=== PATIENT | female | born 1950 | race Two or more races ===

== ENCOUNTER 2024-11-03 17:48 | Inpatient (IN) | payer MEDICARE, MEDICAID ==
[~2024-11-03] VITALS: Ht 165.1 cm; Wt 73.8 kg
[~2024-11-03 17:48] MED LIST: CEFU250T68 PO; INSU1INJ19 SC; LEVO500T91 PO; LOSA-534 PO; METF-372 PO; OMEP1CAP70 PO; PIOG1TAB36 PO; PRAV20TA3 PO; SITA50TA PO
[2024-11-03 18:15] VITALS: PULSE 114; RESP 30; O2SAT 96
[2024-11-03 18:47] LABS: Basophils # (auto) 0 10 ^3/uL (0-0.2); Basophils % (auto) 0.3 % (0.0-2.0); Eosinophils # (auto) 0 10 ^3/uL (0-0.8); Eosinophils % (auto) 0.6 % (0.0-7.0); Lymphocytes # (auto) 1.5 10 ^3/uL (0.4-5.4); Lymphocytes % (auto) 23.6 % (10.0-50.0); Mean Corpuscular Hemoglobin 27.5 pg (28.0-32.0); Mean Corpuscular Hgb Conc. 34.2 g/dL (32.0-36.0); Mean Corpuscular Volume 80.3 fL (80.0-100.0); Monocytes # (auto) 0.4 10 ^3/uL (0-1.3); Neutrophils # (auto) 4.4 10 ^3/uL (1.6-8.6); Neutrophils % (auto) 68.5 % (37.0-80.0); Platelet Count (auto) 331 10^3/uL (140-450); Red Blood Cells 4.36 10^6/uL (4.0-5.20); White Blood Cell 6.4 10^3/uL (4.4-10.8)
--- NOTE | 2024-11-03 18:54 | DVH ---
CHEST RADIOGRAPH Indication: cp Technique: Single frontal view of the chest was obtained COMPARISON: None FINDINGS: Lines and Tubes: None Lungs: Probable mild interstitial pulmonary edema. Pleura: No effusion. No pneumothorax. Cardiomediastinal contours: Unremarkable Bones: Unremarkable IMPRESSION: 1. Probable mild interstitial pulmonary edema.
--- NOTE | 2024-11-03 19:03 | ECG ---
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
[2024-11-03 19:07] LABS: Alanine Aminotransferase 15 U/L (7-40); Albumin 3.9 g/dL (3.2-4.8); Alkaline Phosphatase 58 U/L (46-116); Anion Gap 10 (5-15); BUN/Creatinine Ratio 25.3 (10.0-20.0); Bilirubin, Total 0.4 mg/dL (0.2-1.0); Carbon Dioxide 25 mmol/L (20-31); Chloride 104 mmol/L (98-107); Sodium 139 mmol/L (136-145); Total Protein 7.2 g/dL (5.7-8.2)
[2024-11-03 19:14] LABS: Aspartate Aminotransferase 12 U/L (13-40); Blood Urea Nitrogen 23 mg/dL (9-23); Glucose 162 mg/dL (74-106)
[2024-11-03 19:45] VITALS: PULSE 101; RESP 26; O2SAT 96
[2024-11-03 20:01] LABS: Urine Bacteria FEW /hpf (None Seen); Urine Blood 1+ /uL (Negative); Urine Clarity Clear (Clear); Urine Color Light-Yellow (Yellow); Urine Hyaline Cast FEW /lpf (0 - 2); Urine Mucus FEW (None Seen); Urine Protein, UAD 2+ (Negative); Urine Specific Gravity 1.015 (1.001-1.035); Urine Squamous Epithelial Cell MOD /hpf (<5); Urine Urobilinogen Normal (Negative); Urine WBC 4 /HPF (0-5); Urine pH 7.5 (5.0-9.0)
[2024-11-03] MEDS: IOHEXOL 350 MG/ML 100ML IJ ONE (20:46)
--- NOTE | 2024-11-03 21:23 | DVH ---
EXAM: CT CT ANGIO CHEST CONTRAST History: sob Comparison Study: None TECHNIQUE: A digital vp of digital marketing image was obtained. During the uneventful, intravenous administration of c ontrast material, multislice data acquisition was obtained through the chest. 3-D postprocessing is performed by technologist including MIP imaging Radiation Dose : CTDI vol 27.19 mGy, DLP 1096.48 mGy*cm. Findings: Lungs: Multifocal ground-glass opacities in both lungs. Pleura: Unremarkable Heart/Great vessels: No cardiomegaly or pericardial effusion. No pulmonary embolism, aneurysm, or dis section. Moderate coronary atherosclerosis. Mediastinum: Prominent mediastinal and hilar nodes. Soft tissues/Bones: Mild multilevel degenerative changes of the thoracic spine. Cholelithiasis. The partially visualized upper abdomen is within normal limits. Impression: 1. No evidence of a pulmonary embolism, aneurysm, or dissection. 2. Multifocal ground-glass opacities in both lungs favored an infectious/inflammatory etiology. 3. Prominent mediastinal hilar nodes favored reactive.
--- NOTE | 2024-11-03 22:25 | ED.PDOC ---
HPI Comments 74-year-old female complaining of chest pain no shortness a breath which he was sudden onset approximate 1 hour prior to arrival. Brought in by EMS. Reports it as sharp and dull in nature on the left side. EMS states that upon arrival her heart rate is in the 170s, showing AFib RVR upon arrival to the ER he had heart rate down to 130s showing sinus tach when EKG. Patient reports improvement in the chest pain. Still feeling short of breath. Patient denies any prior cough fever congestion. No prior cardiac history. Chief Complaint: Shortness of Breath Time Seen by MD: 18:00 Reviewed Notes: Nurses Notes Allergies: Coded Allergies: NO KNOWN ALLERGIES (Unverified , 11/03/24) Information Source: Patient Mode of Arrival: EMS Past Medical History PAST MEDICAL HISTORY: Denies Surgical History: AKA, Denies all surgeries CLIPMAN History: No Pertinent CLIPMAN History Constitutional: reports: fatigue, malaise; denies: chills, diaphoresis, fever, sweats, weakness, others EENTM: denies: blurred vision, double vision, ear bleeding, ear discharge, ear drainage, ear pain, ear ringing, eye pain, eye redness, hearing loss, mouth pain, mouth swelling, nasal discharge, nose bleeding, nose congestion, nose pain, photophobia, tearing, throat pain, throat swelling, voice changes, others Respiratory: reports: SOB at rest; denies: cough, hemoptysis, orthopnea, shortness of breath, SOB with excertion, stridor, wheezing, others Cardiovascular: reports: chest pain; denies: dizzy spells, diaphoresis, Dyspnea on exertion, edema, irregular heart beat, left arm pain, lightheadedness, palpitations, PND, syncope, others Gastrointestinal: denies: abdomen distended, abdominal pain, blood streaked bowels, constipated, diarrhea, dysphagia, difficulty swallowing, hematemesis, melena, nausea, poor appetite, poor fluid intake, rectal bleeding, rectal pain, vomiting, others Genitourinary: denies: abnormal vagina bleeding, burning, dyspareunia, dysuria, flank pain, frequency, hematuria, incontinence, pain, , vagina discharge, urgency, others Neurological: denies: dizziness, fainting, headache, left sided numbness, left sided weakness, numbness, paresthesia, pre-existing deficit, right sided numbnes s, right sided weakness, seizure, speech problems, tingling, tremors, weakness, others Musculoskeletal: denies: back pain, gout, joint pain, joint swelling, muscle pain, muscle stiffness, neck pain, others Integumetry: denies: bruises, change in color, change in hair/nails, dryness, laceration, lesions, lumps, rash, wounds, others Physical Exam General Appearance: Moderate Distress HEENT: Normal ENT Inspection, Pharynx Normal, TMs Normal Neck: Full Range of Motion, Non-Tender, Normal, Normal Inspection Respiratory: Chest Non-Tender, Lungs Clear, No Accessory Muscle Use, No Respiratory Distress, Normal Breath Sounds Cardiovascular: No Edema, No JVD, No Murmur, No Gallop, Normal Peripheral Pulses, Regular Rate/Rhythm Breast Exam: Deferred Gastrointestinal: No Organomegaly, Non Tender Genitalia: Deferred Pelvic: Deferred Rectal: Deferred Extremities: No calf tenderness, Normal capillary refill, No pedal edema Musculoskeletal : Apperance: Normal Neurologic: Alert, river guide II-XII nml as Tested, No Motor Deficits, Normal Affect, Normal Mood, No Sensory Deficits Cerebellar Function: Normal Reflexes: Normal Skin: Dry, Normal Color, Warm Lymphatic: No Adenopathy Was a procedure done? Was a procedure done?: No CP Differential Dx Differential Diagnosis: A-fib, Angina, Anxiety / Panic Attack, Heart Failure, NH, V-Fib, V-Tach X-Ray, Labs, Meds, VS Vital Signs Date Time Temp Pulse Resp B/P (MAP) Pulse Ox O2 Delivery O2 Flow Rate FiO2 11/03/24 20:00 101 11/03/24 19:46 98.7 101 26 163/78 (106) 99 98.7 11/03/24 19:45 101 26 96 Nasal Cannula* 4 36 11/03/24 18:15 114 30 96 Nasal Cannula* 4 36 11/03/24 18:15 98.9 114 30 168/78 (108) 96 98.9 11/03/24 18:05 115 11/03/24 17:57 98.6 130 28 142/97 (112) 88 98.6 Lab Test 11/03/24 21:30 11/03/24 20:00 11/03/24 19:00 11/03/24 18:26 Range/Units Troponin I High Sensitivity 93 *H 83 *H 60 *H </=34 ng/L Urine Color Light-yellow Yellow Urine Clarity Clear Clear Urine pH 7.5 5.0-9.0 Urine Specific [place] 1.015 1.001-1.035 Urine Protein 2+ H Negative Urine Ketones Negative Negative Urine Blood 1+ H Negative /uL Urine Nitrite Negative Negative Urine Bilirubin Negative Negative Urine Urobilinogen Normal Negative mg/dL Urine Leukocyte Esterase Negative Negative /uL Urine RBC 14 0 - 4 /hpf Urine Microscopic WBC 4 0-5 /HPF Urine Squamous Epithelial Cells Mod <5 /hpf Urine Bacteria Few H None Seen /hpf Urine Hyaline Casts Few 0 - 2 /lpf Urine Mucus Few None Seen Urine Glucose Trace Normal mg/dL White Blood Count 6.4 4.4-10.8 10^3/uL Red Blood Count 4.36 4.0-5.20 10^6/uL Hemoglobin 12.0 L 12.2-16.2 g/dL Hematocrit 35.0 L 36.0-46.0 % Mean Corpuscular Volume 80.3 80.0-100.0 fL Mean Corpuscular Hemoglobin 27.5 L 28.0-32.0 pg Mean Corpuscular Hemoglobin Concent 34.2 32.0-36.0 g/dL Red Cell Distribution Width 15.0 H 11.8-14.3 % Platelet Count 331 140-450 10^3/uL Mean Platelet Volume 7.8 6.9-10.8 fL Neutrophils (%) (Auto) 68.5 37.0-80.0 % Lymphocytes (%) (Auto) 23.6 10.0-50.0 % Monocytes (%) (Auto) 7.0 0.0-12.0 % Eosinophils (%) (Auto) 0.6 0.0-7.0 % Basophils (%) (Auto) 0.3 0.0-2.0 % Neutrophils # (Auto) 4.4 1.6-8.6 10 ^3/uL Lymphocytes # (Auto) 1.5 0.4-5.4 10 ^3/uL Monocytes # (Auto) 0.4 0-1.3 10 ^3/uL Eosinophils # (Auto) 0 0-0.8 10 ^3/uL Basophils # (Auto) 0 0-0.2 10 ^3/uL Nucleated Red Blood Cells 0.0 % D-Dimer, Quantitative 1.33 H 0.0-0.49 mg/L FEU Sodium Level 139 136-145 mmol/L Potassium Level 5.0 3.5-5.1 mmol/L Chloride Level 104 98-107 mmol/L Carbon Dioxide Level 25 20-31 mmol/L Anion Gap 10 5-15 Blood Urea Nitrogen 23 9-23 mg/dL Creatinine 0.91 0.550-1.02 mg/dL Glomerular Filtration Rate Calc 66 >90 mL/min BUN/Creatinine Ratio 25.3 H 10.0-20.0 Serum Glucose 162 H 74-106 mg/dL Calcium Level 9.0 8.7-10.4 mg/dL Total Bilirubin 0.4 0.2-1.0 mg/dL Aspartate Amino Transferase (AST) 12 L 13-40 U/L Alanine Aminotransferase (ALT) 15 7-40 U/L Alkaline Phosphatase 58 46-116 U/L B-Type Natriuretic Peptide 77.88 0-100 pg/mL Total Protein 7.2 5.7-8.2 g/dL Albumin 3.9 3.2-4.8 g/dL Test 11/03/24 18:06 Range/Units POC Glucose 151 H 70-106 mg/dl X-Ray, Labs, Meds, VS Comment Imaging: X-rays and CT scans were reviewed and interpreted by this provider, im aging shows no fractures and no pathological disease. Pending radiology review. Laboratory: Labs reviewed and interpreted by this provider. Patient was elevated dimer Elevated troponin Patient will be admitted for elevated troponins, ACS, infectious pneumonia Recommend cardiology consult in the morning The patient will be treated with Rocephin and azithromycin, breathing treatment initiated Patient given aspirin 325 Patient has prior medical visits reviewed. Med reconciliation performed Vital signs reviewed Time of 1ST Reevaluation: 22:25 Reevaluation 1ST: Unchanged Patient Education/Counseling: Diagnosis, Treatment Family Education/Counseling: Diagnosis Departure 1 Departure Time of Disposition: 22:23 Impression: Primary Impression: ACS (acute coronary syndrome) Additional Impressions: Pneumonia Qualified Codes: J18.9 - Pneumonia, unspecified organism New onset a-fib Disposition: ADMITTED INPATIENT Condition: Stable Discharged With: Self Critical Care Note Critical Care Time?: No Stability Stability form required: No Heart Score Heart Score: Heart Score Response (Comments) Value History Highly Suspicious 2 EKG Normal 0 Age >65 2 Risk Factors 1 or 2 risk factors 1 Troponin 1-2 x's Normal limit 1 Total 6 AIDEN HOODP November 03, 2024 22:25
--- NOTE | 2024-11-03 22:47 | DVH ---
Left lower extremity venous duplex Clinical History: dvt Comparison: None Technique: Duplex Doppler evaluation of the deep venous system of the left lower extremity from the common femor al vein to the popliteal vein including color Doppler and spectral/pulsed waveform analysis was perfo rmed. Findings: The common femoral vein demonstrates appropriate compressibility and waveform variability. There is compressibility/patency of the great saphenous vein at the proximal thigh. The femoral vein demonstrates appropriate compressibility and waveform variability. The deep femoral vein demonstrates appropriate compressibility and waveform variability. The popliteal vein demonstrates appropriate compressibility and waveform variability. There is normal compressibility at the tibioperoneal trunk. Impression: No evidence of left femoropopliteal venous thrombosis.
[2024-11-03] MEDS: cefTRIAXone SOD 1,000 MG VL IM ONE (22:50)
[2024-11-03] MEDS: ASPirin 325 MG TAB PO ONE (22:51)
[2024-11-03] MEDS: AZITHROMYCIN 500MG/ 250ML 250 ML IV ONE (22:51)
[2024-11-03] MEDS: ALBUTEROL SULF 2.5 MG/0.5ML(0.5%) NEB SOLN NEB ONE (22:52)
[2024-11-03] MEDS: IPRATROPIUM BROM 0.5 MG/2.5ML INH SOL NEB ONE (22:52)
[2024-11-03] MEDS ORDERED: DOCUSATE SOD 100 MG CAP PO PRN (23:00)
[2024-11-03] MEDS ORDERED: ACETAMINOPHEN 325 MG TAB PO PRN (23:00)
[2024-11-03] MEDS ORDERED: MORPHINE SULFATE INJ 2 MG/ml SYRG IV PRN ×2 (23:00)
[2024-11-03] MEDS ORDERED: ONDANSETRON HCL 4 MG/2 ML VIAL IV PRN (23:00)
[2024-11-03] MEDS ORDERED: NITROGLYCERIN 0.4 MG SL TAB SL PRN (23:00)
[2024-11-03] MEDS ORDERED: DEXTROSE (50%) 50ML SYRG IV PRN (23:45)
--- NOTE | 2024-11-03 23:54 | DVHHP2 ---
History of Present Illness History of Present Illness Patient is 78 years old female past medical history of hypertension, diabetes mellitus type 2, hyperlipidemia was brought in by EMS due to acute chest pain and shortness of breaths. As per patient and her daughter patient was sitting in room and suddenly developed shortness of breaths no aggravating or relieving factor patient also endorsed chest pain pressure-like, central 10/10 no aggravating or relieving factor no radiation. On further discussion patient reported having palpitation. Patient and daughter also reported that her left leg has been swollen for more than 1 week also left 5th toe ulceration with some bloody discharge for last 2 weeks. For which she saw her doctor also [place] infectious disease doctor who recommended for MRI of the left foot and put her on levofloxacin. denied any fever or cough or sweating any acute rash or sick contact dysarthria or change in vision. As per EMS record patient had sinus tachycardia rate up to 170, EKG revealed sinus rhythm with sinus tachycardia. Significant lab workup revealed troponin I 60> 83> 93, BNP 77, D-dimer 1.33, CXR Probable mild interstitial pulmonary edema. CT angio chest- No evidence of a pulmonary embolism, aneurysm, or dissection. Multifocal ground-glass opacities in both lungs favored an infectious/inflammatory etiology. Prominent m ediastinal hilar nodes favored reactive. Doppler study of the left lower extremity-No evidence of left femoropopliteal venous thrombosis. Past Medical History Hypertension, diabetes mellitus with complication, diabetic food, suspected peripheral neuropathy, hyperlipidemia Family History Could not provide detailed information Past Social History Lives with daughter, denies smoking/alcoholism/drug abuse Review of Systems Review of Systems Patient was seen today at the bedside. Cardiovascular- deny acute chest pain or shortness of breath or cough or palpitation Respiratory denies cough Gastrointestinal- denies any rectal bleeding, nausea or vomiting Musculoskeletal-left 5th toe ulcer Neurological- denies acute dysarthria, dysphagia, change in vision Psychiatry- denies depression or SI or HI Skin- denies acute rash or purpura Allergies: Coded Allergies: NO KNOWN ALLERGIES (Unverified , 11/03/24) Medications Current Medications Medications Dose Ordered Sig/Sherice Route Start Time Stop Time Status Last Admin Dose Admin Sodium Chloride 10 ml Q8HR IV 11/04/24 06:00 Acetaminophen 325 mg Q4HP PRN PO 11/03/24 23:00 Ondansetron HCl 4 mg Q4HP PRN IV 11/03/24 23:00 Docusate Sodium 100 mg BIDPRN PRN PO 11/03/24 23:00 Morphine Sulfate 2 mg Q4HPRN PRN IV 11/03/24 23:00 Nitroglycerin 0.4 mg Q5MINP PRN SL 11/03/24 23:00 Morphine Sulfate 2 mg Q30M PRN IV 11/03/24 23:00 Enoxaparin Sodium 40 mg DAILY SC 11/05/24 10:00 Aspirin 81 mg DAILY PO 11/04/24 10:00 Atorvastatin Calcium 40 mg HS PO 11/04/24 22:00 Pantoprazole Sodium 40 mg DAILY@0600 PO 11/05/24 06:00 Losartan Potassium 50 mg DAILY PO 11/04/24 10:00 Exam Vital Signs Vital Signs Date Time Temp Pulse Resp B/P (MAP) Pulse Ox O2 Delivery O2 Flow Rate FiO2 11/03/24 23:23 15 140/60 (86) 96 11/03/24 23:00 104 11/03/24 22:52 Simple Mask* 6 50 11/03/24 19:46 98.7 98.7 Exam General examination- awake, alert, oriented HEENT- PEERLA, no acute nasal discharge Cardiovascular- S1-S2 audible, rate and rhythm regular, no murmur Respiratory- CTAB, no wheeze or rhonchi Gastrointestinal-nontender, bowel sound+. Nondistended Musculoskeletal-no acute joint swelling or tenderness or redness Lower extremity- right below-knee amputation, left 5th toe ulceration, left radial pulse positive Neurological- cranial nerves intact, no acute dysarthria or dysphagia Psychiatry- denies depression or SI or HI Skin- no acute rash or purpura Labs/Xrays Labs Test 11/03/24 21:30 11/03/24 19:00 11/03/24 18:26 11/03/24 18:06 Range/Units Magnesium Level 1.4 L 1.6-2.6 mg/dL Troponin I High Sensitivity 93 *H </=34 ng/L Urine Color Light-yellow Yellow Urine Clarity Clear Clear Urine pH 7.5 5.0-9.0 Urine Specific [place] 1.015 1.001-1.035 Urine Protein 2+ H Negative Urine Ketones Negative Negative Urine Blood 1+ H Negative /uL Urine Nitrite Negative Negative Urine Bilirubin Negative Negative Urine Urobilinogen Normal Negative mg/dL Urine Leukocyte Esterase Negative Negative /uL Urine RBC 14 0 - 4 /hpf Urine Microscopic WBC 4 0-5 /HPF Urine Squamous Epithelial Cells Mod <5 /hpf Urine Bacteria Few H None Seen /hpf Urine Hyaline Casts Few 0 - 2 /lpf Urine Mucus Few None Seen Urine Glucose Trace Normal mg/dL White Blood Count 6.4 4.4-10.8 10^3/uL Red Blood Count 4.36 4.0-5.20 10^6/uL Hemoglobin 12.0 L 12.2-16.2 g/dL Hematocrit 35.0 L 36.0-46.0 % Mean Corpuscular Volume 80.3 80.0-100.0 fL Mean Corpuscular Hemoglobin 27.5 L 28.0-32.0 pg Mean Corpuscular Hemoglobin Concent 34.2 32.0-36.0 g/dL Red Cell Distribution Width 15.0 H 11.8-14.3 % Platelet Count 331 140-450 10^3/uL Mean Platelet Volume 7.8 6.9-10.8 fL Neutrophils (%) (Auto) 68.5 37.0-80.0 % Lymphocytes (%) (Auto) 23.6 10.0-50.0 % Monocytes (%) (Auto) 7.0 0.0-12.0 % Eosinophils (%) (Auto) 0.6 0.0-7.0 % Basophils (%) (Auto) 0.3 0.0-2.0 % Neutrophils # (Auto) 4.4 1.6-8.6 10 ^3/uL Lymphocytes # (Auto) 1.5 0.4-5.4 10 ^3/uL Monocytes # (Auto) 0.4 0-1.3 10 ^3/uL Eosinophils # (Auto) 0 0-0.8 10 ^3/uL Basophils # (Auto) 0 0-0.2 10 ^3/uL Nucleated Red Blood Cells 0.0 % D-Dimer, Quantitative 1.33 H 0.0-0.49 mg/L FEU Sodium Level 139 136-145 mmol/L Potassium Level 5.0 3.5-5.1 mmol/L Chloride Level 104 98-107 mmol/L Carbon Dioxide Level 25 20-31 mmol/L Anion Gap 10 5-15 Blood Urea Nitrogen 23 9-23 mg/dL Creatinine 0.91 0.550-1.02 mg/dL Glomerular Filtration Rate Calc 66 >90 mL/min BUN/Creatinine Ratio 25.3 H 10.0-20.0 Serum Glucose 162 H 74-106 mg/dL Calcium Level 9.0 8.7-10.4 mg/dL Total Bilirubin 0.4 0.2-1.0 mg/dL Aspartate Amino Transferase (AST) 12 L 13-40 U/L Alanine Aminotransferase (ALT) 15 7-40 U/L Alkaline Phosphatase 58 46-116 U/L B-Type Natriuretic Peptide 77.88 0-100 pg/mL Total Protein 7.2 5.7-8.2 g/dL Albumin 3.9 3.2-4.8 g/dL POC Glucose 151 H 70-106 mg/dl Assessment/Plan Assessment/Plan Assessment and plan Acute chest pain and shortness of breaths rule out acute coronary syndrome/pulmonary embolism acute hypoxic respiratory failure likely due to acute pulmonary edema/ HF systolic versus diastolic Tachyarrhythmia Hypertension Diabetes mellitus type 2 Diabetic foot Left 5th great toe ulceration and cellulitis, rule out osteomyelitis-patient already had antibiotic levofloxacin Hyperlipidemia Plan Aspirin 81 mg p.o. daily Atorvastatin 40 mg p.o. q.h.s. Losartan 50 mg p.o. daily Lasix 20 mg IV b.i.d. Pantoprazole as prescribed Lovenox as prescribed Ordered podiatry consult for further evaluation and care of left 5th toe ulcer Ordered cardiology consult for further evaluation and care of chest pain and shortness of breaths Ordered echo 2D Ordered wound culture and blood culture Ordered CT scan of the left foot to rule out osteomyelitis- Goals of care, Code status ; discussed with >15 minutes PUD prophylaxis: Pantoprazole DVT prophylaxis: Lovenox Plan discussed with Dr. Fernandez , nursing staff, Total time spent on patient evaluation, chart review, assessment and plan, discussion discussion >35 minutes Plan discussed with: Patient, Daughter, Other (RN) My Orders Orders - TABITHA DANIELS RESIDENT Procedure Category Date Status Time Code Status CODE 11/03/24 Transmitted 22:58 Sodium Chloride Lock PHA 11/04/24 In Process (Saline Lock Ns) 06:00 Acetaminophen Tablet PHA 11/03/24 In Process (Tylenol Tablet) 23:00 Ondansetron Hcl PHA 11/03/24 In Process (Zofran) 23:00 Docusate Sodium PHA 11/03/24 In Process Capsule (Colace 23:00 Complete Blood Count LAB 11/04/24 Verified 04:00 Comprehensive LAB 11/04/24 Verified Metabolic Panel 04:00 Echo 2d Mode Cardiac US 11/03/24 Logged DOP 22:58 Morphine Sulfate PHA 11/03/24 In Process Injection 23:00 Nitroglycerin PHA 11/03/24 In Process Sublingual (Ntrostat 23:00 Morphine Sulfate PHA 11/03/24 In Process Injection 23:00 Oxygen By Nasal RT 11/03/24 Transmitted Cannula 22:58 Stat Ekg For Chest LORAINE 11/03/24 In Process Pain 22:58 Notify Md Of Changes LORAINE 11/03/24 In Process From Base 22:58 Music Box Mechanic For LORAINE 11/03/24 In Process 24 Hours 22:58 Emergency Dysrhythmia LORAINE 11/03/24 In Process Protocol 22:58 Rhythm Strips Once LORAINE 11/03/24 In Process Every Shift 22:58 Thyroid Stimulating LAB 11/03/24 In Process Hormone 23:09 Magnesium LAB 11/04/24 Verified 04:00 Hemoglobin A1c LAB 11/04/24 Verified 04:00 Aspirin Tablet PHA 11/04/24 In Process 10:00 Atorvastatin (Lipitor) PHA 11/04/24 In Process 22:00 Admit ADMIT 11/03/24 Transmitted 23:35 Glucose Blood PHA 11/03/24 Pending (Accu-Chek Comfort 23:45 Insulin R (Human) PHA 11/03/24 Pending (Insulin R) 23:45 Dextrose 50% Syringe PHA 11/03/24 Pending 23:45 * Wound Consult CONS 11/03/24 Transmitted Wound Culture W/ Gs LEONCIO 11/03/24 Logged 23:39 Ct L Foot Wo Contrast CT 11/03/24 Logged 23:39 Blood Culture LEONCIO 11/03/24 Logged 23:43 Enoxaparin Sodium PHA 11/05/24 In Process (Lovenox) 10:00 Pantoprazole Tablet PHA 11/05/24 In Process (Protonix Tablet) 06:00 Losartan Tablet PHA 11/04/24 Logged (Cozaar Tablet) 10:00 * Cardiology Consult CONS 11/03/24 Transmitted 23:51 Date of Service: November 03, 2024 Billing Provider: BRITT FERNANDEZ MD Common Visit Codes: [id number] INP/OBS CARE (HIGH) Secondary Visit Codes: [id number] CARE PLAN 30 MINUTES TABITHA DANIELS RESIDENT November 03, 2024 23:54
[2024-11-04] VITALS (9 sets, daily range): BP systolic 135–147; BP diastolic 59–70; PULSE 80–91; RESP 16–19; TEMP 98.1–98.7; O2SAT 91–97
[2024-11-04] MEDS: ASPirin 81 mg TAB PO ONE (00:01)
[2024-11-04] MEDS: ENOXAPARIN SOD 40 MG/0.4 ML SYRINGE SC ONE (00:10)
[2024-11-04] MEDS: PANTOPRAZOLE 40 MG TAB PO ONE (00:11)
[2024-11-04] MEDS: ATORVASTATIN 20 MG TAB PO ONE (00:11)
[2024-11-04] MEDS: MAGNESIUM SULFATE 1GM/100ML 100 ML IV SCH (01:22)
[2024-11-04] MEDS ORDERED: DEXTROSE (50%) 50ML SYRG IV PRN (01:30)
[2024-11-04 02:05] LABS: Opiate Scree,Urine Neg (NEGATIVE); Phencyclidine Screen, Urine Neg (NEGATIVE)
[2024-11-04 02:09] LABS: COVID19 ANTIGEN SOFIA FIA NEGATIVE (NEGATIVE)
[2024-11-04 02:10] LABS: Rapid Influenza A Negative (Negative); Rapid Influenza B Negative (Negative)
[2024-11-04 02:55] LABS: Amphetamine Screen, Urine Neg (NEGATIVE); Barbiturate Scree,Urine Neg (NEGATIVE); Benzodiazephine Screen, Urine Neg (NEGATIVE); Cannabinoid Screen, Urine Neg (NEGATIVE); Cocaine Screen, Urine Neg (NEGATIVE)
[2024-11-04] MEDS: SODIUM CHLOR 0.9% PF (SALINE LOCK) 10ML VIAL/SYR IV SCH (06:24)
[2024-11-04] MEDS: ACCU-CHEK COMFORT CURVE STRIP VI SCH (06:25)
[2024-11-04] MEDS: InsuLIN REG 1unit/0.01ml Soln (100units/ml) SC SCH (06:29)
[2024-11-04] MEDS: ASPirin 81 mg TAB PO SCH (09:59)
[2024-11-04] MEDS: LOSARTAN POTASSIUM 50 MG TAB PO SCH (10:00)
[2024-11-04] MEDS: FUROSEMIDE 20 MG/2 ML VIAL IV ONE (10:00)
[2024-11-04 11:27] LABS: Basophils # (auto) 0 10 ^3/uL (0-0.2); Basophils % (auto) 0.5 % (0.0-2.0); Eosinophils # (auto) 0 10 ^3/uL (0-0.8); Eosinophils % (auto) 0.3 % (0.0-7.0); Hematocrit 34.9 % (36.0-46.0); Hemoglobin 11.7 g/dL (12.2-16.2); Lymphocytes # (auto) 1.4 10 ^3/uL (0.4-5.4); Lymphocytes % (auto) 25.2 % (10.0-50.0); Mean Corpuscular Hgb Conc. 33.4 g/dL (32.0-36.0); Mean Corpuscular Volume 80.7 fL (80.0-100.0); Monocytes # (auto) 0.4 10 ^3/uL (0-1.3); Monocytes % (auto) 7.2 % (0.0-12.0); Neutrophils # (auto) 3.8 10 ^3/uL (1.6-8.6); Neutrophils % (auto) 66.8 % (37.0-80.0); Platelet Count (auto) 370 10^3/uL (140-450); Red Blood Cells 4.32 10^6/uL (4.0-5.20); Red Cell Distribution Width 14.8 % (11.8-14.3); White Blood Cell 5.7 10^3/uL (4.4-10.8)
--- NOTE | 2024-11-04 11:30 | DVH ---
EXAMINATION: CT CT L FOOT WO CONTRAST INDICATION: OM left foot COMPARISON: None TECHNIQUE: CT of the left foot was performed without contrast. Volume transverse images were obtained reconstructed in multiple planes using bone and soft tissue algorithms. Radiation Dose Information: CT Dose: CTDI volume is 7.75 mGy. Dose-length product is 227.4 mGy*cm FINDINGS: The alignment is normal. Advanced degenerative changes in the midfoot. No acute fracture. Suggestion of bony erosive changes at the distal phalanx of the 5th digit. There are no joint effusions. Diffuse subcutaneous soft-tissue edema and swelling suspicious for cellulitis. IMPRESSION: Cellulitis. Bony erosive changes of the distal phalanx of the 5th digit suspicious for osteomyelitis. Clinical c orrelation advised.
--- NOTE | 2024-11-04 11:32 | DVHINCON2 ---
Date Seen: November 04, 2024 Referring Physician MD Geovanna Reason for Consultation Chest pain/SOB History of Present Illness This is a 74 y.o. female who presented to the Emergency Room via EMS with a chief complain of sudden SOB yesterday. The patient is from [place] with limited [place]. Family at bedside assisting with translation and reporting events prior to admission. They stated the patient sat down to eat when she complain of a sudden onset of SOB and clenching over her chest area which prompted them to call 911. Per records, upon EMS arrival she was found with a heart rate in the 170s bpm showing an atrial fibrillation rhythm with rapid ventricular rate. She was medicated with ASA 324 mg and NTG SL 0.4 mg EN route to the hospital. Upon arrival to the emergency room she was found in a sinus tachycardia rhythm with no evidence of tachyarrhythmias. She underwent multiple 12 lead electrocardiogram x2 revealing a sinus tachycardia rhythm without evidence of acute ischemia. At time of assessment, the patient denies any further cardiac symptoms stating she feels back to normal. Troponin levels have been trending up with latest at 93 ng/L. She also presents with a wound/ulcer to the left 5th toe which she developed two weeks ago and is currently on levaquin therapy as Rx by her PCP on 10/28/2024. Significant medical history includes hypertension, dyslipidemia, insulin-dependent diabetes mellitus, peripheral neuropathy, and history of right BKA. Past Medical History Past medical history reviewed. No other significant than mentioned above. Past Surgical History Right BKA, 2010 Family History Family history reviewed. Social History Denies the use of illicit drugs, alcohol, or tobacco use. Allergies: Coded Allergies: NO KNOWN ALLERGIES (Unverified , 11/03/24) Home Meds Home medications reviewed. Current Medications Current Medications Medications (Trade) Dose Ordered Sig/Sherice Route PRN Reason Start Time Stop Time Status Last Admin Sodium Chloride (Saline Lock Ns) 10 ml Q8HR IV 11/04/24 06:00 11/04/24 06:24 Acetaminophen (Tylenol Tablet) 325 mg Q4HP PRN PO MILD PAIN (1-3 PAIN SCALE) 11/03/24 23:00 Ondansetron HCl (Zofran) 4 mg Q4HP PRN IV NAUSEA / VOMITING 11/03/24 23:00 Docusate Sodium (Colace Capsule) 100 mg BIDPRN PRN PO FOR CONSTIPATION 11/03/24 23:00 Morphine Sulfate 2 mg Q4HPRN PRN IV SEVERE PAIN (7-10 PAIN SCALE) 11/03/24 23:00 Nitroglycerin (Ntrostat Sublingual) 0.4 mg Q5MINP PRN SL FOR CHEST PAIN 11/03/24 23:00 Morphine Sulfate 2 mg Q30M PRN IV FOR CHEST PAIN 11/03/24 23:00 Enoxaparin Sodium (Lovenox) 40 mg DAILY SC 11/05/24 10:00 Aspirin 81 mg DAILY PO 11/04/24 10:00 11/04/24 09:59 Atorvastatin Calcium (Lipitor) 40 mg HS PO 11/04/24 22:00 Pantoprazole Sodium (Protonix Tablet) 40 mg DAILY@0600 PO 11/05/24 06:00 Diagnostic Test (Pha) (Accu-Chek Comfort Curve T) 1 strip ACHS 11/04/24 07:00 11/04/24 10:51 Insulin Human Regular (InsuLIN R) ACHS SC 11/04/24 07:00 11/04/24 06:29 Dextrose 50 ml ACHS PRN IV Blood Sugar LESS THAN 60 11/03/24 23:45 11/04/24 01:28 DC Losartan Potassium (Cozaar Tablet) 50 mg DAILY PO 11/04/24 10:00 11/04/24 10:00 Magnesium Sulfate/ Dextrose 100 ml @ 100 mls/hr Q1HR IV 11/04/24 01:00 11/04/24 02:59 DC 11/04/24 03:45 Dextrose 50 ml UD PRN IV Blood Sugar LESS THAN 60 11/04/24 01:30 Furosemide (Lasix Injection) 20 mg BIDD IV 11/04/24 18:00 Review of Systems Constitutional: No symptom reported Ears, Nose, & Throat: No symptom reported Eyes: No symptom reported Neurological: No symptoms reported Pulmonary/Respiratory: SOB Cardiovascular: Chest pain Gastrointestinal: No symptom reported Genitourinary: No symptom reported Musculoskeletal: No symptom reported Skin: No symptom reported Psychiatric: No symptom reported Endocrine: No symptom reported Hemotologic/Lymphatic: No symptom reported Vital Signs Vital Signs Date Time Temp Pulse Resp B/P (MAP) Pulse Ox O2 Delivery O2 Flow Rate FiO2 11/04/24 10:00 147/65 11/04/24 09:00 98.7 86 17 97 98.7 11/04/24 08:00 Simple Mask* 6 50 Physical Exam General Appearance: Cooperative. Well developed. Obese. In no acute distress Head Exam: Normal inspection Neck Exam: Normal inspection. Non-tender. Normal alignment Pulmonary/Respiratory: Chest non-tender. Clear bilateral breath sounds Cardiovascular/Chest: Regular rate and rhythm. S1, S2. NSR. No murmurs. No JVD. Peripheral Pulses: 2+ Radial (R). 2+ Radial (L). 2+ Pedal (L) Abdominal Exam: Normal bowel sounds. Soft. Nontender. No hepatospenomegaly. No masses Ankle Exam: Negative ankle edema Lower extremities: Negative lower extremity edema Neuro/Mental Status: A&O x4. Coherent Thoughts/Psych: Normal thought pattern. Appropriate mood and affect. Pleasant Appearance: In no acute distress Skin Exam: Ulcer to left 5th toe Labs/Diagnostic Data Labs Test 11/04/24 00:55 11/03/24 21:30 11/03/24 19:00 11/03/24 18:26 Range/Units Influenza Type A Antigen Negative Negative Influenza Type B Antigen Negative Negative SARS-CoV-2 Antigen (Rapid) Negative NEGATIVE Magnesium Level 1.4 L 1.6-2.6 mg/dL Troponin I High Sensitivity 93 *H </=34 ng/L Thyroid Stimulating Hormone (TSH) 1.04 0.55-4.78 uIU/mL Urine Color Light-yellow Yellow Urine Clarity Clear Clear Urine pH 7.5 5.0-9.0 Urine Specific [place] 1.015 1.001-1.035 Urine Protein 2+ H Negative Urine Ketones Negative Negative Urine Blood 1+ H Negative /uL Urine Nitrite Negative Negative Urine Bilirubin Negative Negative Urine Urobilinogen Normal Negative mg/dL Urine Leukocyte Esterase Negative Negative /uL Urine RBC 14 0 - 4 /hpf Urine Microscopic WBC 4 0-5 /HPF Urine Squamous Epithelial Cells Mod <5 /hpf Urine Bacteria Few H None Seen /hpf Urine Hyaline Casts Few 0 - 2 /lpf Urine Mucus Few None Seen Urine Glucose Trace Normal mg/dL Urine Opiates Screen Neg NEGATIVE Urine Fentanyl Screen Pos NEGATIVE Urine Barbiturates Screen Neg NEGATIVE Urine Phencyclidine Screen Neg NEGATIVE Urine Amphetamines Screen Neg NEGATIVE Urine Benzodiazepines Screen Neg NEGATIVE Urine Cocaine Screen Neg NEGATIVE Urine Cannabinoids Screen Neg NEGATIVE White Blood Count 6.4 4.4-10.8 10^3/uL Red Blood Count 4.36 4.0-5.20 10^6/uL Hemoglobin 12.0 L 12.2-16.2 g/dL Hematocrit 35.0 L 36.0-46.0 % Mean Corpuscular Volume 80.3 80.0-100.0 fL Mean Corpuscular Hemoglobin 27.5 L 28.0-32.0 pg Mean Corpuscular Hemoglobin Concent 34.2 32.0-36.0 g/dL Red Cell Distribution Width 15.0 H 11.8-14.3 % Platelet Count 331 140-450 10^3/uL Mean Platelet Volume 7.8 6.9-10.8 fL Neutrophils (%) (Auto) 68.5 37.0-80.0 % Lymphocytes (%) (Auto) 23.6 10.0-50.0 % Monocytes (%) (Auto) 7.0 0.0-12.0 % Eosinophils (%) (Auto) 0.6 0.0-7.0 % Basophils (%) (Auto) 0.3 0.0-2.0 % Neutrophils # (Auto) 4.4 1.6-8.6 10 ^3/uL Lymphocytes # (Auto) 1.5 0.4-5.4 10 ^3/uL Monocytes # (Auto) 0.4 0-1.3 10 ^3/uL Eosinophils # (Auto) 0 0-0.8 10 ^3/uL Basophils # (Auto) 0 0-0.2 10 ^3/uL Nucleated Red Blood Cells 0.0 % D-Dimer, Quantitative 1.33 H 0.0-0.49 mg/L FEU Sodium Level 139 136-145 mmol/L Potassium Level 5.0 3.5-5.1 mmol/L Chloride Level 104 98-107 mmol/L Carbon Dioxide Level 25 20-31 mmol/L Anion Gap 10 5-15 Blood Urea Nitrogen 23 9-23 mg/dL Creatinine 0.91 0.550-1.02 mg/dL Glomerular Filtration Rate Calc 66 >90 mL/min BUN/Creatinine Ratio 25.3 H 10.0-20.0 Serum Glucose 162 H 74-106 mg/dL Calcium Level 9.0 8.7-10.4 mg/dL Total Bilirubin 0.4 0.2-1.0 mg/dL Aspartate Amino Transferase (AST) 12 L 13-40 U/L Alanine Aminotransferase (ALT) 15 7-40 U/L Alkaline Phosphatase 58 46-116 U/L B-Type Natriuretic Peptide 77.88 0-100 pg/mL Total Protein 7.2 5.7-8.2 g/dL Albumin 3.9 3.2-4.8 g/dL Test 11/03/24 18:06 Range/Units POC Glucose 151 H 70-106 mg/dl Assessment Chest pain rule out coronary artery disease Diabetic ulcer to left 5th toe rule out peripheral arterial disease Rule out structural heart disease Rule out tachyarrhythmias PE/DVT ruled out Hypomagnesemia Insulin-dependent diabetes mellitus Hypertension Dyslipidemia Right BKA Plan/Recommendation We will continue the following plan/recommendations (Dr. Mackay): * Echocardiogram to evaluate cardiac function * Cardiolite stress test rule out coronary artery disease * Bilateral peripheral arterial duplex rule out PAD * Outpatient event monitor rule out tachyarrhythmias * Reported A-fib with RVR prior to arrival. No evidence as in-patient * Monitor ECG changes closely and notify * Replete electrolytes as necessary, K>4 and Mg>2 * DVT/VTE prophylaxis * Repeat blood work Thank you for allowing us to participate in this patient's care. Please call if you have any questions or concerns. This medical document was created using an electronic medical record system with voice recognition software and computerized dictation system. Although this document has been carefully reviewed, there might still be some phonetic and typographical errors. Occasional wrong-word or ``sound-alike substitutions may have occurred due to the inherent limitations of voice recognition software. These areas are purely typographical due to imperfections of the software programs and do not reflect any compromise in the patient's medical care. Please read the chart carefully and recognize, using context, where these substitutions have occurred. Plan discussed with: Patient, Daughter, Son, Other NYHA Physical activity limitations: NA Date of Service: November 04, 2024 Billing Provider: RICKEY SALCEDO Cardiology Common Codes: [id number] INP/OBS CARE (High) RICKEY SALCEDO November 04, 2024 11:32
[2024-11-04 11:40] LABS: Anion Gap 8 (5-15); Calcium 9.6 mg/dL (8.7-10.4); Carbon Dioxide 27 mmol/L (20-31); Chloride 106 mmol/L (98-107); Potassium 4.6 mmol/L (3.5-5.1); Sodium 141 mmol/L (136-145)
[2024-11-04 11:45] LABS: Alanine Aminotransferase 11 U/L (7-40); Albumin 4.1 g/dL (3.2-4.8); Alkaline Phosphatase 55 U/L (46-116); Anion Gap 7 (5-15); BUN/Creatinine Ratio 20.9 (10.0-20.0); Blood Urea Nitrogen 19 mg/dL (9-23); Calcium 9.5 mg/dL (8.7-10.4); Carbon Dioxide 27 mmol/L (20-31); Magnesium 1.9 mg/dL (1.6-2.6); Potassium 4.6 mmol/L (3.5-5.1); Sodium 141 mmol/L (136-145); Total Protein 7.7 g/dL (5.7-8.2)
[2024-11-04 11:46] LABS: BUN/Creatinine Ratio 20.4 (10.0-20.0); Bilirubin, Total 0.6 mg/dL (0.2-1.0); Blood Urea Nitrogen 19 mg/dL (9-23); LDL Cholesterol 56 mg/dL (< 100); Triglycerides 91 mg/dL (< 150)
[2024-11-04 11:48] LABS: Aspartate Aminotransferase 12 U/L (13-40); Chloride 107 mmol/L (98-107); Cholesterol 108 mg/dL (< 200); Glucose 143 mg/dL (74-106)
[2024-11-04 11:50] LABS: Glucose 144 mg/dL (74-106); HDL Cholesterol 34 mg/dL (40-59)
[2024-11-04] MEDS: MAGNESIUM SULFATE 1GM/100ML 100 ML IV ONE (11:59)
--- NOTE | 2024-11-04 12:09 | DVHPN2 ---
Subjective 74-year-old female diabetic with a history of hypertension, diabetes, mixed hyperlipidemia, history of [id number] amputation of the right leg previously, came with the chest pain for 1 day. The pain is a pressure sensation in the chest associated with shortness of breaths Chest x-ray showed some pulmonary edema She has no symptoms suggestive of pneumonia Troponin was elevated at 60 and 83 and 93 She has no history of heart disease in the past She had an infection in her left foot 5th toe for about 2 weeks that has not been healing well She has a history of amputation of her right leg few years back Changes from previous H/P or p: Changes Objective Vitals Vital Signs Date Time Temp Pulse Resp B/P (MAP) Pulse Ox O2 Delivery O2 Flow Rate FiO2 11/04/24 10:00 147/65 11/04/24 09:00 98.7 86 17 97 98.7 11/04/24 08:00 Simple Mask* 6 50 Intake/Output Intake and Output 11/04/24 07:00 Intake Total 350 ml Balance 350 ml Intake Oral 0 ml IV Total 350 ml General Appearance: Alert, Oriented X3, Cooperative, No acute distress Lungs: Clear to auscultation, Normal air movement Cardiovascular: Regular rate, Normal S1, Normal S2 Abdomen: Normal bowel sounds, Soft, No tenderness Extremities: No edema Medications Current Medications Medications Dose Ordered Sig/Sherice Route Start Time Stop Time Status Last Admin Dose Admin Sodium Chloride 10 ml Q8HR IV 11/04/24 06:00 11/04/24 06:24 10 ML Acetaminophen 325 mg Q4HP PRN PO 11/03/24 23:00 Ondansetron HCl 4 mg Q4HP PRN IV 11/03/24 23:00 Docusate Sodium 100 mg BIDPRN PRN PO 11/03/24 23:00 Morphine Sulfate 2 mg Q4HPRN PRN IV 11/03/24 23:00 Nitroglycerin 0.4 mg Q5MINP PRN SL 11/03/24 23:00 Morphine Sulfate 2 mg Q30M PRN IV 11/03/24 23:00 Enoxaparin Sodium 40 mg DAILY SC 11/05/24 10:00 Aspirin 81 mg DAILY PO 11/04/24 10:00 11/04/24 09:59 81 MG Atorvastatin Calcium 40 mg HS PO 11/04/24 22:00 Pantoprazole Sodium 40 mg DAILY@0600 PO 11/05/24 06:00 Diagnostic Test (Pha) 1 strip ACHS 11/04/24 07:00 11/04/24 10:51 1 STRIP Insulin Human Regular ACHS SC 11/04/24 07:00 11/04/24 06:29 2 UNITS Losartan Potassium 50 mg DAILY PO 11/04/24 10:00 11/04/24 10:00 50 MG Dextrose 50 ml UD PRN IV 11/04/24 01:30 Furosemide 20 mg BIDD IV 11/04/24 18:00 Laboratory Results Laboratory Tests 11/04/24 10:49 Chemistry Test 11/03/24 18:26 11/03/24 21:30 11/04/24 10:49 Albumin 3.9 g/dL (3.2-4.8) 4.1 g/dL (3.2-4.8) Calcium Level 9.0 mg/dL (8.7-10.4) 9.6 mg/dL (8.7-10.4) Total Protein 7.2 g/dL (5.7-8.2) 7.7 g/dL (5.7-8.2) Magnesium Level 1.4 mg/dL (1.6-2.6) L 1.9 mg/dL (1.6-2.6) Coagulation Test 11/03/24 18:26 D-Dimer, Quantitative 1.33 mg/L FEU (0.0-0.49) H Lipid panel Test 11/04/24 10:49 Cholesterol Level 108 mg/dL (< 200) HDL Cholesterol 34 mg/dL (40-59) L Triglycerides Level 91 mg/dL (< 150) Cardiac Markers Test 11/03/24 18:26 B-Type Natriuretic Peptide 77.88 pg/mL (0-100) LFT Test 11/03/24 18:26 11/04/24 10:49 Alanine Aminotransferase (ALT) 15 U/L (7-40) 11 U/L (7-40) Alkaline Phosphatase 58 U/L (46-116) 55 U/L (46-116) Aspartate Amino Transferase (AST) 12 U/L (13-40) L 12 U/L (13-40) L Total Bilirubin 0.4 mg/dL (0.2-1.0) 0.6 mg/dL (0.2-1.0) HgA1c, TSH Test 11/03/24 21:30 11/04/24 10:49 Thyroid Stimulating Hormone (TSH) 1.04 uIU/mL (0.55-4.78) Hemoglobin A1c 7.1 % A1C (<5.7) H Urinalysis Test 11/03/24 19:00 Urine Color Light-yellow (Yellow) Urine Clarity Clear (Clear) Urine pH 7.5 (5.0-9.0) Urine Specific [place] 1.015 (1.001-1.035) Urine Protein 2+ (Negative) H Urine Ketones Negative (Negative) Urine Blood 1+ /uL (Negative) H Urine Nitrite Negative (Negative) Urine Bilirubin Negative (Negative) Urine Urobilinogen Normal mg/dL (Negative) Urine Leukocyte Esterase Negative /uL (Negative) Urine RBC 14 /hpf (0 - 4) Urine Microscopic WBC 4 /HPF (0-5) Urine Squamous Epithelial Cells Mod /hpf (<5) Urine Bacteria Few /hpf (None Seen) H Urine Hyaline Casts Few /lpf (0 - 2) Urine Mucus Few (None Seen) Urine Glucose Trace mg/dL (Normal) Assessment/Plan Assessment/Plan Acute coronary syndrome NSTEMI Rule out coronary artery disease Left foot 5th digit osteomyelitis Type 2 diabetes Hypertension Mixed hyperlipidemia Pulmonary edema rule out heart failure History of [id number] amputation of the right lower extremity Plan Aspirin Lipitor Nitroglycerin as needed IV Lasix Echocardiogram Cardiology consult Stress test in progress today Start IV antibiotics empirically for the left 5th digit of the left foot for possible osteomyelitis, Rocephin and vancomycin Podiatry consult Full code Advance directives discussed for 20 minutes Discussed with the daughter at the bedside Plan discussed with: Patient, Daughter My Orders Orders - KRIS GONZALEZ MD Procedure Category Date Status Time Consistent DIET 11/04/24 Transmitted [facility]Diabetes Lunch Date of Service: November 04, 2024 Billing Provider: KRIS GONZALEZ MD Common Visit Codes: [id number] INP/OBS CARE(HIGH) Secondary Visit Codes: [id number] CARE PLAN 30 MINUTES KRIS GONZALEZ MD November 04, 2024 12:09
--- NOTE | 2024-11-04 12:44 | ECG ---
[facility] Test Date: 2024-11-03 Test Time: 22:45:55 Pat Name: GREGORIO DEWEY Department: ED Room: [facility]6T A Gender: F Bale Stacker: babatunde : 1950 Requested By: AIDEN HOOD Order Number: [id number] Reading MD: Ney Mackay Measurements Intervals [place] Rate: 99 P: 23 [place]: 194 QRS: -7 QRSD: 76 T: 68 QT: 360 QTc: 462 Interpretive Statements Sinus rhythm Probable left atrial enlargement Baseline wander in lead(s) V2 Electronically Signed On 11-04-2024 21:09:35 PDT by Ney Mackay Please click the below link to view image of tracing.
[2024-11-04] MEDS: REGADENOSON 0.4 MG/5 ML SYRG IV ONE ×2 (13:48)
[2024-11-04] MEDS: VANCOMYCIN 1GM/200ML PM 200 ML IV ONE (14:25)
[2024-11-04] MEDS: cefTRIAXone 1GM/50ML D5W 50 ML IV ONE (14:30)
--- NOTE | 2024-11-04 15:25 | DVH ---
Left Lower Extremity Arterial Duplex Date: 11/04/2024 02:05 PM Clinical History: Wound rule out PAD Comparison: None Technique: Duplex Doppler evaluation including color Doppler and spectral/pulsed waveform analysis of the left l ower extremity arteries was performed. Finding: LEFT: Peak systolic velocities are as follows: [employer] 173 cm/s Deep femoral 183 cm/s SFA proximal 104 cm/s SFA mid-portion 113 cm/s SFA distal 74 cm/s Popliteal 72 cm/s Posterior tibial 157 cm/s Dorsalis pedis 26 cm/s The waveforms are monophasic in the left posterior tibial artery.. REFERENCE VALUES, [facility]) vascular Imaging Lab Criteria: Peak systolic velocity ranges (in cm/sec) are as follows: <150 cm/s - <20 % stenosis 150-200 cm/s - 20-49% stenosis 200-300 cm/s - 50-75% stenosis >300 cm/s -> 75% stenosis IMPRESSION: Approximately 30-49% stenosis of the leftt common femoral artery. Approximately 30-49% stenosis of th e left deep femoral artery. Approximately 30-49% stenosis of the posterior tibial artery with monopha sic waveforms.
--- NOTE | 2024-11-04 16:44 | DVHINCON2 ---
Date Seen: November 04, 2024 Reason for Consultation Left toe wound History of Present Illness Patient is 78 years old female past medical history of hypertension, diabetes mellitus type 2, hyperlipidemia was brought in by EMS due to acute chest pain and shortness of breaths. As per patient and her daughter patient was sitting in room and suddenly developed shortness of breaths no aggravating or relieving factor patient also endorsed chest pain pressure-like, central 10/10 no aggravating or relieving factor no radiation. On further discussion patient reported having palpitation. Patient and daughter also reported that her left leg has been swollen for more than 1 week also left 5th toe ulceration with some bloody discharge for last 2 weeks. For which she saw her doctor also [place] infectious disease doctor who recommended for MRI of the left foot and put her on levofloxacin. denied any fever or cough or sweating any acute rash or sick contact dysarthria or change in vision. As per EMS record patient had sinus tachycardia rate up to 170, EKG revealed sinus rhythm with sinus tachycardia. Significant lab workup revealed troponin I 60> 83> 93, BNP 77, D-dimer 1.33, CXR Probable mild interstitial pulmonary edema. CT angio chest- No evidence of a pulmonary embolism, aneurysm, or dissection. Multifocal ground-glass opacities in both lungs favored an infectious/inflammatory etiology. Prominent mediastinal hilar nodes favored reactive. Doppler study of the left lower extremity-No evidence of left femoropopliteal venous thrombosis. Past Medical History See H&P Past Surgical History See H&P Allergies: Coded Allergies: NO KNOWN ALLERGIES (Unverified , 11/03/24) Current Medications Current Medications Medications (Trade) Dose Ordered Sig/Sherice Route PRN Reason Start Time Stop Time Status Last Admin Sodium Chloride (Saline Lock Ns) 10 ml Q8HR IV 11/04/24 06:00 11/04/24 06:24 Acetaminophen (Tylenol Tablet) 325 mg Q4HP PRN PO MILD PAIN (1-3 PAIN SCALE) 11/03/24 23:00 Ondansetron HCl (Zofran) 4 mg Q4HP PRN IV NAUSEA / VOMITING 11/03/24 23:00 Docusate Sodium (Colace Capsule) 100 mg BIDPRN PRN PO FOR CONSTIPATION 11/03/24 23:00 Morphine Sulfate 2 mg Q4HPRN PRN IV SEVERE PAIN (7-10 PAIN SCALE) 11/03/24 23:00 Nitroglycerin (Ntrostat Sublingual) 0.4 mg Q5MINP PRN SL FOR CHEST PAIN 11/03/24 23:00 Morphine Sulfate 2 mg Q30M PRN IV FOR CHEST PAIN 11/03/24 23:00 Enoxaparin Sodium (Lovenox) 40 mg DAILY SC 11/05/24 10:00 Aspirin 81 mg DAILY PO 11/04/24 10:00 11/04/24 09:59 Atorvastatin Calcium (Lipitor) 40 mg HS PO 11/04/24 22:00 Pantoprazole Sodium (Protonix Tablet) 40 mg DAILY@0600 PO 11/05/24 06:00 Diagnostic Test (Pha) (Accu-Chek Comfort Curve T) 1 strip ACHS 11/04/24 07:00 11/04/24 16:08 Insulin Human Regular (InsuLIN R) ACHS SC 11/04/24 07:00 11/04/24 06:29 Dextrose 50 ml ACHS PRN IV Blood Sugar LESS THAN 60 11/03/24 23:45 11/04/24 01:28 DC Losartan Potassium (Cozaar Tablet) 50 mg DAILY PO 11/04/24 10:00 11/04/24 10:00 Magnesium Sulfate/ Dextrose 100 ml @ 100 mls/hr Q1HR IV 11/04/24 01:00 11/04/24 02:59 DC 11/04/24 03:45 Dextrose 50 ml UD PRN IV Blood Sugar LESS THAN 60 11/04/24 01:30 Furosemide (Lasix Injection) 20 mg BIDD IV 11/04/24 18:00 Ceftriaxone Sodium 50 ml @ 100 mls/hr DAILY@09 IV 11/05/24 09:00 Vital Signs Vital Signs Date Time Temp Pulse Resp B/P (MAP) Pulse Ox O2 Delivery O2 Flow Rate FiO2 11/04/24 12:44 98.7 83 17 135/59 (84) 91 98.7 11/04/24 08:00 Simple Mask* 6 50 Physical Exam Dermatological: Skin is dry with mild erythema and some maceration around the wound site No gross deformities noted Mild non-pitting edema present bilaterally left foot eschar on the 5th toe Vascular: Dorsalis pedis and posterior tibial pulses are 1+ bilaterally Capillary refill is under 2 seconds Skin temperature is warm bilaterally Neurologic: Protective sensation is absent on the plantar forefoot bilaterally Monofilament testing reveals decreased sensation in multiple plantar sites Musculoskeletal: Range of motion at the ankle and MTP joints is within normal limits. Strength is 5/5 in all tested muscle groups. Gait is antalgic due to offloading of the affected limb. Labs/Diagnostic Data Labs Test 11/04/24 16:07 11/04/24 10:49 11/04/24 00:55 11/03/24 21:30 Range/Units POC Glucose 173 H 70-106 mg/dl White Blood Count 5.7 4.4-10.8 10^3/uL Red Blood Count 4.32 4.0-5.20 10^6/uL Hemoglobin 11.7 L 12.2-16.2 g/dL Hematocrit 34.9 L 36.0-46.0 % Mean Corpuscular Volume 80.7 80.0-100.0 fL Mean Corpuscular Hemoglobin 27.0 L 28.0-32.0 pg Mean Corpuscular Hemoglobin Concent 33.4 32.0-36.0 g/dL Red Cell Distribution Width 14.8 H 11.8-14.3 % Platelet Count 370 140-450 10^3/uL Mean Platelet Volume 8.0 6.9-10.8 fL Neutrophils (%) (Auto) 66.8 37.0-80.0 % Lymphocytes (%) (Auto) 25.2 10.0-50.0 % Monocytes (%) (Auto) 7.2 0.0-12.0 % Eosinophils (%) (Auto) 0.3 0.0-7.0 % Basophils (%) (Auto) 0.5 0.0-2.0 % Neutrophils # (Auto) 3.8 1.6-8.6 10 ^3/uL Lymphocytes # (Auto) 1.4 0.4-5.4 10 ^3/uL Monocytes # (Auto) 0.4 0-1.3 10 ^3/uL Eosinophils # (Auto) 0 0-0.8 10 ^3/uL Basophils # (Auto) 0 0-0.2 10 ^3/uL Nucleated Red Blood Cells 0.0 % Sodium Level 141 136-145 mmol/L Potassium Level 4.6 3.5-5.1 mmol/L Chloride Level 106 98-107 mmol/L Carbon Dioxide Level 27 20-31 mmol/L Anion Gap 8 5-15 Blood Urea Nitrogen 19 9-23 mg/dL Creatinine 0.93 0.550-1.02 mg/dL Glomerular Filtration Rate Calc 65 >90 mL/min BUN/Creatinine Ratio 20.4 H 10.0-20.0 Serum Glucose 144 H 74-106 mg/dL Hemoglobin A1c 7.1 H <5.7 % A1C Calcium Level 9.6 8.7-10.4 mg/dL Magnesium Level 1.9 1.6-2.6 mg/dL Total Bilirubin 0.6 0.2-1.0 mg/dL Aspartate Amino Transferase (AST) 12 L 13-40 U/L Alanine Aminotransferase (ALT) 11 7-40 U/L Alkaline Phosphatase 55 46-116 U/L Troponin I High Sensitivity 140 *H </=34 ng/L Total Protein 7.7 5.7-8.2 g/dL Albumin 4.1 3.2-4.8 g/dL Triglycerides Level 91 < 150 mg/dL Cholesterol Level 108 < 200 mg/dL LDL Cholesterol 56 < 100 mg/dL HDL Cholesterol 34 L 40-59 mg/dL Influenza Type A Antigen Negative Negative Influenza Type B Antigen Negative Negative SARS-CoV-2 Antigen (Rapid) Negative NEGATIVE Thyroid Stimulating Hormone (TSH) 1.04 0.55-4.78 uIU/mL Test 11/03/24 19:00 11/03/24 18:26 Range/Units Urine Color Light-yellow Yellow Urine Clarity Clear Clear Urine pH 7.5 5.0-9.0 Urine Specific [place] 1.015 1.001-1.035 Urine Protein 2+ H Negative Urine Ketones Negative Negative Urine Blood 1+ H Negative /uL Urine Nitrite Negative Negative Urine Bilirubin Negative Negative Urine Urobilinogen Normal Negative mg/dL Urine Leukocyte Esterase Negative Negative /uL Urine RBC 14 0 - 4 /hpf Urine Microscopic WBC 4 0-5 /HPF Urine Squamous Epithelial Cells Mod <5 /hpf Urine Bacteria Few H None Seen /hpf Urine Hyaline Casts Few 0 - 2 /lpf Urine Mucus Few None Seen Urine Glucose Trace Normal mg/dL Urine Opiates Screen Neg NEGATIVE Urine Fentanyl Screen Pos NEGATIVE Urine Barbiturates Screen Neg NEGATIVE Urine Phencyclidine Screen Neg NEGATIVE Urine Amphetamines Screen Neg NEGATIVE Urine Benzodiazepines Screen Neg NEGATIVE Urine Cocaine Screen Neg NEGATIVE Urine Cannabinoids Screen Neg NEGATIVE D-Dimer, Quantitative 1.33 H 0.0-0.49 mg/L FEU B-Type Natriuretic Peptide 77.88 0-100 pg/mL Problems(with codes): (1) ACS (acute coronary syndrome) (2) New onset a-fib (3) Pneumonia (4) Eschar of toe (5) Cellulitis of toe of left foot Plan/Recommendation ASSESSMENT: Patient is a A 74 year old seen on the floor for a worsening ulcer PLAN: - The patients chart was reviewed, clinical findings were discussed with the patient, the etiologies of the conditions were discussed in detail, and a treatment plan was agreed to at this time, with both oral and written instructions provided. - reviewed advanced imaging - discussed that the wound appears to be stable at this point - recommend going home on p.o. antibiotics - no dressings needed at this point - should follow up with the be 1 week after discharge - no surgical intervention at this point All questions were answered and concerns addressed to the patient's satisfaction. The patient was given the phone number to the clinic and was told how to make contact with the clinic should any concerns or questions arise. Patient understands that if any questions or concerns arise prior to the next appointment, we should be contacted immediately. FOLLOW-UP: Continue to follow while inpatient Plan discussed with: Patient Date of Service: November 04, 2024 Billing Provider: TAMMIE MATA DPM Common Visit Codes: CONSULT ONLY Consultation Codes: [id number] CONSULT <80MIN TAMMIE MATA DPM November 04, 2024 16:44
[2024-11-04] MEDS: FUROSEMIDE 20 MG/2 ML VIAL IV SCH (17:30)
[2024-11-04] MEDS: ATORVASTATIN 20 MG TAB PO SCH (21:44)
[2024-11-05] VITALS (8 sets, daily range): BP systolic 99–156; BP diastolic 50–79; PULSE 84–113; RESP 16–20; TEMP 97.6–98.7; O2SAT 91–97
[2024-11-05] MEDS: PANTOPRAZOLE 40 MG TAB PO SCH (05:09)
[2024-11-05] MEDS: cefTRIAXone 1GM/50ML D5W 50 ML IV SCH (09:30)
[2024-11-05] MEDS: ENOXAPARIN SOD 40 MG/0.4 ML SYRINGE SC SCH (09:31)
[2024-11-05 09:58] LABS: Hepatitis B Surface Antibody Negative (Negative)
[2024-11-05 10:40] LABS: Hepatitis C Antibody Negative (Negative)
[2024-11-05] MEDS ORDERED: ENOXAPARIN SOD 80 MG/0.8ML SYRINGE SC ONE (11:15)
--- NOTE | 2024-11-05 11:51 | DVHSR ---
APPROVED REPORT EXAM: Two-dimensional and M-mode echocardiogram with Doppler and color Doppler. Blood Pressure: 144/63 mmHg INDICATION SOB RISK FACTORS Height: 144, Weight: 175 DIMENSIONS LVDd3.9 (3.8-5.7cm)LA (2D)4.5 (1.9-4.0cm)Aortic Root3.6 (2.0-3.7cm) LVDs2.3 (2.5-4.0cm)LA (MM) (1.9-4.0cm)Aortic Cusp Exc1.6 (1.5-2.0cm) EF (%) 60.0 (55-70%)Rt. Atrium3.3 (1.9-4.0cm)Asc. Aorta3.4 cm IVSd1.2 (0.7-1.1cm)RV (D) (1.8-2.4cm) PWd1.2 (0.7-1.1cm) Mitral Valve MitralMitral Stenosis E wave1.29m/sMV Mean GR.5mmHg A wave1.57m/sMV Peak GR.111mmHg E/A ratio0.82D MVAcm2 DECEL [id number] 1/2 Xouo87mh IVRTmsDop MVA4.38cm2 Aortic Valve Aortic ValveAortic Stenosis V11.04m/Harini Mean GR.5mmHg V21.43m/Harini Peak GR.8mmHg LVOT Diameter2.5 (1.8-2.4cm)Doppler AVA3.57cm2 Pulmonic Valve V21.09m/s Other Information Quality : Technically LimitedRhythm : Technically limited study due to body habitus.patient position. Conclusion Technically good study. Sinus rhythm. Concentric LVH with left atrial enlargement. Valves are normal. EF of 60% with normal RV function. Doppler reveals [id number] mitral insufficiency. No pericardial effusion masses or vegetations.
--- NOTE | 2024-11-05 11:58 | DVHPN2 ---
Consult Progress Note Date Seen: November 05, 2024 Subjective Review of Systems: CVS:Normal, RESPIRATORY:Normal, NEURO:Normal Other Systems: Notified of atrial fibrillation events, now NSR Objective vital signs Vital Sign Date Time Temp Pulse Resp B/P (MAP) Pulse Ox O2 Delivery O2 Flow Rate FiO2 11/05/24 09:31 144/59 11/05/24 08:41 97.9 89 20 93 97.9 11/05/24 08:00 Room Air* 0 21 Total Intake and Output 11/04/24 11/04/24 11/05/24 15:00 23:00 07:00 Intake Total 100 ml 650 ml 0 ml Balance 100 ml 650 ml 0 ml medications Current Medications Medications Dose Ordered Sig/Sherice Route Start Time Stop Time Status Last Admin Dose Admin Sodium Chloride 10 ml Q8HR IV 11/04/24 06:00 11/05/24 05:09 10 ML Acetaminophen 325 mg Q4HP PRN PO 11/03/24 23:00 Ondansetron HCl 4 mg Q4HP PRN IV 11/03/24 23:00 Docusate Sodium 100 mg BIDPRN PRN PO 11/03/24 23:00 Morphine Sulfate 2 mg Q4HPRN PRN IV 11/03/24 23:00 Nitroglycerin 0.4 mg Q5MINP PRN SL 11/03/24 23:00 Morphine Sulfate 2 mg Q30M PRN IV 11/03/24 23:00 Aspirin 81 mg DAILY PO 11/04/24 10:00 11/05/24 09:30 81 MG Atorvastatin Calcium 40 mg HS PO 11/04/24 22:00 11/04/24 21:44 40 MG Pantoprazole Sodium 40 mg DAILY@0600 PO 11/05/24 06:00 11/05/24 05:09 40 MG Diagnostic Test (Pha) 1 strip ACHS 11/04/24 07:00 11/05/24 06:14 1 STRIP Insulin Human Regular ACHS SC 11/04/24 07:00 11/04/24 21:54 8 UNITS Losartan Potassium 50 mg DAILY PO 11/04/24 10:00 11/05/24 09:31 50 MG Dextrose 50 ml UD PRN IV 11/04/24 01:30 Furosemide 20 mg BIDD IV 11/04/24 18:00 11/05/24 05:09 20 MG Ceftriaxone Sodium 50 ml @ 100 mls/hr DAILY@09 IV 11/05/24 09:00 11/05/24 09:30 100 MLS/HR Enoxaparin Sodium 80 mg Q12HR SC 11/05/24 22:00 Examination: LUNGS:Normal, CVS:Normal (NSR. 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 Mackay) * Echocardiogram revealed LVEF 60% with normal RV function * Cardiolite stress test rule out coronary ischemic * Preliminary, non-ischemic as reviewed by Dr. Mackay * Left lower extremity peripheral arterial duplex * Mild PAD at 30-49% * Rate control, initiate metoprolol XL. Uptitrate as tolerated * Antiarrhythmic therapy, initiate low-dose Flecainide * DOAC therapy, initiate Eliquis * [id number] Score 4 points. HAS-BLED Score 1 point * Replete electrolytes as necessary, K>4 and Mg>2 * Follow-up with Dr. Mackay on 11/19/2024 at 0900 * Information provided to grand-daughter at bedside There is no further cardiac work-up indicated at this time. Kindly call if in need to re-consult. Thank you for allowing us to participate in this patient's care. This medical document was created using an electronic medical record system with voice recognition software and computerized dictation system. Although this document has been carefully reviewed, there might still be some phonetic and typographical errors. Occasional wrong-word or ``sound-alike substitutions may have occurred due to the inherent limitations of voice recognition software. These areas are purely typographical due to imperfections of the software programs and do not reflect any compromise in the patient's medical care. Please read the chart carefully and recognize, using context, where these substitutions have occurred. Plan discussed with: Patient, Other (Grand-daughter) Dietary Evaluation Review Comments: 1) Levi 1 pk BID (ordered per protocol) 2) Refer to Corporate Traffic Manager on DC 3) Continue current plan of care Expected Outcomes/Goals: Pt will meet 75% estimated needs wound to improve Fu 3-5 days Date of Service: November 05, 2024 Billing Provider: RICKEY SALCEDO Cardiology Common Codes: [id number] HOSP CARE(High RICKEY SALCEDO November 05, 2024 11:58
[2024-11-05] MEDS: ENOXAPARIN SOD 40 MG/0.4 ML SYRINGE SC ONE (12:01)
[2024-11-05] MEDS: METOPROLOL SUCCINATE XL 50 MG TAB PO ONE (12:12)
[2024-11-05] MEDS: FLECAINIDE ACETATE 50 MG TAB PO ONE (13:02)
--- NOTE | 2024-11-05 15:18 | DVHPN2 ---
Subjective Denies any complaints She's having episodes of afib on and off No chest pain Changes from previous H/P or p: Changes Objective Vitals Vital Signs Date Time Temp Pulse Resp B/P (MAP) Pulse Ox O2 Delivery O2 Flow Rate FiO2 11/05/24 12:12 88 144/59 11/05/24 08:41 97.9 20 93 97.9 11/05/24 08:00 Room Air* 0 21 Intake/Output Intake and Output 11/05/24 07:00 Intake Total 750 ml Balance 750 ml Intake Oral 400 ml IV Total 350 ml # Voids 2 General Appearance: Alert, Oriented X3, Cooperative, No acute distress Lungs: Clear to auscultation, Normal air movement Cardiovascular: Regular rate, Normal S1, Normal S2 Abdomen: Normal bowel sounds, Soft, No tenderness Extremities: No edema Medications Current Medications Medications Dose Ordered Sig/Sherice Route Start Time Stop Time Status Last Admin Dose Admin Sodium Chloride 10 ml Q8HR IV 11/04/24 06:00 11/05/24 13:03 10 ML Acetaminophen 325 mg Q4HP PRN PO 11/03/24 23:00 Ondansetron HCl 4 mg Q4HP PRN IV 11/03/24 23:00 Docusate Sodium 100 mg BIDPRN PRN PO 11/03/24 23:00 Morphine Sulfate 2 mg Q4HPRN PRN IV 11/03/24 23:00 Nitroglycerin 0.4 mg Q5MINP PRN SL 11/03/24 23:00 Morphine Sulfate 2 mg Q30M PRN IV 11/03/24 23:00 Atorvastatin Calcium 40 mg HS PO 11/04/24 22:00 11/04/24 21:44 40 MG Pantoprazole Sodium 40 mg DAILY@0600 PO 11/05/24 06:00 11/05/24 05:09 40 MG Diagnostic Test (Pha) 1 strip ACHS 11/04/24 07:00 11/05/24 12:02 1 STRIP Insulin Human Regular ACHS SC 11/04/24 07:00 11/05/24 12:15 6 UNITS Dextrose 50 ml UD PRN IV 11/04/24 01:30 Furosemide 20 mg BIDD IV 11/04/24 18:00 11/05/24 05:09 20 MG Ceftriaxone Sodium 50 ml @ 100 mls/hr DAILY@09 IV 11/05/24 09:00 11/05/24 09:30 100 MLS/HR Flecainide Acetate 50 mg Q12HR PO 11/05/24 22:00 Metoprolol Succinate 25 mg DAILY PO 11/06/24 10:00 Apixaban 5 mg BID PO 11/05/24 22:00 Laboratory Results Laboratory Tests 11/04/24 10:49 Urinalysis Test 11/03/24 19:00 Urine Color Light-yellow (Yellow) Urine Clarity Clear (Clear) Urine pH 7.5 (5.0-9.0) Urine Specific [place] 1.015 (1.001-1.035) Urine Protein 2+ (Negative) H Urine Ketones Negative (Negative) Urine Blood 1+ /uL (Negative) H Urine Nitrite Negative (Negative) Urine Bilirubin Negative (Negative) Urine Urobilinogen Normal mg/dL (Negative) Urine Leukocyte Esterase Negative /uL (Negative) Urine RBC 14 /hpf (0 - 4) Urine Microscopic WBC 4 /HPF (0-5) Urine Squamous Epithelial Cells Mod /hpf (<5) Urine Bacteria Few /hpf (None Seen) H Urine Hyaline Casts Few /lpf (0 - 2) Urine Mucus Few (None Seen) Urine Glucose Trace mg/dL (Normal) Microbiology Microbiology Date/Time Source Procedure Growth Status 11/04/24 00:55 Toe Gram Stain - Final Resulted 11/04/24 00:55 Toe Wound Culture - Preliminary Resulted 11/03/24 23:55 Blood Blood Culture - Preliminary NO GROWTH AFTER 24 HOURS OF INCUBATION. Resulted Assessment/Plan Assessment/Plan Acute coronary syndrome NSTEMI Rule out coronary artery disease Left foot 5th digit osteomyelitis Type 2 diabetes Hypertension Mixed hyperlipidemia Pulmonary edema rule out heart failure History of nawsr-[id number]-zhgu amputation of the right lower extremity PAD Plan Aspirin Lipitor Nitroglycerin as needed IV Lasix Echocardiogram Cardiology consult Stress test in progress today Start IV antibiotics empirically for the left 5th digit of the left foot for possible osteomyelitis, Rocephin and vancomycin Podiatry consult Full code Advance directives discussed for 20 minutes Discussed with the daughter at the bedside 11/05/24: Afib: Start Eliquis Chest pain: Negative workup Normal EF Antibiotics for toe infection Plan discussed with: Patient, Daughter My Orders Orders - KRIS GONZALEZ MD Procedure Category Date Status Time Cleanse Wound With LORAINE 11/04/24 In Process Wound Clean 14:07 Podiatry Consult CONS 11/04/24 Transmitted 14:07 * Dietary Consult CONS 11/04/24 Transmitted 14:07 Date of Service: November 05, 2024 Billing Provider: KRIS GONZALEZ MD Common Visit Codes: [id number] INP/OBS CARE(HIGH) KRIS GONZALEZ MD November 05, 2024 15:18
[2024-11-05] MEDS: APIXABAN 5 MG TAB PO SCH (21:50)
[2024-11-05] MEDS: FLECAINIDE ACETATE 50 MG TAB PO SCH (21:51)
[2024-11-05] MEDS ORDERED: ENOXAPARIN SOD 80 MG/0.8ML SYRINGE SC SCH (22:00)
[2024-11-06 01:00] VITALS: BP 144/64; PULSE 83; RESP 17; TEMP 97.8; O2SAT 95
[2024-11-06 05:00] VITALS: BP 132/54; PULSE 78; RESP 17; TEMP 98; O2SAT 96
[2024-11-06 08:00] VITALS: PULSE 80
[2024-11-06] MEDS: METOPROLOL SUCCINATE XL 50 MG TAB PO SCH (08:58)
[2024-11-06 09:00] VITALS: BP 134/63; PULSE 84; RESP 18; TEMP 97.8; O2SAT 95
[2024-11-06] MEDS ORDERED: ATOR-507 PO (10:05)
[2024-11-06] MEDS ORDERED: FLE50T PO (10:05)
[2024-11-06] MEDS ORDERED: APIX5TAB PO (10:05)
[2024-11-06] MEDS ORDERED: DOXY1CAP57 PO (10:05)
--- NOTE | 2024-11-06 10:08 | DVHDS2 ---
Discharge Summary Date of Admission November 03, 2024 at 22:58 Date of Discharge: November 06, 2024 Labs/Diagnostic Data: Laboratory Results Test 11/06/24 05:50 11/04/24 10:49 11/04/24 00:55 11/03/24 21:30 POC Glucose 135 mg/dl (70-106) White Blood Count 5.7 10^3/uL (4.4-10.8) Red Blood Count 4.32 10^6/uL (4.0-5.20) Hemoglobin 11.7 g/dL (12.2-16.2) Hematocrit 34.9 % (36.0-46.0) Mean Corpuscular Volume 80.7 fL (80.0-100.0) Mean Corpuscular Hemoglobin 27.0 pg (28.0-32.0) Mean Corpuscular Hemoglobin Concent 33.4 g/dL (32.0-36.0) Red Cell Distribution Width 14.8 % (11.8-14.3) Platelet Count 370 10^3/uL (140-450) Mean Platelet Volume 8.0 fL (6.9-10.8) Neutrophils (%) (Auto) 66.8 % (37.0-80.0) Lymphocytes (%) (Auto) 25.2 % (10.0-50.0) Monocytes (%) (Auto) 7.2 % (0.0-12.0) Eosinophils (%) (Auto) 0.3 % (0.0-7.0) Basophils (%) (Auto) 0.5 % (0.0-2.0) Neutrophils # (Auto) 3.8 10 ^3/uL (1.6-8.6) Lymphocytes # (Auto) 1.4 10 ^3/uL (0.4-5.4) Monocytes # (Auto) 0.4 10 ^3/uL (0-1.3) Eosinophils # (Auto) 0 10 ^3/uL (0-0.8) Basophils # (Auto) 0 10 ^3/uL (0-0.2) Nucleated Red Blood Cells 0.0 % Sodium Level 141 mmol/L (136-145) Potassium Level 4.6 mmol/L (3.5-5.1) Chloride Level 106 mmol/L (98-107) Carbon Dioxide Level 27 mmol/L (20-31) Anion Gap 8 (5-15) Blood Urea Nitrogen 19 mg/dL (9-23) Creatinine 0.93 mg/dL (0.550-1.02) Glomerular Filtration Rate Calc 65 mL/min (>90) BUN/Creatinine Ratio 20.4 (10.0-20.0) Serum Glucose 144 mg/dL (74-106) Hemoglobin A1c 7.1 % A1C (<5.7) Calcium Level 9.6 mg/dL (8.7-10.4) Magnesium Level 1.9 mg/dL (1.6-2.6) Total Bilirubin 0.6 mg/dL (0.2-1.0) Aspartate Amino Transferase (AST) 12 U/L (13-40) Alanine Aminotransferase (ALT) 11 U/L (7-40) Alkaline Phosphatase 55 U/L (46-116) Troponin I High Sensitivity 140 ng/L (</=34) Total Protein 7.7 g/dL (5.7-8.2) Albumin 4.1 g/dL (3.2-4.8) Triglycerides Level 91 mg/dL (< 150) Cholesterol Level 108 mg/dL (< 200) LDL Cholesterol 56 mg/dL (< 100) HDL Cholesterol 34 mg/dL (40-59) Hepatitis B Surface Antibody Negative (Negative) Hepatitis C Antibody Negative (Negative) Influenza Type A Antigen Negative (Negative) Influenza Type B Antigen Negative (Negative) SARS-CoV-2 Antigen (Rapid) Negative (NEGATIVE) Thyroid Stimulating Hormone (TSH) 1.04 uIU/mL (0.55-4.78) Test 11/03/24 19:00 11/03/24 18:26 Urine Color Light-yellow (Yellow) Urine Clarity Clear (Clear) Urine pH 7.5 (5.0-9.0) Urine Specific [place] 1.015 (1.001-1.035) Urine Protein 2+ (Negative) Urine Ketones Negative (Negative) Urine Blood 1+ /uL (Negative) Urine Nitrite Negative (Negative) Urine Bilirubin Negative (Negative) Urine Urobilinogen Normal mg/dL (Negative) Urine Leukocyte Esterase Negative /uL (Negative) Urine RBC 14 /hpf (0 - 4) Urine Microscopic WBC 4 /HPF (0-5) Urine Squamous Epithelial Cells Mod /hpf (<5) Urine Bacteria Few /hpf (None Seen) Urine Hyaline Casts Few /lpf (0 - 2) Urine Mucus Few (None Seen) Urine Glucose Trace mg/dL (Normal) Urine Opiates Screen Neg (NEGATIVE) Urine Fentanyl Screen Pos (NEGATIVE) Urine Barbiturates Screen Neg (NEGATIVE) Urine Phencyclidine Screen Neg (NEGATIVE) Urine Amphetamines Screen Neg (NEGATIVE) Urine Benzodiazepines Screen Neg (NEGATIVE) Urine Cocaine Screen Neg (NEGATIVE) Urine Cannabinoids Screen Neg (NEGATIVE) D-Dimer, Quantitative 1.33 mg/L FEU (0.0-0.49) B-Type Natriuretic Peptide 77.88 pg/mL (0-100) Other Laboratory Tests 11/04/24 10:49 Brief Hx & Hospital Course: Final diagnoses: NSTEMI Disease ruled out with a normal stress test Paroxysmal atrial fibrillation Left foot 5th digit osteomyelitis Type 2 diabetes Hypertension Mixed hyperlipidemia Pulmonary edema rule out heart failure History of [id number]-seb-[id number] amputation of the right lower extremity PAD 74-year-old female who was admitted for chest pain and shortness of breaths Troponins were slightly elevated and therefore cardiology recommended a stress test which was no ischemia She was going in and out of atrial fibrillation and therefore she was started on metoprolol initially but then she was switched to flecainide She was also given anticoagulation She had infection in her left foot 5th digit which showed osteomyelitis, podiatry recommended oral antibiotics and no surgery at this time Arterial Doppler showed mild peripheral vascular disease Overall now she is doing better, she is asymptomatic, cardiology recommended outpatient follow up She will be discharged home on Eliquis and flecainide for the atrial fibrillation Doxycycline for 14 days for the osteomyelitis of the left foot 5th digit Follow up with the primary care physician as soon as possible Lipitor 40 mg daily Condition at Discharge: Stable Final Diagnosis/Problems List NSTEMI Disease ruled out with a normal stress test Paroxysmal atrial fibrillation Left foot 5th digit osteomyelitis Type 2 diabetes Hypertension Mixed hyperlipidemia Pulmonary edema rule out heart failure History of [id number]-[id number]-bddy amputation of the right lower extremity PAD Discharge Disposition: Home SNF Discharge Will this Physician continue t: No Discharge Statement: "Patient was advised to return to the ER or call 911 if any headaches, dizziness, shortness of breath, chest pain, abdominal pain, bleeding, fevers, or worsening of medical condition. Patient was counseled about treatment plan, medications, possible side effects, patientverbalized understanding. All questions were answered to the best of my ability. This discharge took greater then 30 minutes in planning, reviewing documentation, counseling the patient, and discussing with other team members." ASSESSMENT ASSESSMENT Assessment Date of Service: November 06, 2024 Billing Provider: KRIS GONZALEZ MD Common Visit Codes: [id number] DISCH DAY >30min KRIS GONZALEZ MD November 06, 2024 10:08
[2024-11-06 11:12] VITALS: BP 134/63; PULSE 84; RESP 18; TEMP 97.8; O2SAT 95
--- NOTE | 2024-11-07 11:20 | ECG ---
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
--- NOTE | 2024-11-08 10:14 | DVHSR ---
APPROVED REPORT Exam: Nuclear Stress Test Indication: Chest pain BMI: 0 Medical History Medical History: HTN, Diabetes Allergies: No known drug allergies Stress Test Details Stress Test: Pharmacologic stress testing performed using 0.4 mg of regadenoson per 5 mL given IV ov er 10 seconds. HR Resting HR: 86 bpmMax Heart Rate (APMHR): 146.502665 bpm Max HR Achieved: 110 bpmTarget HR (85% APMHR): 124.901830 bpm % of APMHR: 75.34 Recovery HR: 90 bpm BP Resting BP: 144/66 mmHg Recovery BP: 111/45 mmHg ECG Resting ECG: Sinus Rhythm Clinical Reason for Termination: Completed protocol Nurse Comments Recieved pt. from [facility]. A/Ox4 on RA. Connected to senior engineering team leader, VS stable. PIV flushes well. Reviewed POC. Pt. verbalized understanding of procedure including risks and side ef fects, agrees for stress testing. Lexiscan stress test performed per protocol. Caarbon administered Cardiolite. Pt. tolerated well . Pt. stable, no change on exam. VS returned to baseline. Transferred to [facility] via wheelchair w/ te ch. Stress ECG Conclusion lvef 70% no severe stress induced ischemia noted NM EXAM: Myocardial Perfusion REST/STRESS Imaging Protocol: Rest Tc-99m/Stress Tc-99m 1 day Resting Data Rest SPECT myocardial perfusion imaging was performed in supine position 40 minutes following the int ravenous injection of 11.5 mCi of Tc-99m Sestamibi. Time of rest injection: 11:10 Time of rest imagin:50 Administration Route: IV Administration Site: Left AC Pharmacologic Stress Pharmacologic stress test was performed by injecting Regadenoson 0.4 mg IV push followed by the intra venous injection of 31.2 mCi of Tc-99m Sestamibi. Time of stress injection: 12:30 Time of stress imagin Administration Route: IV Administration Site: Left AC Gated Stress SPECT was performed 150 minutes after stress injection. The images were gated to evaluate regional wall motion and calculate left ventricular ejection fracti on. Nuclear Conclusion Nuclear Findings: negative for ischemia lvef 70% no severe stress induced ischemia noted
== END 2024-11-06 11:50 | disposition home or self-care (01) | DRG 281 ==
LOC: ER 17:48 → EDBD 17:48 → OVERFLOW 22:58 → TELE-WESTW 11-04 03:07 → TELE-CENTR 11-04 22:05
PROVIDERS: ADMIT Internal Medicine Geriatric Medicine; ATTEND Internal Medicine Geriatric Medicine
DX: I21.4 Non-ST elevation (NSTEMI) myocardial infarction (principal); J81.1 Chronic pulmonary edema; M86.8X7 Other osteomyelitis, ankle and foot; E78.2 Mixed hyperlipidemia; E11.69 Type 2 diabetes mellitus with other specified complication; E11.621 Type 2 diabetes mellitus with foot ulcer; E83.42 Hypomagnesemia; L97.529 Non-pressure chronic ulcer of other part of left foot with unspecified severity; I48.0 Paroxysmal atrial fibrillation; I10 Essential (primary) hypertension; L03.032 Cellulitis of left toe; Z79.4 Long term (current) use of insulin; Z79.899 Other long term (current) drug therapy; Z89.511 Acquired absence of right leg below knee
CPT/HCPCS: 36415; 71045; 71275; 73700; 78452; 80048; 80053; 80061; 80307; 81001; 82962; 83036; 83735; 83880; 84443; 84484; 85025; 85379; 86706; 86803; 87040; 87077; 87186; 87205; 87426; 87804; 93005; 93017; 93306; 93926; 93971; 94640; 96365; 96372; G0378; J0696; J1815

== ENCOUNTER 2024-11-09 18:50 | Inpatient (IN) | payer MEDICARE, MEDICAID ==
[~2024-11-09] VITALS: Ht 165.1 cm; Wt 77.2 kg
[~2024-11-09 18:50] MED LIST changes: +APIX5TAB PO; +ATOR-507 PO; -CEFU250T68 PO; +DOXY1CAP57 PO; +FLE50T PO; -LEVO500T91 PO; -PRAV20TA3 PO
--- NOTE | 2024-11-09 19:11 | ED.PDOC ---
HPI Comments 74-year-old female with a history of recently diagnosed atrial fibrillation paroxysmal diagnosed about a week ago and she was admitted to the hospital last week now complains of dull substernal chest pain for the last 4 hours. Unprovoked. Moderate in severity and associated with some dyspnea on exertion and palpitations and sensation of rapid heart rate. EMS noted some paroxysmal atrial fibrillation on the way to the hospital Time Seen by MD: 18:51 Allergies: Coded Allergies: NO KNOWN ALLERGIES (Unverified , 11/03/24) Home Meds Active Scripts Doxycycline Monohydrate (Doxycycline Monohydrate) 100 Mg Cap, 1 CAP PO BID, #28 CAP Prov:KRIS GONZALEZ MD 11/06/24 Flecainide Acetate (TAMBOCOR TABLET) 50 Mg Tb, 50 MG PO Q12HR for 30 Days, #60 TAB 3 Refills Prov:KRIS GONZALEZ MD 11/06/24 Atorvastatin Calcium (Lipitor) 40 Mg Tab, 1 TAB PO QPM, #90 TAB 3 Refills Prov:KRIS GONZALEZ MD 11/06/24 Apixaban Base (ELIQUIS) 5 Mg Tab, 5 MG PO BID for 30 Days, #60 TAB 3 Refills Prov:KRIS GONZALEZ MD 11/06/24 Reported Medications Losartan Potassium (Losartan Potassium) 50 Mg Tab, 1 TAB PO DAILY for 90 Days, #90 11/04/24 Metformin Hydrochloride (Metformin Hcl) 1,000 Mg Tab, 1 TAB PO BIDWM for 90 Days, #180 11/04/24 Insulin Glargine (Basaglar Kwikpen) 100 Unit/Ml Inj, 32 UNIT SC QAM for 28 Days, #9 11/04/24 Pioglitazone Hydrochloride (PIOGLITAZONE HCL) 15 Mg Tab, 1 TAB PO DAILY for 30 Days, #30 11/04/24 Omeprazole (Omeprazole Dr) 20 Mg Cap, 1 CAP PO QAM for 90 Days, #90 11/04/24 Sitagliptin Phosphate (Januvia) 50 Mg Tab, 1 TAB PO DAILY for 30 Days, #30 11/04/24 Discontinued Reported Medications Levofloxacin Hemihydrate (LEVAQUIN 500 MG) 500 Mg Tab, 1 TAB PO DAILY for 10 Days, #10 11/04/24 Cefuroxime Axetil (Cefuroxime Axetil) 250 Mg Tab, 2 TAB PO BID for 2 Days, #10 5/8/25 Pravastatin Sodium (PRAVACHOL TABLET) 20 Mg Tb, 40 MG PO DAILY for 90 Days, #90 11/04/24 Information Source: Patient, Relative, Emergency Med Personnel Mode of Arrival: EMS Severity: Moderate Timing: Hours Duration: Since onset Prehospital treatment: 12 Lead EKG Quality: Other Onset: At Rest Past Medical History PAST MEDICAL HISTORY: DM, HTN Surgical History: AKA, Denies all surgeries GEAR FINISHER History: No Pertinent GEAR FINISHER History Constitutional: reports: fatigue, malaise Cardiovascular: reports: chest pain, Dyspnea on exertion, palpitations All Other Systems: Reviewed and Negative Physical Exam General Appearance: Moderate Distress, Obese HEENT: Normal ENT Inspection, Pharynx Normal, TMs Normal Neck: Full Range of Motion, Non-Tender, Normal, Normal Inspection Respiratory: Respiratory Distress Cardiovascular: No Edema, No JVD, No Murmur, No Gallop, Normal Peripheral Pulses, Regular Rate/Rhythm Breast Exam: Deferred Gastrointestinal: No Organomegaly, Non Tender, No Pulsatile Mass, Normal Bowel Sounds, Soft Genitalia: Deferred Pelvic: Deferred Rectal: Deferred Extremities: Other (Right [id number] amputation with a prosthesis) Musculoskeletal : Apperance: Normal Neurologic: Alert, resource development manager II-XII nml as Tested, No Motor Deficits, Normal Affect, Normal Mood, No Sensory Deficits Cerebellar Function: Normal Reflexes: Normal Skin: Dry, Normal Color, Warm Lymphatic: No Adenopathy Was a procedure done? Was a procedure done?: No CP Differential Dx Differential Diagnosis: A-fib, A-Flutter, Angina, Heart Failure, OK, PAC's, Pulmonary Embolus, PVC's, V-Fib, V-Tach, Other X-Ray, Labs, Meds, VS Vital Signs Date Time Temp Pulse Resp B/P (MAP) Pulse Ox O2 Delivery O2 Flow Rate FiO2 11/09/24 19:35 99.0 109 24 130/79 (96) 97 99.0 11/09/24 18:58 93 Lab Test 11/09/24 18:55 Range/Units White Blood Count 6.3 4.4-10.8 10^3/uL Red Blood Count 4.63 4.0-5.20 10^6/uL Hemoglobin 12.8 12.2-16.2 g/dL Hematocrit 36.9 36.0-46.0 % Mean Corpuscular Volume 79.8 L 80.0-100.0 fL Mean Corpuscular Hemoglobin 27.8 L 28.0-32.0 pg Mean Corpuscular Hemoglobin Concent 34.8 32.0-36.0 g/dL Red Cell Distribution Width 14.6 H 11.8-14.3 % Platelet Count 365 140-450 10^3/uL Mean Platelet Volume 8.2 6.9-10.8 fL Neutrophils (%) (Auto) 62.3 37.0-80.0 % Lymphocytes (%) (Auto) 30.2 10.0-50.0 % Monocytes (%) (Auto) 6.2 0.0-12.0 % Eosinophils (%) (Auto) 0.7 0.0-7.0 % Basophils (%) (Auto) 0.6 0.0-2.0 % Neutrophils # (Auto) 3.9 1.6-8.6 10 ^3/uL Lymphocytes # (Auto) 1.9 0.4-5.4 10 ^3/uL Monocytes # (Auto) 0.4 0-1.3 10 ^3/uL Eosinophils # (Auto) 0 0-0.8 10 ^3/uL Basophils # (Auto) 0 0-0.2 10 ^3/uL Nucleated Red Blood Cells 0.1 % Prothrombin Time 11.2 9.3-11.8 sec Prothrombin Time INR 1.06 0.9-1.15 Activated Partial Thromboplast Time 26.8 24.5-34.5 SEC Sodium Level 137 136-145 mmol/L Potassium Level 5.1 3.5-5.1 mmol/L Chloride Level 106 98-107 mmol/L Carbon Dioxide Level 23 20-31 mmol/L Anion Gap 8 5-15 Blood Urea Nitrogen 20 9-23 mg/dL Creatinine 0.93 0.550-1.02 mg/dL Glomerular Filtration Rate Calc 65 >90 mL/min BUN/Creatinine Ratio 21.5 H 10.0-20.0 Serum Glucose 277 H 74-106 mg/dL Calcium Level 9.8 8.7-10.4 mg/dL Total Bilirubin 0.5 0.2-1.0 mg/dL Aspartate Amino Transferase (AST) 11 L 13-40 U/L Alanine Aminotransferase (ALT) 19 7-40 U/L Alkaline Phosphatase 67 46-116 U/L Troponin I High Sensitivity 60 *H </=34 ng/L Total Protein 7.6 5.7-8.2 g/dL Albumin 4.1 3.2-4.8 g/dL Time of 1ST Reevaluation: 19:10 Reevaluation 1ST: Unchanged Patient Education/Counseling: Diagnosis, Treatment Family Education/Counseling: Diagnosis, Treatment Departure 1 Departure Time of Disposition: 20:53 Impression: Primary Impression: ACS (acute coronary syndrome) Additional Impressions: Paroxysmal atrial fibrillation Hyperglycemia due to type 2 diabetes mellitus Disposition: 09 ADMITTED INPATIENT Admit to: Tele Condition: Guarded Discharged With: Self, Relative Comments Chest Pain with Elevated Troponin Chief Complaint: Substernal chest pain History of Present Illness: 74-year-old female with history of poorly controlled type 2 diabetes and paroxysmal atrial fibrillation presents via EMS with four hours of unprovoked substernal chest pain. The pain is described as dull and moderate in severity. Patient was given aspirin prior to arrival. 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 Review of Systems: Limited by acute presentation Cardiovascular: Positive for chest pain Respiratory: No acute complaints Constitutional: No fever or chills reported Medications: Unable to obtain complete medication list at time of evaluation Allergies: No known allergies documented Past Medical History: 1. Type 2 Diabetes Mellitus, poorly controlled 2. Paroxysmal Atrial Fibrillation 3. Congestive Heart Failure Vital Signs: Sinus tachycardia noted on EKG, other vital signs not documented Physical Exam: Limited physical exam documentation available Lab Results: Troponin: 60 (Elevated) Blood Glucose: 277 mg/dL Potassium: 5.1 mEq/L Anion Gap: 8 (Normal) Imaging and Other Relevant Results: Chest X-ray: Pulmonary vascular congestion consistent with mild CHF EKG: Sinus tachycardia, no evidence of atrial fibrillation or ST elevation Medical Decision Making: Summary Statement: 74-year-old female with multiple cardiac risk factors presenting with chest pain, elevated troponin, and hyperglycemia Problem List: 1. Acute Coronary Syndrome 2. Hyperglycemia 3. Chronic CHF with mild exacerbation Differential Diagnosis: Acute coronary syndrome, unstable angina, NSTEMI, CHF exacerbation, diabetic cardiomyopathy ED Course: Patient received aspirin prior to arrival. Insulin was administered for hyperglycemia. Cardiac workup revealed elevated troponin and CXR showing mild pulmonary vascular congestion. Assessment and Plan: 1. Acute Coronary Syndrome: - Admit to cardiology service - Continue cardiac monitoring - Serial troponins and EKGs 2. Hyperglycemia: - Initiated insulin therapy - Blood glucose monitoring 3. CHF: - Monitor fluid status - Continue current management Billing Information: ICD-10: R07.2 - Precordial chest pain ICD-10: I21.9 - Acute myocardial infarction, unspecified ICD-10: E11.65 - Type 2 diabetes mellitus with hyperglycemia ICD-10: I50.9 - Heart failure, unspecified Critical Care Note Critical Care Time?: Yes (35 min-critical care time only) Critical care comment: Total critical care time: Approximately 36 minutes Due to a high probability of clinically significant, life threatening deteri oration, the patient required my highest level of preparedness to intervene emergently and I personally spent this critical care time directly and personally managing the patient. This critical care time included obtaining a history; examining the patient; pulse oximetry; ordering and review of studies; arranging urgent treatment with development of a management plan; evaluation of patient's response to treatment; frequent reassessment; and, discussions with other providers. This critical care time was performed to assess and manage the high probability of imminent, life-threatening deterioration that could result in multi-organ adnny lure. It was exclusive of separately billable procedures and treating other patients. Stability Stability form required: No Heart Score Heart Score: Heart Score Response (Comments) Value History Moderate Suspicious 1 EKG Repolarization Disturb 1 Age >65 2 Risk Factors >3 or Hx ASHD 2 Troponin 1-2 x's Normal limit 1 Total 7 NEGRA HASTINGS MD November 09, 2024 19:11
[2024-11-09] MEDS: ASPirin-EC 81 mg tab PO ONE (19:15)
[2024-11-09] MEDS: MORPHINE SULFATE 4 MG/ML SYR/VIAL IV ONE (19:15)
[2024-11-09] MEDS: ONDANSETRON HCL 4 MG/2 ML VIAL IV ONE (19:15)
[2024-11-09 19:20] LABS: Basophils # (auto) 0 10 ^3/uL (0-0.2); Basophils % (auto) 0.6 % (0.0-2.0); Eosinophils # (auto) 0 10 ^3/uL (0-0.8); Eosinophils % (auto) 0.7 % (0.0-7.0); Hematocrit 36.9 % (36.0-46.0); Hemoglobin 12.8 g/dL (12.2-16.2); Lymphocytes # (auto) 1.9 10 ^3/uL (0.4-5.4); Lymphocytes % (auto) 30.2 % (10.0-50.0); Mean Corpuscular Hemoglobin 27.8 pg (28.0-32.0); Mean Corpuscular Hgb Conc. 34.8 g/dL (32.0-36.0); Mean Corpuscular Volume 79.8 fL (80.0-100.0); Monocytes # (auto) 0.4 10 ^3/uL (0-1.3); Monocytes % (auto) 6.2 % (0.0-12.0); Neutrophils # (auto) 3.9 10 ^3/uL (1.6-8.6); Neutrophils % (auto) 62.3 % (37.0-80.0); Nucleated Red Blood Cells % 0.1 %; Platelet Count (auto) 365 10^3/uL (140-450); Red Blood Cells 4.63 10^6/uL (4.0-5.20); Red Cell Distribution Width 14.6 % (11.8-14.3); White Blood Cell 6.3 10^3/uL (4.4-10.8)
[2024-11-09 19:31] LABS: INR 1.06 (0.9-1.15); Partial Thromboplastin Time 26.8 SEC (24.5-34.5); Prothrombin Time 11.2 sec (9.3-11.8)
--- NOTE | 2024-11-09 19:33 | DVH ---
CHEST RADIOGRAPH Indication: chest pain Technique: Single frontal view of the chest was obtained Comparison: XY CHEST PORTABLE on DOS: 11/03/24 FINDINGS: Lines and Tubes: None Lungs: Bilateral perihilar infiltrates with pulmonary vascular congestion. Pleura: No effusion. No pneumothorax. Cardiomediastinal contours: Unremarkable Bones: No acute osseous abnormality. IMPRESSION: 1. Bilateral perihilar infiltrates with mild pulmonary vascular congestion. Findings may represent pn eumonia or congestive failure. Ladder is less likely since the cardiac size is not appear unusually e nlarged.
[2024-11-09 19:55] LABS: Alanine Aminotransferase 19 U/L (7-40); Albumin 4.1 g/dL (3.2-4.8); Alkaline Phosphatase 67 U/L (46-116); Anion Gap 8 (5-15); BUN/Creatinine Ratio 21.5 (10.0-20.0); Bilirubin, Total 0.5 mg/dL (0.2-1.0); Blood Urea Nitrogen 20 mg/dL (9-23); Calcium 9.8 mg/dL (8.7-10.4); Carbon Dioxide 23 mmol/L (20-31); Chloride 106 mmol/L (98-107); Sodium 137 mmol/L (136-145); Total Protein 7.6 g/dL (5.7-8.2)
[2024-11-09 20:02] LABS: Aspartate Aminotransferase 11 U/L (13-40); Glucose 277 mg/dL (74-106); Potassium 5.1 mmol/L (3.5-5.1)
[2024-11-09] MEDS ORDERED: NITROGLYCERIN 0.4 MG SL TAB SL PRN (21:45)
[2024-11-09] MEDS ORDERED: MORPHINE SULFATE INJ 2 MG/ml SYRG IV PRN (21:45)
[2024-11-09] MEDS ORDERED: ONDANSETRON HCL 4 MG/2 ML VIAL IV PRN (21:45)
[2024-11-09] MEDS ORDERED: ACETAMINOPHEN 325 MG TAB PO PRN (21:45)
[2024-11-09] MEDS ORDERED: DEXTROSE (50%) 50ML SYRG IV PRN (21:45)
[2024-11-09] MEDS: InsuLIN REG 1unit/0.01ml Soln (100units/ml) IV ONE (22:29)
[2024-11-09 22:30] VITALS: PULSE 102; O2SAT 96
[2024-11-09] MEDS: APIXABAN 5 MG TAB PO SCH (22:30)
[2024-11-09] MEDS: ATORVASTATIN 20 MG TAB PO SCH (22:30)
[2024-11-10] VITALS (8 sets, daily range): BP systolic 93–154; BP diastolic 30–67; PULSE 73–113; RESP 18–20; TEMP 97.5–98.6; O2SAT 94–100
[2024-11-10] MEDS: ACCU-CHEK COMFORT CURVE STRIP VI SCH (02:28)
[2024-11-10] MEDS: InsuLIN REG 1unit/0.01ml Soln (100units/ml) SC SCH (02:28)
--- NOTE | 2024-11-10 05:19 | DVHHP2 ---
History of Present Illness Reason for Visit: Palpitations History of Present Illness 74-year-old female presents for evaluation of palpitations. Patient was recently admitted diagnosed with AFib last week. Today while at home patient developed palpitations was again with associated substernal chest pain in mild shortness for breath. Currently she denies any symptoms. Past Medical History AFib, hypertension, diabetes mellitus Past Surgical History BKA Family History Noncontributory Smoke: No ALCOHOL: none Drugs: None Lives: with Family Review of Systems Review of Systems Review of systems are currently negative otherwise addressed in HPI. Allergies: Coded Allergies: NO KNOWN ALLERGIES (Unverified , 11/03/24) Medications Current Medications Medications Dose Ordered Sig/Sherice Route Start Time Stop Time Status Last Admin Dose Admin Aspirin 162 mg DAILY PO 11/10/24 10:00 Atorvastatin Calcium 40 mg HS PO 11/09/24 22:00 11/09/24 22:30 40 MG Apixaban 5 mg BID PO 11/09/24 22:00 11/09/24 22:30 5 MG Losartan Potassium 50 mg DAILY PO 11/10/24 10:00 Diagnostic Test (Pha) 1 strip Q6HR 11/10/24 00:00 11/10/24 02:28 1 STRIP Insulin Human Regular Q6HR SC 11/10/24 00:00 11/10/24 02:28 3 UNITS Dextrose 50 ml UD PRN IV 11/09/24 21:45 Ondansetron HCl 4 mg Q4HP PRN IV 11/09/24 21:45 Acetaminophen 650 mg Q6HP PRN PO 11/09/24 21:45 Nitroglycerin 0.4 mg Q5MINP PRN SL 11/09/24 21:45 Morphine Sulfate 2 mg Q30M PRN IV 11/09/24 21:45 Exam Vital Signs Vital Signs Date Time Temp Pulse Resp B/P (MAP) Pulse Ox O2 Delivery O2 Flow Rate FiO2 11/10/24 00:46 97.9 77 20 154/63 (93) 94 97.9 11/10/24 00:46 Room Air* 5 N/A Nasal Cannula* Exam Gen: 74-year-old female in no apparent distress Skin: Warm, dry, normal color and texture, no rash. HEENT: Normocephalic atraumatic, mucous membranes moist and pink. Neck: Cervical and supraclavicular nodes normal without enlargement, trachea is midline, thyroid gland is normal without masses. Pulmonary: Clear to auscultation and percussion bilaterally. Cardiac: Regular rate and rhythm. No murmur Abdomen: Soft, nontender, nondistended, bowel sounds present all 4 quadrants, no guarding, no rigidity, no organomegaly. Extremities: No cyanosis, clubbing, no edema Neuro: Cranial nerves II through XII grossly intact, normal affect and speech, no focal motor deficits. Labs/Xrays ORDERING PHYSICIAN: TABITHA DANIELS RESIDENT PROCEDURE(s): ECIDC - ECHO 2D MODE CARDIAC DOP REASON: SOB ORDER NUMBER(s): [id number], ACCESSION NUMBER(s): [id number] APPROVED REPORT EXAM: Two-dimensional and M-mode echocardiogram with Doppler and color Doppler. Blood Pressure: 144/63 mmHg INDICATION SOB RISK FACTORS Height: 144, Weight: 175 DIMENSIONS LVDd 3.9 (3.8-5.7cm) LA (2D) 4.5 (1.9-4.0cm) Aortic Root 3.6 (2.0- 3.7cm) LVDs 2.3 (2.5-4.0cm) LA (MM) (1.9-4.0cm) Aortic Cusp Exc 1.6 (1.5- 2.0cm) EF (%) 60.0 (55-70%) Rt. Atrium 3.3 (1.9-4.0cm) Asc. Aorta 3.4 cm IVSd 1.2 (0.7-1.1cm) RV (D) (1.8-2.4cm) PWd 1.2 (0.7-1.1cm) Mitral Valve Mitral Mitral Stenosis E wave 1.29m/s MV Mean GR. 5mmHg A wave 1.57m/s MV Peak GR. 111mmHg E/A ratio 0.8 2D MVA cm2 DECEL Time 191ms PRESS 1/2 Time 50ms IVRT ms Dop MVA 4.38cm2 Aortic Valve Aortic Valve Aortic Stenosis V1 1.04m/s AO Mean GR. 5mmHg V2 1.43m/s AO Peak GR. 8mmHg LVOT Diameter 2.5 (1.8-2.4cm) Doppler EDER 3.57cm2 Pulmonic Valve V2 1.09m/s Other Information Quality : Technically Limited Rhythm : Technically limited study due to body habitus.patient position. Conclusion Technically good study. Sinus rhythm. Concentric LVH with left atrial enlargement. Valves are normal. EF of 60% with normal RV function. Doppler reveals opzs-ir-pajrhlsh mitral insufficiency. No pericardial effusion masses or vegetations. SIGNED BY: JOHN LANDA Sr., MD SIGNED DATE/TIME: 11/05/24 1158 CC: ORDERING PHYSICIAN: NEGRA HASTINGS MD PROCEDURE(s): CXRP - CHEST PORTABLE REASON: chest pain ORDER NUMBER(s): [id number], ACCESSION NUMBER(s): [id number] CHEST RADIOGRAPH Indication: chest pain Technique: Single frontal view of the chest was obtained Comparison: XY CHEST PORTABLE on DOS: 11/03/24 FINDINGS: Lines and Tubes: None Lungs: Bilateral perihilar infiltrates with pulmonary vascular congestion. Pleura: No effusion. No pneumothorax. Cardiomediastinal contours: Unremarkable Bones: No acute osseous abnormality. IMPRESSION: 1. Bilateral perihilar infiltrates with mild pulmonary vascular congestion. Findings may represent pneumonia or congestive failure. Ladder is less likely since the cardiac size is not appear unusually enlarged. Labs Test 11/10/24 02:17 11/10/24 00:23 11/09/24 18:55 Range/Units POC Glucose 179 H 70-106 mg/dl Troponin I High Sensitivity 71 *H </=34 ng/L White Blood Count 6.3 4.4-10.8 10^3/uL Red Blood Count 4.63 4.0-5.20 10^6/uL Hemoglobin 12.8 12.2-16.2 g/dL Hematocrit 36.9 36.0-46.0 % Mean Corpuscular Volume 79.8 L 80.0-100.0 fL Mean Corpuscular Hemoglobin 27.8 L 28.0-32.0 pg Mean Corpuscular Hemoglobin Concent 34.8 32.0-36.0 g/dL Red Cell Distribution Width 14.6 H 11.8-14.3 % Platelet Count 365 140-450 10^3/uL Mean Platelet Volume 8.2 6.9-10.8 fL Neutrophils (%) (Auto) 62.3 37.0-80.0 % Lymphocytes (%) (Auto) 30.2 10.0-50.0 % Monocytes (%) (Auto) 6.2 0.0-12.0 % Eosinophils (%) (Auto) 0.7 0.0-7.0 % Basophils (%) (Auto) 0.6 0.0-2.0 % Neutrophils # (Auto) 3.9 1.6-8.6 10 ^3/uL Lymphocytes # (Auto) 1.9 0.4-5.4 10 ^3/uL Monocytes # (Auto) 0.4 0-1.3 10 ^3/uL Eosinophils # (Auto) 0 0-0.8 10 ^3/uL Basophils # (Auto) 0 0-0.2 10 ^3/uL Nucleated Red Blood Cells 0.1 % Prothrombin Time 11.2 9.3-11.8 sec Prothrombin Time INR 1.06 0.9-1.15 Activated Partial Thromboplast Time 26.8 24.5-34.5 SEC Sodium Level 137 136-145 mmol/L Potassium Level 5.1 3.5-5.1 mmol/L Chloride Level 106 98-107 mmol/L Carbon Dioxide Level 23 20-31 mmol/L Anion Gap 8 5-15 Blood Urea Nitrogen 20 9-23 mg/dL Creatinine 0.93 0.550-1.02 mg/dL Glomerular Filtration Rate Calc 65 >90 mL/min BUN/Creatinine Ratio 21.5 H 10.0-20.0 Serum Glucose 277 H 74-106 mg/dL Calcium Level 9.8 8.7-10.4 mg/dL Total Bilirubin 0.5 0.2-1.0 mg/dL Aspartate Amino Transferase (AST) 11 L 13-40 U/L Alanine Aminotransferase (ALT) 19 7-40 U/L Alkaline Phosphatase 67 46-116 U/L B-Type Natriuretic Peptide 103.50 0-100 pg/mL Total Protein 7.6 5.7-8.2 g/dL Albumin 4.1 3.2-4.8 g/dL Assessment/Plan Assessment/Plan Assessment Chest pain rule out ACS Hypertension Diabetes mellitus Plan Admit the patient to telemetry to the hospitalist Resume home medications Med nebs Continue treatment per orders. Plan discussed with: Patient My Orders Orders - MARITZA FRANCOIS Procedure Category Date Status Time Aspirin Tablet PHA 11/10/24 In Process 10:00 Atorvastatin (Lipitor) PHA 11/09/24 In Process 22:00 Apixaban (Eliquis) PHA 11/09/24 In Process 22:00 Losartan Tablet PHA 11/10/24 In Process (Cozaar Tablet) 10:00 Basic Metabolic Panel LAB 11/10/24 Logged 04:00 Glucose Blood PHA 11/10/24 In Process (Accu-Chek Comfort 00:00 Insulin R (Human) PHA 11/10/24 In Process (Insulin R) 00:00 Dextrose 50% Syringe PHA 11/09/24 In Process 21:45 Admit ADMIT 11/09/24 Transmitted 21:37 Ondansetron Hcl PHA 11/09/24 In Process (Zofran) 21:45 Cardiac DIET 11/10/24 Transmitted Diet-2gna,Lofat,Lochol Breakfast Condition: Fair LORAINE 11/09/24 In Process 21:37 Acetaminophen Tablet PHA 11/09/24 In Process (Tylenol Tablet) 21:45 Bedrest With Bathroom LORAINE 11/09/24 In Process Privileg 21:37 Nitroglycerin PHA 11/09/24 In Process Sublingual (Ntrostat 21:45 Morphine Sulfate PHA 11/09/24 In Process Injection 21:45 Stat Ekg For Chest LORAINE 11/09/24 In Process Pain 21:37 Notify Md Of Changes LORAINE 11/09/24 In Process From Base 21:37 Flight Manager For LORAINE 11/09/24 In Process 24 Hours 21:37 Emergency Dysrhythmia LORAINE 11/09/24 In Process Protocol 21:37 Rhythm Strips Once LORAINE 11/09/24 In Process Every Shift 21:37 Oxygen By Nasal RT 11/09/24 Transmitted Cannula 21:37 Date of Service: November 09, 2024 Billing Provider: MARITZA FRANCOIS Common Visit Codes: [id number] INP/OBS CARE (HIGH) MARITZA FRANCOIS November 10, 2024 05:19
[2024-11-10] MEDS ORDERED: ALBUTEROL SULF 2.5 MG/0.5ML(0.5%) NEB SOLN NEB PRN (05:30)
[2024-11-10] MEDS ORDERED: GABA-1308 PO (05:58)
[2024-11-10] MEDS ORDERED: CHOLTAB14 PO (05:58)
[2024-11-10] MEDS: AZITHROMYCIN 500MG/ 250ML 250 ML IV ONE (06:44)
[2024-11-10 07:41] LABS: Potassium 4.5 mmol/L (3.5-5.1); Sodium 141 mmol/L (136-145)
[2024-11-10 07:42] LABS: Anion Gap 6 (5-15); Calcium 9.7 mg/dL (8.7-10.4); Carbon Dioxide 27 mmol/L (20-31)
[2024-11-10 07:47] LABS: Blood Urea Nitrogen 17 mg/dL (9-23); Glucose 93 mg/dL (74-106)
[2024-11-10 07:50] LABS: Chloride 108 mmol/L (98-107)
[2024-11-10] MEDS: ASPirin 81 mg TAB PO SCH (09:25)
[2024-11-10] MEDS: LOSARTAN POTASSIUM 50 MG TAB PO SCH (09:26)
[2024-11-10 12:40] LABS: Rapid Influenza A Negative (Negative); Rapid Influenza B Negative (Negative)
[2024-11-10 12:42] LABS: COVID19 ANTIGEN SOFIA FIA NEGATIVE (NEGATIVE)
--- NOTE | 2024-11-10 13:05 | DVHCONRES ---
Date Seen: November 10, 2024 Resident Creating Document: SARAH TSANG RESIDENT Referring Physician Dr Munguia Reason for Consultation Elevated troponin History of Present Illness 74-year-old female with past medical history of paroxysmal AFib, osteomyelitis, type 2 diabetes mellitus, hypertension, peripheral artery disease and past surgical history of below-knee amputation presented with complaints of shortness of breath and palpitations. She was admitted for similar symptoms last week where she was diagnosed with new onset atrial fibrillation and was discharged with flecainide and Eliquis. Patient has a nuclear stress test done last time patient did not reveal any evidence of ischemia. Patient mentioned that after returning to home she started having these symptoms again. She was seen and examined at bedside. She is mentioning improvement in her symptoms of palpitations but had shortness of breath that started today morning again and is currently on 2 L of oxygen through nasal cannula. She is denying any complaints of chest pain, cough, nausea and vomitting. Cardiology was consulted for elevated tropes. Past medical history paroxysmal AFib, osteomyelitis, type 2 diabetes mellitus, hypertension, peripheral artery disease past surgical history below-knee amputation Family history Not significant for any cardiac co-morbidities Social history Denied smoking, alcohol, marijuana or any other drug intake Family History: Patient reports no known family medical history. Allergies: Coded Allergies: NO KNOWN ALLERGIES (Unverified , 11/03/24) Home Meds Active Scripts Doxycycline Monohydrate (Doxycycline Monohydrate) 100 Mg Cap, 1 CAP PO BID, #28 CAP Prov:KRIS MUNGUIA MD 11/06/24 Flecainide Acetate (TAMBOCOR TABLET) 50 Mg Tb, 50 MG PO Q12HR for 30 Days, #60 TAB 3 Refills Prov:KRIS MUNGUIA MD 11/06/24 Atorvastatin Calcium (Lipitor) 40 Mg Tab, 1 TAB PO QPM, #90 TAB 3 Refills Prov:KRIS MUNGUIA MD 11/06/24 Apixaban Base (ELIQUIS) 5 Mg Tab, 5 MG PO BID for 30 Days, #60 TAB 3 Refills Prov:KRIS MUNGUIA MD 11/06/24 Reported Medications Gabapentin (Gabapentin) 100 Mg Cap, 1 CAP PO TID, #90 CAP 1 Refill 11/10/24 Cholecalciferol (D-1000 EXTRA STRENGTH) 1,000 Unit Tab, 1000 UNIT PO, TAB 11/10/24 Losartan Potassium (Losartan Potassium) 50 Mg Tab, 1 TAB PO DAILY for 90 Days, #90 11/04/24 Metformin Hydrochloride (Metformin Hcl) 1,000 Mg Tab, 1 TAB PO BIDWM for 90 Days, #180 11/04/24 Insulin Glargine (Basaglar Kwikpen) 100 Unit/Ml Inj, 32 UNIT SC QAM for 28 Days, #9 11/04/24 Pioglitazone Hydrochloride (PIOGLITAZONE HCL) 15 Mg Tab, 1 TAB PO DAILY for 30 Days, #30 11/04/24 Omeprazole (Omeprazole Dr) 20 Mg Cap, 1 CAP PO QAM for 90 Days, #90 11/04/24 Sitagliptin Phosphate (Januvia) 50 Mg Tab, 1 TAB PO DAILY for 30 Days, #30 11/04/24 Discontinued Reported Medications Levofloxacin Hemihydrate (LEVAQUIN 500 MG) 500 Mg Tab, 1 TAB PO DAILY for 10 Days, #10 11/04/24 Cefuroxime Axetil (Cefuroxime Axetil) 250 Mg Tab, 2 TAB PO BID for 2 Days, #10 11/04/24 Pravastatin Sodium (PRAVACHOL TABLET) 20 Mg Tb, 40 MG PO DAILY for 90 Days, #90 11/04/24 Current Medications Current Medications Medications (Trade) Dose Ordered Sig/Sherice Route PRN Reason Start Time Stop Time Status Last Admin Aspirin 162 mg DAILY PO 11/10/24 10:00 11/10/24 09:25 Atorvastatin Calcium (Lipitor) 40 mg HS PO 11/09/24 22:00 11/09/24 22:30 Apixaban (Eliquis) 5 mg BID PO 11/09/24 22:00 11/10/24 09:25 Losartan Potassium (Cozaar Tablet) 50 mg DAILY PO 11/10/24 10:00 11/10/24 09:26 Diagnostic Test (Pha) (Accu-Chek Comfort Curve T) 1 strip Q6HR 11/10/24 00:00 11/10/24 12:10 Insulin Human Regular (InsuLIN R) Q6HR SC 11/10/24 00:00 11/10/24 12:37 Dextrose 50 ml UD PRN IV Blood Sugar LESS THAN 60 11/09/24 21:45 Ondansetron HCl (Zofran) 4 mg Q4HP PRN IV NAUSEA / VOMITING 11/09/24 21:45 Acetaminophen (Tylenol Tablet) 650 mg Q6HP PRN PO PAIN SCALE 1-3 OR TEMP>100.4 11/09/24 21:45 Nitroglycerin (Ntrostat Sublingual) 0.4 mg Q5MINP PRN SL FOR CHEST PAIN 11/09/24 21:45 Morphine Sulfate 2 mg Q30M PRN IV FOR CHEST PAIN 11/09/24 21:45 Albuterol (Ventolin Medneb) 2.5 mg Q6HPRN PRN NEB SHORTNESS OF BREATH 11/10/24 05:30 Azithromycin 250 ml @ 125 mls/hr DAILY IV 11/11/24 10:00 Review of Systems as described in the HPI Vital Signs Vital Signs Date Time Temp Pulse Resp B/P (MAP) Pulse Ox O2 Delivery O2 Flow Rate FiO2 11/10/24 12:36 97.5 73 18 149/67 (94) 98 97.5 11/10/24 00:46 Room Air* 5 N/A Nasal Cannula* Physical Exam Examination General Appearance: Alert, Oriented X3, Cooperative, No acute distress HEENT: EOMI Respiratory: Clear to auscultation, Normal air movement Cardiovascular: Regular rate, Normal S1, Normal S2 Abdominal: Normal bowel sounds Extremities: Right BKA, no edema No cyanosis, No edema, Normal pulses, No tenderness/swelling Skin: No rashes, No breakdown Labs/Diagnostic Data Labs Test 11/10/24 12:04 11/10/24 11:50 11/10/24 08:38 11/10/24 06:36 Range/Units Influenza Type A Antigen Negative Negative Influenza Type B Antigen Negative Negative SARS-CoV-2 Antigen (Rapid) Negative NEGATIVE POC Glucose 174 H 70-106 mg/dl Troponin I High Sensitivity 65 *H </=34 ng/L Sodium Level 141 136-145 mmol/L Potassium Level 4.5 3.5-5.1 mmol/L Chloride Level 108 H 98-107 mmol/L Carbon Dioxide Level 27 20-31 mmol/L Anion Gap 6 5-15 Blood Urea Nitrogen 17 9-23 mg/dL Creatinine 0.85 0.550-1.02 mg/dL Glomerular Filtration Rate Calc 72 >90 mL/min BUN/Creatinine Ratio 20.0 10.0-20.0 Serum Glucose 93 74-106 mg/dL Calcium Level 9.7 8.7-10.4 mg/dL Test 11/09/24 18:55 Range/Units White Blood Count 6.3 4.4-10.8 10^3/uL Red Blood Count 4.63 4.0-5.20 10^6/uL Hemoglobin 12.8 12.2-16.2 g/dL Hematocrit 36.9 36.0-46.0 % Mean Corpuscular Volume 79.8 L 80.0-100.0 fL Mean Corpuscular Hemoglobin 27.8 L 28.0-32.0 pg Mean Corpuscular Hemoglobin Concent 34.8 32.0-36.0 g/dL Red Cell Distribution Width 14.6 H 11.8-14.3 % Platelet Count 365 140-450 10^3/uL Mean Platelet Volume 8.2 6.9-10.8 fL Neutrophils (%) (Auto) 62.3 37.0-80.0 % Lymphocytes (%) (Auto) 30.2 10.0-50.0 % Monocytes (%) (Auto) 6.2 0.0-12.0 % Eosinophils (%) (Auto) 0.7 0.0-7.0 % Basophils (%) (Auto) 0.6 0.0-2.0 % Neutrophils # (Auto) 3.9 1.6-8.6 10 ^3/uL Lymphocytes # (Auto) 1.9 0.4-5.4 10 ^3/uL Monocytes # (Auto) 0.4 0-1.3 10 ^3/uL Eosinophils # (Auto) 0 0-0.8 10 ^3/uL Basophils # (Auto) 0 0-0.2 10 ^3/uL Nucleated Red Blood Cells 0.1 % Prothrombin Time 11.2 9.3-11.8 sec Prothrombin Time INR 1.06 0.9-1.15 Activated Partial Thromboplast Time 26.8 24.5-34.5 SEC Total Bilirubin 0.5 0.2-1.0 mg/dL Aspartate Amino Transferase (AST) 11 L 13-40 U/L Alanine Aminotransferase (ALT) 19 7-40 U/L Alkaline Phosphatase 67 46-116 U/L B-Type Natriuretic Peptide 103.50 0-100 pg/mL Total Protein 7.6 5.7-8.2 g/dL Albumin 4.1 3.2-4.8 g/dL Assessment Assessment/plan # Elevated trops, likely due to NSTEMI type 2 due to atrial fibrillation EKG not showing any ST changes, shows sinus rhythm Troponins, 60, 56, 71, 66, 65 -nuclear stress test 11/08/24 Nuclear Conclusion Nuclear Findings: negative for ischemia lvef 70% no severe stress induced ischemia noted last echo 11/04/24 Conclusion Technically good study. Sinus rhythm. Concentric LVH with left atrial enlargement. Valves are normal. EF of 60% with normal RV function. Doppler reveals [id number]-[id number] mitral insufficiency. No pericardial effusion masses or vegetations. #Mild to mod MR # paroxysmal AFib, now normal sinus rhythm -SADIE?DS?-VA Score for Atrial Fibrillation Stroke Risk 4 points -HASBLED 3 points -keep k>4, mag>2 #DM2 #HTN #PAD PLAN -elevated trops are likely due to NSTEMI 2 due to demand ischaemia due to Afib -continue with flecainide and eliquis -continue management per primary team Thank you for consulting We will sign off from this case as of now, kindly reconsult if needed Case discussion with Dr Trivedi Plan/Recommendation Patient was discussed with Resident Physician Dr. Sarah Tsang. I agree with his Assessment and Plan, which was formulated with me. Plan discussed with: Patient, Daughter SARAH TSANG RESIDENT November 10, 2024 13:05 JENNIFER CRAIG DO November 10, 2024 21:41
--- NOTE | 2024-11-10 17:14 | DVHPN2 ---
Subjective 74-year-old female came due to chest pain and shortness of breaths She has mildly elevated troponin She was just here last week and was discharged after she was diagnosed with new onset atrial fibrillation paroxysmal, she was discharged on Eliquis and flecainide Changes from previous H/P or p: Changes Objective Vitals Vital Signs Date Time Temp Pulse Resp B/P (MAP) Pulse Ox O2 Delivery O2 Flow Rate FiO2 11/10/24 16:35 98.6 74 20 146/56 (86) 100 98.6 11/10/24 08:00 Nasal Cannula* 2 28 Intake/Output Intake and Output 11/10/24 07:00 # Voids 1 General Appearance: Alert, Oriented X3, Cooperative, No acute distress Lungs: Clear to auscultation, Normal air movement Cardiovascular: Regular rate, Normal S1, Normal S2, No murmurs Abdomen: Normal bowel sounds, Soft, No tenderness, No hepatospenomegaly Extremities: No edema Medications Current Medications Medications Dose Ordered Sig/Sherice Route Start Time Stop Time Status Last Admin Dose Admin Aspirin 162 mg DAILY PO 11/10/24 10:00 11/10/24 09:25 162 MG Atorvastatin Calcium 40 mg HS PO 11/09/24 22:00 11/09/24 22:30 40 MG Apixaban 5 mg BID PO 11/09/24 22:00 11/10/24 09:25 5 MG Losartan Potassium 50 mg DAILY PO 11/10/24 10:00 11/10/24 09:26 50 MG Diagnostic Test (Pha) 1 strip Q6HR 11/10/24 00:00 11/10/24 12:10 1 STRIP Insulin Human Regular Q6HR SC 11/10/24 00:00 11/10/24 12:37 3 UNITS Dextrose 50 ml UD PRN IV 11/09/24 21:45 Ondansetron HCl 4 mg Q4HP PRN IV 11/09/24 21:45 Acetaminophen 650 mg Q6HP PRN PO 11/09/24 21:45 Nitroglycerin 0.4 mg Q5MINP PRN SL 11/09/24 21:45 Morphine Sulfate 2 mg Q30M PRN IV 11/09/24 21:45 Albuterol 2.5 mg Q6HPRN PRN NEB 11/10/24 05:30 Cancel Azithromycin 250 ml @ 125 mls/hr DAILY IV 11/11/24 10:00 Laboratory Results Laboratory Tests 11/09/24 18:55 11/10/24 06:36 Chemistry Test 11/09/24 18:55 11/10/24 06:36 Albumin 4.1 g/dL (3.2-4.8) Calcium Level 9.8 mg/dL (8.7-10.4) 9.7 mg/dL (8.7-10.4) Total Protein 7.6 g/dL (5.7-8.2) Coagulation Test 11/09/24 18:55 Prothrombin Time 11.2 sec (9.3-11.8) Prothrombin Time INR 1.06 (0.9-1.15) Activated Partial Thromboplast Time 26.8 SEC (24.5-34.5) Cardiac Markers Test 11/09/24 18:55 B-Type Natriuretic Peptide 103.50 pg/mL (0-100) LFT Test 11/09/24 18:55 Alanine Aminotransferase (ALT) 19 U/L (7-40) Alkaline Phosphatase 67 U/L (46-116) Aspartate Amino Transferase (AST) 11 U/L (13-40) L Total Bilirubin 0.5 mg/dL (0.2-1.0) Assessment/Plan Assessment/Plan Troponin likely due to NSTEMI type 2 due to atrial fibrillation Paroxysmal atrial fibrillation Mild to moderate mitral regurgitation Type 2 diabetes Hypertension Peripheral arterial disease Osteomyelitis of the left 5th digit Mixed hyperlipidemia Viral pneumonitis versus pulmonary edema History of uiszh-enr-kvgu amputation of the right leg Plan Continue Eliquis Continue flecainide Ceftriaxone for the osteomyelitis And azithromycin for possible viral pneumonitis Lipitor Insulin as needed Losartan Cardiology consult Echocardiogram reviewed from last admission She had a normal stress test last admission also Full code Advance directives discussed for 20 minutes Plan discussed with: Patient, Daughter My Orders Orders - KRIS GONZALEZ MD Procedure Category Date Status Time * Cardiology Consult CONS 11/10/24 Transmitted 10:19 Mrsa Screen LEONCIO 11/10/24 In Process 11:54 Date of Service: November 10, 2024 Billing Provider: KRIS GONZALEZ MD Common Visit Codes: [id number] INP/OBS CARE(HIGH) Secondary Visit Codes: [id number] CARE PLAN 30 MINUTES KRIS GONZALEZ MD November 10, 2024 17:14
[2024-11-10] MEDS: cefTRIAXone 1GM/50ML D5W 50 ML IV ONE (17:15)
[2024-11-10] MEDS: FLECAINIDE ACETATE 50 MG TAB PO SCH (21:20)
[2024-11-11] VITALS (8 sets, daily range): BP systolic 120–164; BP diastolic 52–64; PULSE 75–83; RESP 16–18; TEMP 97.5–98.8; O2SAT 94–99
[2024-11-11] MEDS: AZITHROMYCIN 500MG/ 250ML 250 ML IV SCH (09:32)
[2024-11-11] MEDS: cefTRIAXone 1GM/50ML D5W 50 ML IV SCH (09:32)
--- NOTE | 2024-11-11 09:46 | ECG ---
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
--- NOTE | 2024-11-11 14:03 | DVHPN2 ---
Consult Progress Note Date Seen: November 11, 2024 Subjective Review of Systems: CVS:Normal, RESPIRATORY:Normal, NEURO:Normal Objective vital signs Vital Sign Date Time Temp Pulse Resp B/P (MAP) Pulse Ox O2 Delivery O2 Flow Rate FiO2 11/11/24 09:46 141/56 11/11/24 09:00 97.5 78 18 96 97.5 11/10/24 20:00 Room Air* 0 21 Total Intake and Output 11/10/24 11/10/24 11/11/24 15:00 23:00 07:00 Intake Total 1100 ml 125 ml Output Total 975 ml Balance 125 ml 125 ml medications Current Medications Medications Dose Ordered Sig/Sherice Route Start Time Stop Time Status Last Admin Dose Admin Aspirin 162 mg DAILY PO 11/10/24 10:00 11/11/24 09:32 162 MG Atorvastatin Calcium 40 mg HS PO 11/09/24 22:00 11/10/24 21:20 40 MG Apixaban 5 mg BID PO 11/09/24 22:00 11/11/24 09:33 5 MG Losartan Potassium 50 mg DAILY PO 11/10/24 10:00 11/11/24 09:46 50 MG Diagnostic Test (Pha) 1 strip Q6HR 11/10/24 00:00 11/11/24 13:01 1 STRIP Insulin Human Regular Q6HR SC 11/10/24 00:00 11/11/24 13:07 6 UNITS Dextrose 50 ml UD PRN IV 11/09/24 21:45 Ondansetron HCl 4 mg Q4HP PRN IV 11/09/24 21:45 Acetaminophen 650 mg Q6HP PRN PO 11/09/24 21:45 Nitroglycerin 0.4 mg Q5MINP PRN SL 11/09/24 21:45 Morphine Sulfate 2 mg Q30M PRN IV 11/09/24 21:45 Albuterol 2.5 mg Q6HPRN PRN NEB 11/10/24 05:30 Cancel Azithromycin 250 ml @ 125 mls/hr DAILY IV 11/11/24 10:00 11/11/24 09:32 125 MLS/HR Flecainide Acetate 50 mg Q12HR PO 11/10/24 22:00 11/11/24 09:32 50 MG Ceftriaxone Sodium 50 ml @ 100 mls/hr DAILY@09 IV 11/11/24 09:00 11/11/24 09:32 100 MLS/HR Examination: LUNGS:Normal, CVS:Normal, NEURO:Normal laboratory and microbiology Laboratory Tests 11/10/24 06:36 11/09/24 18:55 Test 11/10/24 06:36 Range/Units Serum Glucose 93 74-106 mg/dL Problem List/Assessment/Plan Problem List/Assessment/Plan Non ST-elevation myocardial infarction Chest pain rule out coronary artery disease Paroxysmal atrial fibrillation, Stage III, now NSR, recently diagnosed Diabetic ulcer to left 5th toe with mild peripheral arterial disease Mitral insufficiency, [id number] Insulin-dependent diabetes mellitus Hypertension Dyslipidemia Right BKA Plan/Recommendation (Dr. Recio) * Echocardiogram revealed LVEF 60% with normal RV function * Cardiolite stress test rule out coronary ischemic * Preliminary, non-ischemic as reviewed by Dr. Mackay * Left lower extremity peripheral arterial duplex: mild PAD at 30-49% * Continue single-antiplatelet therapy and lipid-lowering agent * Rate control, metoprolol XL. Uptitrate as tolerated * Patient not sent home on BB on last admission * Antiarrhythmic therapy, initiate low-dose Flecainide * DOAC therapy, Eliquis: hold given interventional procedure * [id number] Score 4 points. HAS-BLED Score 1 point * Replete electrolytes as necessary, K>4 and Mg>2 * Follow-up with Dr. Mackay on 11/19/2024 at 0900 * Information provided to grand-daughter at bedside Patient presents with recurrent chest pain. Given recurrent symptoms, clinical presentation, risk factors, and a Heart Score of 6 points placing the patient at a moderate risk for major cardiac events, she is scheduled for a coronary angiogram with left cardiac catheterization on 11/11/2024. Risks and benefits of the procedure were discussed in detail including the risk of bleeding, CVA, TORRIE, coronary dissection, and even . Daughter at bedside assisted with translation stating the patient agree for intervention. All questions answered. Further orders per clinical course. Thank you for allowing us to participate in this patient's care. This medical document was created using an electronic medical record system with voice recognition software and computerized dictation system. Although this document has been carefully reviewed, there might still be some phonetic and typographical errors. Occasional wrong-word or ``sound-alike substitutions may have occurred due to the inherent limitations of voice recognition software. These areas are purely typographical due to imperfections of the software programs and do not reflect any compromise in the patient's medical care. Please read the chart carefully and recognize, using context, where these substitutions have occurred. Plan discussed with: Patient, Other Date of Service: November 11, 2024 Billing Provider: RICKEY SALCEDO Cardiology Common Codes: [id number] HOSP CARE(High RICKEY SALCEDO November 11, 2024 14:03
--- NOTE | 2024-11-11 15:10 | DVHPN2 ---
Subjective She is still complaining of chest pain and shortness of breaths with activity She says she went to use the restroom this morning and when she came out she was short of breaths with pressure sensation in the chest Changes from previous H/P or p: Changes Objective Vitals Vital Signs Date Time Temp Pulse Resp B/P (MAP) Pulse Ox O2 Delivery O2 Flow Rate FiO2 11/11/24 13:00 98.8 83 18 145/64 (91) 99 98.8 11/10/24 20:00 Room Air* 0 21 Intake/Output Intake and Output 11/11/24 07:00 Intake Total 1225 ml Output Total 975 ml Balance 250 ml Intake Oral 925 ml IV Total 300 ml Output Urine Total 975 ml # Voids 3 General Appearance: Alert, Oriented X3, Cooperative, No acute distress Lungs: Clear to auscultation, Normal air movement Cardiovascular: Regular rate, Normal S1, Normal S2, No murmurs Abdomen: Normal bowel sounds, Soft, No tenderness, No hepatospenomegaly Extremities: No edema Medications Current Medications Medications Dose Ordered Sig/Sherice Route Start Time Stop Time Status Last Admin Dose Admin Atorvastatin Calcium 40 mg HS PO 11/09/24 22:00 11/10/24 21:20 40 MG Losartan Potassium 50 mg DAILY PO 11/10/24 10:00 11/11/24 09:46 50 MG Diagnostic Test (Pha) 1 strip Q6HR 11/10/24 00:00 11/11/24 13:01 1 STRIP Insulin Human Regular Q6HR SC 11/10/24 00:00 11/11/24 13:07 6 UNITS Dextrose 50 ml UD PRN IV 11/09/24 21:45 Ondansetron HCl 4 mg Q4HP PRN IV 11/09/24 21:45 Acetaminophen 650 mg Q6HP PRN PO 11/09/24 21:45 Nitroglycerin 0.4 mg Q5MINP PRN SL 11/09/24 21:45 Morphine Sulfate 2 mg Q30M PRN IV 11/09/24 21:45 Albuterol 2.5 mg Q6HPRN PRN NEB 11/10/24 05:30 Cancel Azithromycin 250 ml @ 125 mls/hr DAILY IV 11/11/24 10:00 11/11/24 09:32 125 MLS/HR Flecainide Acetate 50 mg Q12HR PO 11/10/24 22:00 11/11/24 09:32 50 MG Ceftriaxone Sodium 50 ml @ 100 mls/hr DAILY@09 IV 11/11/24 09:00 11/11/24 09:32 100 MLS/HR Aspirin 81 mg DAILY PO 11/12/24 10:00 Metoprolol Succinate 25 mg DAILY PO 11/12/24 10:00 Laboratory Results Laboratory Tests 11/09/24 18:55 11/10/24 06:36 Microbiology Microbiology Date/Time Source Procedure Growth Status 11/10/24 11:54 Nose MRSA Screen - Final Complete Assessment/Plan Assessment/Plan Troponin likely due to NSTEMI type 2 due to atrial fibrillation Paroxysmal atrial fibrillation Mild to moderate mitral regurgitation Type 2 diabetes Hypertension Peripheral arterial disease Osteomyelitis of the left 5th digit Mixed hyperlipidemia Viral pneumonitis versus pulmonary edema History of tkkib-lon-ihdp amputation of the right leg Plan Continue Eliquis Continue flecainide Ceftriaxone for the osteomyelitis And azithromycin for possible viral pneumonitis Lipitor Insulin as needed Losartan Cardiology consult Echocardiogram reviewed from last admission She had a normal stress test last admission also Full code Advance directives discussed for 20 minutes 11/11/2024: Chest pain with shortness of breaths, rule out coronary artery disease, The patient was seen by Cardiology and she is scheduled to have a heart catheterization today or tomorrow Continue flecainide and Eliquis IV antibiotics for possible underlying pneumonitis Aspirin Atrial fibrillation: Echocardiogram and Cardiolite stress test were done 1 week ago reported negative Peripheral arterial disease mild Plan discussed with: Patient My Orders Orders - KRIS GONZALEZ MD Procedure Category Date Status Time Flecainide Tablet PHA 11/10/24 In Process (Tambocor Tablet) 22:00 Ceftriaxone 1gm/50ml PHA 11/11/24 In Process D5w (Rocephin) 09:00 Date of Service: November 11, 2024 Billing Provider: KRIS GONZALEZ MD Common Visit Codes: [id number] INP/OBS CARE(HIGH) KRIS GONZALEZ MD November 11, 2024 15:10
[2024-11-12] VITALS (13 sets, daily range): BP systolic 132–167; BP diastolic 55–73; PULSE 71–81; RESP 13–20; TEMP 98.2–98.8; O2SAT 93–98
[2024-11-12 04:56] LABS: Urine Bacteria None Seen /hpf (None Seen)
[2024-11-12 05:04] LABS: Urine Blood Negative /uL (Negative); Urine Clarity Clear (Clear); Urine Color Yellow (Yellow); Urine Protein, UAD Negative (Negative); Urine Specific Gravity 1.021 (1.001-1.035); Urine Squamous Epithelial Cell FEW /hpf (<5); Urine Urobilinogen Normal (Negative); Urine WBC 4 /HPF (0-5)
[2024-11-12 07:03] LABS: Anion Gap 8 (5-15); Carbon Dioxide 26 mmol/L (20-31); Chloride 107 mmol/L (98-107); Potassium 4.6 mmol/L (3.5-5.1); Sodium 141 mmol/L (136-145)
[2024-11-12 07:04] LABS: Calcium 9.1 mg/dL (8.7-10.4)
[2024-11-12 07:09] LABS: BUN/Creatinine Ratio 18.8 (10.0-20.0); Blood Urea Nitrogen 16 mg/dL (9-23)
[2024-11-12 07:14] LABS: Basophils # (auto) 0 10 ^3/uL (0-0.2); Eosinophils # (auto) 0 10 ^3/uL (0-0.8); Glucose 173 mg/dL (74-106); Lymphocytes # (auto) 1.2 10 ^3/uL (0.4-5.4); Monocytes # (auto) 0.5 10 ^3/uL (0-1.3)
[2024-11-12 07:16] LABS: Basophils % (auto) 1.2 % (0.0-2.0); Eosinophils % (auto) 1.1 % (0.0-7.0); Hematocrit 31.8 % (36.0-46.0); Lymphocytes % (auto) 29.2 % (10.0-50.0); Mean Corpuscular Hemoglobin 27.2 pg (28.0-32.0); Mean Corpuscular Hgb Conc. 34.4 g/dL (32.0-36.0); Mean Corpuscular Volume 79.1 fL (80.0-100.0); Monocytes % (auto) 11.4 % (0.0-12.0); Neutrophils # (auto) 2.3 10 ^3/uL (1.6-8.6); Neutrophils % (auto) 57.1 % (37.0-80.0); Platelet Count (auto) 294 10^3/uL (140-450); Red Blood Cells 4.02 10^6/uL (4.0-5.20); Red Cell Distribution Width 14.7 % (11.8-14.3)
[2024-11-12 07:20] LABS: INR 1.05 (0.9-1.15); Partial Thromboplastin Time 25.5 SEC (24.5-34.5); Prothrombin Time 11.1 sec (9.3-11.8)
[2024-11-12] MEDS: ASPirin 81 mg TAB PO SCH (09:48)
[2024-11-12] MEDS: METOPROLOL SUCCINATE XL 50 MG TAB PO SCH (09:49)
[2024-11-12] MEDS: ANGIOMAX 250 MG VIAL IV ONE (14:21)
[2024-11-12] MEDS: SODIUM CHL 0.9% 0 ML ONE (14:22)
[2024-11-12] MEDS: fentaNYL CITRATE 100 MCG/2 ML VL ONE (14:22)
[2024-11-12] MEDS: VERAPAMIL 2.5MG/ML INJ 2ML VIAL IV ONE (14:22)
[2024-11-12] MEDS: LIDOCAINE 2%HCL (LOCAL ANESTH.) INJ 20ML MDV ONE (14:22)
[2024-11-12] MEDS: HEPARIN SODIUM (PORCINE) 5000 UNITS/ML 1ML VIAL ONE (14:22)
[2024-11-12] MEDS: MIDAZOLAM HCL 2MG/2ML 2ml VIAL (1mg/ml) ONE (14:22)
--- NOTE | 2024-11-12 15:15 | DVHOP2 ---
Operative Report - 2 Report Details Date: 11/12/24 Preop Diagnosis: CAD Postop Diagnosis: Normal coronary arteries Surgeon: John Mackay MD Anesthesiologist: Conscious sedation Anesthesia: Mac, Local Consent: The patient was informed of the risks and benefits of the procedure. These include but are not limited to complications of anesthesia, postoperative infection, incomplete relief of symptoms, recurrence of symptoms, damage to blood vessels, nerves and tendons, deep venous thrombosis, pulmonary embolism and possible need for repeat surgery in the future. Complications: No complications Findings: Normal coronaries Indications for Surgery: Chest pain Name of Procedure Performed Left heart catheterization bilateral cine coronary angiography. Left ventriculography. Procedure Details Procedure Details: Prior local anesthesia with 2% lidocaine to the right wrist and full informed consent obtained patient was prepped and draped in the usual fashion followed by placement of a six [place]guillan sheath into the radial artery through which six Anguillan Carol catheters were used to cannulate both right and left coronary ostia and a pigtail catheter was used for ventriculography no complications. Hemodynamics aortic blood pressure was 130/70 end-diastolic pressure was 10. No gradient across aortic valve on pullback. Coronary anatomy: The RCA is a large vessel it is normal in its proximal mid distal segments. PDA and posterolateral branches are normal. The left main is large and normal. Left anterior descending is a large vessel it is normal in its proximal mid and distal segments. Diagonals and septals are normal. Circumflex is large with two obtuse marginals free of significant disease. Ventriculography in the [place] projection shows an EF of 60%. Impression: Normal left ventricular end-diastolic pressure at rest, normal left ventricular ejection fraction, no significant CAD, Recommendations continue current medical therapy. Risk factor modification to continue. Condition Good Disposition Still a Patient Date of Service: November 12, 2024 Billing Provider: JOHN MACKAY Sr., MD Cardiology Common Codes: PROCEDURE ONLY Cardiology Procedure Codes: [id number] VESSEL W/I VASC FAM, [id number] ADD COR ART/BRNCH/GRFT JOHN MACKAY Sr., MD November 12, 2024 15:15
--- NOTE | 2024-11-12 17:15 | DVHPN2 ---
Consult Progress Note Date Seen: November 12, 2024 Subjective Review of Systems: CVS:Normal, RESPIRATORY:Normal, NEURO:Normal Objective vital signs Vital Sign Date Time Temp Pulse Resp B/P (MAP) Pulse Ox O2 Delivery O2 Flow Rate FiO2 11/12/24 16:42 98.6 72 18 142/62 (88) 97 98.6 11/12/24 08:30 Room Air* 0 21 Total Intake and Output 11/11/24 11/11/24 11/12/24 15:00 23:00 07:00 Intake Total 300 ml 475 ml 900 ml Balance 300 ml 475 ml 900 ml medications Current Medications Medications Dose Ordered Sig/Sherice Route Start Time Stop Time Status Last Admin Dose Admin Atorvastatin Calcium 40 mg HS PO 11/09/24 22:00 11/11/24 23:35 40 MG Losartan Potassium 50 mg DAILY PO 11/10/24 10:00 11/12/24 09:49 50 MG Diagnostic Test (Pha) 1 strip Q6HR 11/10/24 00:00 11/12/24 12:09 1 STRIP Insulin Human Regular Q6HR SC 11/10/24 00:00 11/12/24 06:10 3 UNITS Dextrose 50 ml UD PRN IV 11/09/24 21:45 Ondansetron HCl 4 mg Q4HP PRN IV 11/09/24 21:45 Acetaminophen 650 mg Q6HP PRN PO 11/09/24 21:45 Nitroglycerin 0.4 mg Q5MINP PRN SL 11/09/24 21:45 Morphine Sulfate 2 mg Q30M PRN IV 11/09/24 21:45 Albuterol 2.5 mg Q6HPRN PRN NEB 11/10/24 05:30 Cancel Azithromycin 250 ml @ 125 mls/hr DAILY IV 11/11/24 10:00 11/12/24 11:00 125 MLS/HR Flecainide Acetate 50 mg Q12HR PO 11/10/24 22:00 11/12/24 09:48 50 MG Ceftriaxone Sodium 50 ml @ 100 mls/hr DAILY@09 IV 11/11/24 09:00 11/12/24 09:48 100 MLS/HR Aspirin 81 mg DAILY PO 11/12/24 10:00 11/12/24 09:48 81 MG Metoprolol Succinate 25 mg DAILY PO 11/12/24 10:00 11/12/24 09:49 25 MG Examination: LUNGS:Normal, CVS:Normal, NEURO:Normal laboratory and microbiology Laboratory Tests 11/12/24 06:10 Test 11/12/24 06:10 Range/Units Serum Glucose 173 H 74-106 mg/dL Problem List/Assessment/Plan Problem List/Assessment/Plan Non ST-elevation myocardial infarction s/p C with no CAD Paroxysmal atrial fibrillation, Stage III, now NSR, recently diagnosed Diabetic ulcer to left 5th toe with mild peripheral arterial disease Mitral insufficiency, [id number] Insulin-dependent diabetes mellitus Hypertension Dyslipidemia Right BKA Plan/Recommendation (Dr. Recio) * Echocardiogram revealed LVEF 60% with normal RV function * Cardiolite stress test rule out coronary ischemic * Preliminary, non-ischemic as reviewed by Dr. Mackay * Left lower extremity peripheral arterial duplex: mild PAD at 30-49% * Continue single-antiplatelet therapy and lipid-lowering agent * Rate control, metoprolol XL. Uptitrate as tolerated * Patient not sent home on BB on last admission * Antiarrhythmic therapy, initiate low-dose Flecainide * DOAC therapy, Eliquis: hold given interventional procedure * [id number] Score 4 points. HAS-BLED Score 1 point * Replete electrolytes as necessary, K>4 and Mg>2 * Follow-up with Dr. Mackay on 11/19/2024 at 0900 * Information provided to grand-daughter at bedside The patient underwent a cardiac catheterization without catheter based intervention given normal coronaries. Continue Eliquis, metoprolol XL, and Flecainide therapy. Follow up with Dr. Mackay as scheduled on 11/19/2024 at 0900. Kindly call with any questions or concerns. We will sign off at this time. Thank you for allowing us to participate in this patient's care. This medical document was created using an electronic medical record system with voice recognition software and computerized dictation system. Although this document has been carefully reviewed, there might still be some phonetic and typographical errors. Occasional wrong-word or ``sound-alike substitutions may have occurred due to the inherent limitations of voice recognition software. These areas are purely typographical due to imperfections of the software programs and do not reflect any compromise in the patient's medical care. Please read the chart carefully and recognize, using context, where these substitutions have occurred. Plan discussed with: Patient, Daughter, Other Date of Service: November 12, 2024 Billing Provider: RICKEY SALCEDO Cardiology Common Codes: [id number] INP/OBS CARE(Mod) RICKEY SALCEDO November 12, 2024 17:15
[2024-11-12] MEDS ORDERED: METO25TA36 PO (19:55)
--- NOTE | 2024-11-12 22:06 | DVHPN2 ---
Subjective Heart cath normal Awaiting ABGs on room air to be done Changes from previous H/P or p: Changes Objective Vitals Vital Signs Date Time Temp Pulse Resp B/P (MAP) Pulse Ox O2 Delivery O2 Flow Rate FiO2 11/12/24 21:00 98.2 75 18 150/56 (87) 94 98.2 11/12/24 20:00 Room Air* 0 21 Intake/Output Intake and Output 11/12/24 07:00 Intake Total 1675 ml Balance 1675 ml Intake Oral 1375 ml IV Total 300 ml # Voids 5 # Bowel Movements 2 General Appearance: Alert, Oriented X3, Cooperative, No acute distress Lungs: Clear to auscultation, Normal air movement Cardiovascular: Regular rate, Normal S1, Normal S2, No murmurs Abdomen: Normal bowel sounds, Soft, No tenderness, No hepatospenomegaly Extremities: No edema Medications Current Medications Medications Dose Ordered Sig/Sherice Route Start Time Stop Time Status Last Admin Dose Admin Atorvastatin Calcium 40 mg HS PO 11/09/24 22:00 11/11/24 23:35 40 MG Losartan Potassium 50 mg DAILY PO 11/10/24 10:00 11/12/24 09:49 50 MG Diagnostic Test (Pha) 1 strip Q6HR 11/10/24 00:00 11/12/24 17:41 1 STRIP Insulin Human Regular Q6HR SC 11/10/24 00:00 11/12/24 17:42 4 UNITS Dextrose 50 ml UD PRN IV 11/09/24 21:45 Ondansetron HCl 4 mg Q4HP PRN IV 11/09/24 21:45 Acetaminophen 650 mg Q6HP PRN PO 11/09/24 21:45 Nitroglycerin 0.4 mg Q5MINP PRN SL 11/09/24 21:45 Morphine Sulfate 2 mg Q30M PRN IV 11/09/24 21:45 Albuterol 2.5 mg Q6HPRN PRN NEB 11/10/24 05:30 Cancel Azithromycin 250 ml @ 125 mls/hr DAILY IV 11/11/24 10:00 11/12/24 11:00 125 MLS/HR Flecainide Acetate 50 mg Q12HR PO 11/10/24 22:00 11/12/24 09:48 50 MG Ceftriaxone Sodium 50 ml @ 100 mls/hr DAILY@09 IV 11/11/24 09:00 11/12/24 09:48 100 MLS/HR Aspirin 81 mg DAILY PO 11/12/24 10:00 11/12/24 09:48 81 MG Metoprolol Succinate 25 mg DAILY PO 11/12/24 10:00 11/12/24 09:49 25 MG Laboratory Results Laboratory Tests 11/12/24 06:10 Chemistry Test 11/12/24 06:10 Calcium Level 9.1 mg/dL (8.7-10.4) Coagulation Test 11/12/24 06:10 Prothrombin Time 11.1 sec (9.3-11.8) Prothrombin Time INR 1.05 (0.9-1.15) Activated Partial Thromboplast Time 25.5 SEC (24.5-34.5) Urinalysis Test 11/12/24 04:25 Urine Color Yellow (Yellow) Urine Clarity Clear (Clear) Urine pH 6.0 (5.0-9.0) Urine Specific [place] 1.021 (1.001-1.035) Urine Protein Negative (Negative) Urine Ketones Negative (Negative) Urine Blood Negative /uL (Negative) Urine Nitrite Negative (Negative) Urine Bilirubin Negative (Negative) Urine Urobilinogen Normal mg/dL (Negative) Urine Leukocyte Esterase 1+ /uL (Negative) Urine RBC 7 /hpf (0 - 4) Urine Microscopic WBC 4 /HPF (0-5) Urine Squamous Epithelial Cells Few /hpf (<5) Urine Bacteria None seen /hpf (None Seen) Urine Glucose Trace mg/dL (Normal) Microbiology Microbiology Date/Time Source Procedure Growth Status 11/10/24 11:54 Nose MRSA Screen - Final Complete Assessment/Plan Assessment/Plan Troponin likely due to NSTEMI type 2 due to atrial fibrillation Paroxysmal atrial fibrillation Mild to moderate mitral regurgitation Type 2 diabetes Hypertension Peripheral arterial disease Osteomyelitis of the left 5th digit Mixed hyperlipidemia Viral pneumonitis versus pulmonary edema History of [id number] amputation of the right leg Plan Continue Eliquis Continue flecainide Ceftriaxone for the osteomyelitis And azithromycin for possible viral pneumonitis Lipitor Insulin as needed Losartan Cardiology consult Echocardiogram reviewed from last admission She had a normal stress test last admission also Full code Advance directives discussed for 20 minutes 11/11/2024: Chest pain with shortness of breaths, rule out coronary artery disease, The patient was seen by Cardiology and she is scheduled to have a heart catheterization today or tomorrow Continue flecainide and Eliquis IV antibiotics for possible underlying pneumonitis Aspirin Atrial fibrillation: Echocardiogram and Cardiolite stress test were done 1 week ago reported negative Peripheral arterial disease mild 11/12/24: ABGs on room air pending Discharge planning once ABGs is done Plan discussed with: Patient, Daughter My Orders Orders - KRIS GONZALEZ MD Procedure Category Date Status Time Abg W/ Co-Ox RT 11/12/24 Logged 16:38 Date of Service: November 12, 2024 Billing Provider: KRIS GONZALEZ MD Common Visit Codes: [id number] INP/OBS CARE(HIGH) KRIS GONZALEZ MD November 12, 2024 22:06
[2024-11-12 23:14] LABS: Base Excess 0.3 mmol/L (-2.0-3.0)
[2024-11-13] VITALS (10 sets, daily range): BP systolic 110–122; BP diastolic 48–57; PULSE 67–88; RESP 16–28; TEMP 97.6–98.8; O2SAT 90–100
[2024-11-13 07:14] LABS: Alanine Aminotransferase 11 U/L (7-40); Albumin 3.8 g/dL (3.2-4.8); Alkaline Phosphatase 59 U/L (46-116); Anion Gap 9 (5-15); BUN/Creatinine Ratio 20.2 (10.0-20.0); Bilirubin, Total 0.7 mg/dL (0.2-1.0); Blood Urea Nitrogen 17 mg/dL (9-23); Calcium 9.8 mg/dL (8.7-10.4); Carbon Dioxide 25 mmol/L (20-31); Chloride 107 mmol/L (98-107); Potassium 4.3 mmol/L (3.5-5.1); Sodium 141 mmol/L (136-145); Total Protein 7.1 g/dL (5.7-8.2)
[2024-11-13 07:18] LABS: Aspartate Aminotransferase 9 U/L (13-40); Glucose 140 mg/dL (74-106)
--- NOTE | 2024-11-13 11:38 | DVH ---
CHEST RADIOGRAPH Indication: SOB Technique: Single frontal view of the chest was obtained Comparison: XY CHEST PORTABLE on DOS: 11/09/24, XY CHEST PORTABLE on DOS: 11/03/24 FINDINGS: Lines and Tubes: None Lungs: No focal consolidation. Mild pulmonary venous congestion Pleura: No effusion. No pneumothorax. Cardiomediastinal contours: Unremarkable Bones: No acute osseous abnormality. IMPRESSION: 1. Mild pulmonary venous congestion 2. No evidence of airspace consolidation.
[2024-11-13] MEDS: FUROSEMIDE 40 MG/4 ML VIAL IV ONE (11:45)
[2024-11-13] MEDS ORDERED: DEXTROSE (50%) 50ML SYRG IV PRN (12:00)
[2024-11-13] MEDS: FUROSEMIDE 40 MG/4 ML VIAL ONE (12:15)
[2024-11-13] MEDS: ALBUTEROL SULF 2.5 MG/0.5ML(0.5%) NEB SOLN NEB ONE (12:15)
[2024-11-13] MEDS: ALBUTEROL SULF 2.5 MG/0.5ML(0.5%) NEB SOLN ONE (12:15)
[2024-11-13] MEDS: IOHEXOL 350 MG/ML 100ML IJ ONE ×2 (12:24→14:58)
[2024-11-13 12:46] LABS: Base Excess -7.8 mmol/L (-2.0-3.0)
--- NOTE | 2024-11-13 14:54 | DVHPN2 ---
Subjective Acute hypotension Shortness of breath Reviewed: Care Plan, H&P, Medications Changes from previous H/P or p: Changes Cardiovascular: Other (Low BP) Respiratory: Shortness of breath Objective Vitals Vital Signs Date Time Temp Pulse Resp B/P (MAP) Pulse Ox O2 Delivery O2 Flow Rate FiO2 11/13/24 13:06 98.8 84 20 116/54 (74) 92 98.8 11/13/24 12:15 Facial BiPAP Mask 60 11/13/24 08:00 0 Intake/Output Intake and Output 11/13/24 07:00 Intake Total 1300 ml Balance 1300 ml Intake Oral 1000 ml IV Total 300 ml # Voids 5 # Bowel Movements 1 General Appearance: Alert, Oriented X3, Cooperative, No acute distress, mild distress Lungs: Other (Diminished lung sounds. Currently on BiPAP) Cardiovascular: Regular rate, Normal S1, Normal S2 Abdomen: Normal bowel sounds, Soft, No tenderness, No hepatospenomegaly Extremities: No edema Medications Current Medications Medications Dose Ordered Sig/Sherice Route Start Time Stop Time Status Last Admin Dose Admin Atorvastatin Calcium 40 mg HS PO 11/09/24 22:00 11/12/24 23:44 40 MG Losartan Potassium 50 mg DAILY PO 11/10/24 10:00 11/13/24 08:50 50 MG Ondansetron HCl 4 mg Q4HP PRN IV 11/09/24 21:45 Acetaminophen 650 mg Q6HP PRN PO 11/09/24 21:45 Nitroglycerin 0.4 mg Q5MINP PRN SL 11/09/24 21:45 Morphine Sulfate 2 mg Q30M PRN IV 11/09/24 21:45 Albuterol 2.5 mg Q6HPRN PRN NEB 11/10/24 05:30 Cancel Flecainide Acetate 50 mg Q12HR PO 11/10/24 22:00 11/13/24 08:50 50 MG Ceftriaxone Sodium 50 ml @ 100 mls/hr DAILY@09 IV 11/11/24 09:00 11/13/24 08:51 100 MLS/HR Aspirin 81 mg DAILY PO 11/12/24 10:00 11/13/24 08:49 81 MG Metoprolol Succinate 25 mg DAILY PO 11/12/24 10:00 11/13/24 08:50 25 MG Diagnostic Test (Pha) 1 strip ACHS 11/13/24 17:00 Insulin Human Regular ACHS SC 11/13/24 17:00 Dextrose 50 ml UD PRN IV 11/13/24 12:00 Laboratory Results Laboratory Tests 11/12/24 06:10 11/13/24 06:14 Chemistry Test 11/13/24 06:14 Albumin 3.8 g/dL (3.2-4.8) Calcium Level 9.8 mg/dL (8.7-10.4) Total Protein 7.1 g/dL (5.7-8.2) LFT Test 11/13/24 06:14 Alanine Aminotransferase (ALT) 11 U/L (7-40) Alkaline Phosphatase 59 U/L (46-116) Aspartate Amino Transferase (AST) 9 U/L (13-40) L Total Bilirubin 0.7 mg/dL (0.2-1.0) Urinalysis Test 11/12/24 04:25 Urine Color Yellow (Yellow) Urine Clarity Clear (Clear) Urine pH 6.0 (5.0-9.0) Urine Specific [place] 1.021 (1.001-1.035) Urine Protein Negative (Negative) Urine Ketones Negative (Negative) Urine Blood Negative /uL (Negative) Urine Nitrite Negative (Negative) Urine Bilirubin Negative (Negative) Urine Urobilinogen Normal mg/dL (Negative) Urine Leukocyte Esterase 1+ /uL (Negative) Urine RBC 7 /hpf (0 - 4) Urine Microscopic WBC 4 /HPF (0-5) Urine Squamous Epithelial Cells Few /hpf (<5) Urine Bacteria None seen /hpf (None Seen) Urine Glucose Trace mg/dL (Normal) Blood Gas Results Test 11/12/24 23:09 11/13/24 12:36 Arterial Blood pH 7.526 (7.350-7.450) 7.274 (7.350-7.450) FiO2 % 21.0 60.0 Microbiology Microbiology Date/Time Source Procedure Growth Status 11/10/24 11:54 Nose MRSA Screen - Final Complete Assessment/Plan Assessment/Plan Problem List/Assessment/Plan Non ST-elevation myocardial infarction s/p LHC with no CAD Paroxysmal atrial fibrillation, Stage III, now NSR, recently diagnosed Diabetic ulcer to left 5th toe with mild peripheral arterial disease Mitral insufficiency, [id number] Insulin-dependent diabetes mellitus Hypertension Dyslipidemia Right BKA Plan/Recommendation (Dr. Recio) 11/13/24 -- acute respiratory failure with hypoxemia, currently on BiPAP. Should rule out PE -pending CTA. Monitor BP closely. Pulmonary edema -IV diuresis * Echocardiogram revealed LVEF 60% with normal RV function * Cardiolite stress test rule out coronary ischemic * Preliminary, non-ischemic as reviewed by Dr. Landa * Left lower extremity peripheral arterial duplex: mild PAD at 30-49% * Continue single-antiplatelet therapy and lipid-lowering agent * Rate control, metoprolol XL. Uptitrate as tolerated * Patient not sent home on BB on last admission * Antiarrhythmic therapy, initiate low-dose Flecainide * DOAC therapy, Eliquis: hold given interventional procedure * [id number] Score 4 points. HAS-BLED Score 1 point * Replete electrolytes as necessary, K>4 and Mg>2 * Follow-up with Dr. Landa on 11/19/2024 at 0900 * Information provided to grand-daughter at bedside The patient underwent a cardiac catheterization without catheter based intervention given normal coronaries. Continue Eliquis, metoprolol XL, and Flecainide therapy. Follow up with Dr. Landa as scheduled on 11/19/2024 at 0900. Kindly call with any questions or concerns. We will sign off at this time. Thank you for allowing us to participate in this patient's care. This medical document was created using an electronic medical record system with voice recognition software and computerized dictation system. Although this document has been carefully reviewed, there might still be some phonetic and typographical errors. Occasional wrong-word or ``sound-alike substitutions may have occurred due to the inherent limitations of voice recognition software. These areas are purely typographical due to imperfections of the software programs and do not reflect any compromise in the patient's medical care. Please read the chart carefully and recognize, using context, where these substitutions have occurred. Plan discussed with: Patient, Daughter, Other Plan discussed with: Patient Date of Service: November 13, 2024 Billing Provider: JOHN LANDA Sr., MD Common Visit Codes: CONSULT ONLY SAMI VEGA TIPPLE OILER November 13, 2024 14:54
--- NOTE | 2024-11-13 16:08 | DVH ---
Procedure: CT CT ANGIO CHEST CONTRAST Reason for study/Clinical History: SOB Comparison Study: CT CT ANGIO CHEST CONTRAST on DOS: 11/03/24 Exam Date: 11/13/2024 03:08 PM Radiation Dose Information: CT Dose: CTDI volume is 32.56 mGy. Dose-length product is 987.58 mGy*cm Contrast: Type of contrast: Omnipaque 350 Contrast inject: 100 mL Contrast wasted:0 TECHNIQUE: After the uneventful administration of intravenous contrast intravenously, CT imaging was performed through the chest. Coronal and sagittal reformations were performed by the technologist. FINDINGS: Lower Neck: Visualized portions of the thyroid gland are unremarkable. Aorta and Vasculature: Normal caliber of thoracic aorta. Lymph Nodes: No enlarged intrathoracic lymph nodes. Mediastinum: Heart size is normal. There is no pericardial effusion. The esophagus is unremarkable. Lungs: Small bilateral pleural effusions and bibasilar areas of atelectasis. Musculoskeletal: No acute osseous abnormality. Upper abdomen: Limited portions of the upper abdomen are unremarkable. IMPRESSION: 1. Poor opacification of the pulmonary artery to exclude pulmonary emboli. Required opacification 266 Hounsfield units opacification achieved 220 Hounsfield units. 2. Grossly no saddle emboli or findings of pulmonary artery hypertension. No aortic aneurysm or aorti c dissection. 3. Bibasilar pleural effusions with airspace disease and atelectasis in both lower lung abel. All CT scans at this medical facility are performed using dose modulation techniques as appropriate t o a performed exam including the following: Automated exposure control was utilized; adjustment of th e MA and/or KV according to patient size; and use of iterative reconstruction technique.
[2024-11-13] MEDS: ACCU-CHEK COMFORT CURVE STRIP VI SCH (17:13)
[2024-11-13] MEDS: InsuLIN REG 1unit/0.01ml Soln (100units/ml) SC SCH (17:13)
[2024-11-13 18:01] LABS: Basophils # (auto) 0 10 ^3/uL (0-0.2); Eosinophils # (auto) 0 10 ^3/uL (0-0.8); Mean Corpuscular Volume 79.5 fL (80.0-100.0); White Blood Cell 4.6 10^3/uL (4.4-10.8)
[2024-11-13 18:04] LABS: Basophils % (auto) 0.4 % (0.0-2.0); Eosinophils % (auto) 0.8 % (0.0-7.0); Hematocrit 33.6 % (36.0-46.0); Hemoglobin 11.2 g/dL (12.2-16.2); Lymphocytes # (auto) 1.5 10 ^3/uL (0.4-5.4); Lymphocytes % (auto) 32.1 % (10.0-50.0); Mean Corpuscular Hemoglobin 26.6 pg (28.0-32.0); Mean Corpuscular Hgb Conc. 33.4 g/dL (32.0-36.0); Monocytes # (auto) 0.6 10 ^3/uL (0-1.3); Monocytes % (auto) 13.3 % (0.0-12.0); Neutrophils # (auto) 2.5 10 ^3/uL (1.6-8.6); Neutrophils % (auto) 53.4 % (37.0-80.0); Nucleated Red Blood Cells % 0.2 %; Platelet Count (auto) 333 10^3/uL (140-450); Red Blood Cells 4.22 10^6/uL (4.0-5.20); Red Cell Distribution Width 14.8 % (11.8-14.3)
--- NOTE | 2024-11-13 18:15 | DVHPN2 ---
Subjective The patient was doing fine in the morning on room air, her blood gas that was done last night showed a PO2 of 84 so she did not qualify for home O2 and therefore the plan was to send her home however after she received her morning medications which included losartan and metoprolol she became hypotensive and therefore she was given 250 mL bolus of normal saline and then she became more short of breaths and went into pulmonary edema, chest x-ray shows mild pulmonary venous congestion and therefore she was given oxygen with a high-flow and then with BiPAP and was given Lasix 40 mg IV, CTA of the chest was done showed no pulmonary embolism or pulmonary hypertension but it showed bibasilar pleural effusions with airspace disease and atelectasis in both lungs With the Lasix and the BiPAP she improved and then she was switched off to a face mask and the oxygen was taken down and she felt better Repeat blood gas showed a pH of 7.2 and PO2 of 83 and pCO2 of 41 indicating metabolic acidosis with no respiratory compensation Her labs in the morning looked normal Reviewed: Care Plan, H&P, Medications Changes from previous H/P or p: Changes Cardiovascular: Other (Low BP) Respiratory: Shortness of breath Objective Vitals Vital Signs Date Time Temp Pulse Resp B/P (MAP) Pulse Ox O2 Delivery O2 Flow Rate FiO2 11/13/24 17:34 98.7 67 18 120/57 (78) 99 98.7 11/13/24 14:55 Simple Mask* 10 99 Intake/Output Intake and Output 11/13/24 07:00 Intake Total 1300 ml Balance 1300 ml Intake Oral 1000 ml IV Total 300 ml # Voids 5 # Bowel Movements 1 General Appearance: Alert, Oriented X3, Cooperative, No acute distress, mild distress Lungs: Other (Diminished lung sounds. Currently on BiPAP) Cardiovascular: Regular rate, Normal S1, Normal S2 Abdomen: Normal bowel sounds, Soft, No tenderness, No hepatospenomegaly Extremities: No edema Medications Current Medications Medications Dose Ordered Sig/Sherice Route Start Time Stop Time Status Last Admin Dose Admin Atorvastatin Calcium 40 mg HS PO 11/09/24 22:00 11/12/24 23:44 40 MG Losartan Potassium 50 mg DAILY PO 11/10/24 10:00 11/13/24 08:50 50 MG Ondansetron HCl 4 mg Q4HP PRN IV 11/09/24 21:45 Acetaminophen 650 mg Q6HP PRN PO 11/09/24 21:45 Nitroglycerin 0.4 mg Q5MINP PRN SL 11/09/24 21:45 Morphine Sulfate 2 mg Q30M PRN IV 11/09/24 21:45 Albuterol 2.5 mg Q6HPRN PRN NEB 11/10/24 05:30 Cancel Flecainide Acetate 50 mg Q12HR PO 11/10/24 22:00 11/13/24 08:50 50 MG Ceftriaxone Sodium 50 ml @ 100 mls/hr DAILY@09 IV 11/11/24 09:00 11/13/24 08:51 100 MLS/HR Aspirin 81 mg DAILY PO 11/12/24 10:00 11/13/24 08:49 81 MG Metoprolol Succinate 25 mg DAILY PO 11/12/24 10:00 11/13/24 08:50 25 MG Diagnostic Test (Pha) 1 strip ACHS 11/13/24 17:00 11/13/24 17:13 1 STRIP Insulin Human Regular ACHS SC 11/13/24 17:00 11/13/24 17:13 8 UNITS Dextrose 50 ml UD PRN IV 11/13/24 12:00 Laboratory Results Laboratory Tests 11/13/24 06:14 Chemistry Test 11/13/24 06:14 Albumin 3.8 g/dL (3.2-4.8) Calcium Level 9.8 mg/dL (8.7-10.4) Total Protein 7.1 g/dL (5.7-8.2) Cardiac Markers Test 11/13/24 06:14 B-Type Natriuretic Peptide Pending LFT Test 11/13/24 06:14 Alanine Aminotransferase (ALT) 11 U/L (7-40) Alkaline Phosphatase 59 U/L (46-116) Aspartate Amino Transferase (AST) 9 U/L (13-40) L Total Bilirubin 0.7 mg/dL (0.2-1.0) Urinalysis Test 11/12/24 04:25 Urine Color Yellow (Yellow) Urine Clarity Clear (Clear) Urine pH 6.0 (5.0-9.0) Urine Specific [place] 1.021 (1.001-1.035) Urine Protein Negative (Negative) Urine Ketones Negative (Negative) Urine Blood Negative /uL (Negative) Urine Nitrite Negative (Negative) Urine Bilirubin Negative (Negative) Urine Urobilinogen Normal mg/dL (Negative) Urine Leukocyte Esterase 1+ /uL (Negative) Urine RBC 7 /hpf (0 - 4) Urine Microscopic WBC 4 /HPF (0-5) Urine Squamous Epithelial Cells Few /hpf (<5) Urine Bacteria None seen /hpf (None Seen) Urine Glucose Trace mg/dL (Normal) Blood Gas Results Test 11/12/24 23:09 11/13/24 12:36 Arterial Blood pH 7.526 (7.350-7.450) 7.274 (7.350-7.450) FiO2 % 21.0 60.0 Microbiology Microbiology Date/Time Source Procedure Growth Status 11/10/24 11:54 Nose MRSA Screen - Final Complete Assessment/Plan Assessment/Plan Troponin likely due to NSTEMI type 2 due to atrial fibrillation Paroxysmal atrial fibrillation Mild to moderate mitral regurgitation Type 2 diabetes Hypertension Peripheral arterial disease Osteomyelitis of the left 5th digit Mixed hyperlipidemia Viral pneumonitis versus pulmonary edema History of [id number]-[id number] amputation of the right leg Plan Continue Eliquis Continue flecainide Ceftriaxone for the osteomyelitis And azithromycin for possible viral pneumonitis Lipitor Insulin as needed Losartan Cardiology consult Echocardiogram reviewed from last admission She had a normal stress test last admission also Full code Advance directives discussed for 20 minutes 11/11/2024: Chest pain with shortness of breaths, rule out coronary artery disease, The patient was seen by Cardiology and she is scheduled to have a heart catheterization today or tomorrow Continue flecainide and Eliquis IV antibiotics for possible underlying pneumonitis Aspirin Atrial fibrillation: Echocardiogram and Cardiolite stress test were done 1 week ago reported negative Peripheral arterial disease mild 11/12/24: ABGs on room air pending Discharge planning once ABGs is done 11/13/2024: Flash pulmonary edema with pleural effusion and atelectasis Paroxysmal atrial fibrillation Hypertension Type 2 diabetes Mixed hyperlipidemia Osteomyelitis of the left 5th digit Possible underlying pneumonia Plan Continue Lasix IV Continue IV antibiotics Rocephin and add doxycycline IV Cardiology was contacted again to see the patient Pulmonary consultation Hold metoprolol and losartan Eliquis 5 mg b.i.d. Flecainide 50 mg twice a day Aspirin Lipitor Oxygen as needed Plan discussed with: Patient My Orders Orders - KRIS GONZALEZ MD Procedure Category Date Status Time Chest Xray 1 View XY 11/13/24 Resulted 10:[address] 11/13/24 Resulted Contrast 11:44 Glucose Blood PHA 11/13/24 In Process (Accu-Chek Comfort 17:00 Insulin R (Human) PHA 11/13/24 In Process (Insulin R) 17:00 Dextrose 50% Syringe PHA 11/13/24 In Process 12:00 Abg W/ Co-Ox RT 11/13/24 Logged 11:49 *Consult CONS 11/13/24 Transmitted / 11:49 BIPAP RT 11/13/24 Logged 12:15 Electrocardigram EKG 11/13/24 Logged 16:30 Date of Service: November 13, 2024 Billing Provider: KRIS GONZALEZ MD Common Visit Codes: [id number] INP/OBS CARE(HIGH) KRIS GONZALEZ MD November 13, 2024 18:15
--- NOTE | 2024-11-13 19:43 | DVHINCON2 ---
Date of service: November 13, 2024 Referring Physician Alondra Munguia MD Reason for Consultation Acute hypoxic respiratory failure, pulmonary edema, pneumonia and pleural effusions. History of Present Illness A 74-year-old woman with past medical history of AFib, hypertension, osteomyelitis and diabetes mellitus who presented to ED on 11/10/24 with complaints of shortness of breath and palpitations. Patient was recently admitted last week, diagnosed with AFib and was discharged with flecainide and Eliquis. She had a nuclear stress test done that did not reveal any evidence of ischemia. Patient developed sx again on day of presentation with palpitations and associated substernal chest pain and mild shortness of breath. Patient was admitted for further care. Pulmonary consultation is requested for evaluation and management of acute hypoxic respiratory failure, pulmonary edema, pneumonia and pleural effusions. Review of Systems: 14-point review of systems negative unless otherwise noted above. Past Medical History: AFib, hypertension, diabetes mellitus, osteomyelitis. Past Surgical History: Right BKA. Medications: Reviewed. Allergies: No known drug allergies. Family History: No family history of premature CAD. No family history of lung disorders. Social History: Nonsmoker. No alcohol or illicit drug use. Family History: Patient reports no known family medical history. Allergies: Coded Allergies: NO KNOWN ALLERGIES (Unverified , 11/03/24) Home Meds Active Scripts Metoprolol Succinate (Toprol Xl) 25 Mg Tab, 1 TAB PO DAILY, #30 TAB 5 Refills Prov:ALONDRA MUNGUIA MD 11/12/24 Doxycycline Monohydrate (Doxycycline Monohydrate) 100 Mg Cap, 1 CAP PO BID, #28 CAP Prov:ALONDRA MUNGUIA MD 11/06/24 Flecainide Acetate (TAMBOCOR TABLET) 50 Mg Tb, 50 MG PO Q12HR for 30 Days, #60 TAB 3 Refills Prov:ALONDRA MUNGUIA MD 11/06/24 Atorvastatin Calcium (Lipitor) 40 Mg Tab, 1 TAB PO QPM, #90 TAB 3 Refills Prov:ALONDRA MUNGUIA MD 11/06/24 Apixaban Base (ELIQUIS) 5 Mg Tab, 5 MG PO BID for 30 Days, #60 TAB 3 Refills Prov:ALONDRA MUNGUIA MD 11/06/24 Reported Medications Gabapentin (Gabapentin) 100 Mg Cap, 1 CAP PO TID, #90 CAP 1 Refill 11/10/24 Cholecalciferol (D-1000 EXTRA STRENGTH) 1,000 Unit Tab, 1000 UNIT PO, TAB 11/10/24 Losartan Potassium (Losartan Potassium) 50 Mg Tab, 1 TAB PO DAILY for 90 Days, #90 11/04/24 Metformin Hydrochloride (Metformin Hcl) 1,000 Mg Tab, 1 TAB PO BIDWM for 90 Days, #180 11/04/24 Insulin Glargine (Basaglar Kwikpen) 100 Unit/Ml Inj, 32 UNIT SC QAM for 28 Days, #9 11/04/24 Pioglitazone Hydrochloride (PIOGLITAZONE HCL) 15 Mg Tab, 1 TAB PO DAILY for 30 Days, #30 11/04/24 Omeprazole (Omeprazole Dr) 20 Mg Cap, 1 CAP PO QAM for 90 Days, #90 11/04/24 Sitagliptin Phosphate (Januvia) 50 Mg Tab, 1 TAB PO DAILY for 30 Days, #30 11/04/24 Current Medications Current Medications Medications (Trade) Dose Ordered Sig/Sherice Route PRN Reason Start Time Stop Time Status Last Admin Diagnostic Test (Pha) (Accu-Chek Comfort Curve T) 1 strip ACHS 11/13/24 17:00 11/13/24 17:13 Insulin Human Regular (InsuLIN R) ACHS SC 11/13/24 17:00 11/13/24 17:13 Dextrose 50 ml UD PRN IV Blood Sugar LESS THAN 60 11/13/24 12:00 Doxycycline Hyclate 100 ml @ 50 mls/hr Q12HR IV 11/13/24 18:15 Apixaban (Eliquis) 5 mg BID PO 11/13/24 22:00 Vital Signs Vital Signs Date Time Temp Pulse Resp B/P (MAP) Pulse Ox O2 Delivery O2 Flow Rate FiO2 11/13/24 17:34 98.7 67 18 120/57 (78) 99 98.7 11/13/24 14:55 Simple Mask* 10 99 Physical Exam Gen.: Patient lying in bed in no apparent distress. On BiPAP. Head: Normocephalic, atraumatic. Eyes: EOMI/PERRLA. Ears: Normal hearing. Normal anatomy. Neck/trachea: Trachea midline, supple. Nose: Normal external anatomy. Mouth: Moist mucous membranes. Chest: Decreased air entry bilaterally. No wheezing or rhonchi. Cardiovascular: Positive S1, positive S2. Regular rate and rhythm. Abdomen: Positive bowel sounds in all 4 quadrants. Soft, non-tender, non- distended. : Deferred. Rectal: Deferred. Skin: Warm, dry. Intact. Extremities: 2+ radial pulses bilaterally. No lower extremity edema. Right BKA. Neuro: Awake, alert, oriented x3. No gross motor or sensory deficits. Cranial nerves II through XII intact. Gait not assessed. Labs/Diagnostic Data Labs Test 11/13/24 16:29 11/13/24 12:36 11/13/24 06:14 11/12/24 06:10 Range/Units POC Glucose 341 H 70-106 mg/dl Blood Gas Specimen Type Arterial Blood Gas Sample Site Right brachial Blood Gas Patient Temperature 37.0 Arterial Blood Date Drawn [id number] Arterial Blood pH 7.274 L 7.350-7.450 Arterial Blood Partial Pressure CO2 41.1 32.0-45.0 mmHg Arterial Blood Partial Pressure O2 83.7 83.0-108.0 mmHg Arterial Blood HCO3 18.6 L 21.0-28.0 mmol/L Arterial Blood Oxygen Saturation 94.0 94.0-98.0 % Arterial Blood Base Excess -7.8 L -2.0-3.0 mmol/L Arterial Blood Oxyhemoglobin 92.8 L 94.0-98.0 % Arterial Blood Carboxyhemoglobin 0.9 0.5-1.5 % Arterial Blood Methemoglobin 0.4 0.0-1.5 % Valerio Test N/a Blood Gas Total Hemoglobin 13.70 12.0-16.0 g/dL Blood Gas Set Respiration Rate 12.0 Blood Gas Modality Mask - bipap FiO2 % 60.0 Blood Gas EPAP 5 Blood Gas IPAP 12 White Blood Count 4.6 4.4-10.8 10^3/uL Red Blood Count 4.22 4.0-5.20 10^6/uL Hemoglobin 11.2 L 12.2-16.2 g/dL Hematocrit 33.6 L 36.0-46.0 % Mean Corpuscular Volume 79.5 L 80.0-100.0 fL Mean Corpuscular Hemoglobin 26.6 L 28.0-32.0 pg Mean Corpuscular Hemoglobin Concent 33.4 32.0-36.0 g/dL Red Cell Distribution Width 14.8 H 11.8-14.3 % Platelet Count 333 140-450 10^3/uL Mean Platelet Volume 9.0 6.9-10.8 fL Neutrophils (%) (Auto) 53.4 37.0-80.0 % Lymphocytes (%) (Auto) 32.1 10.0-50.0 % Monocytes (%) (Auto) 13.3 H 0.0-12.0 % Eosinophils (%) (Auto) 0.8 0.0-7.0 % Basophils (%) (Auto) 0.4 0.0-2.0 % Neutrophils # (Auto) 2.5 1.6-8.6 10 ^3/uL Lymphocytes # (Auto) 1.5 0.4-5.4 10 ^3/uL Monocytes # (Auto) 0.6 0-1.3 10 ^3/uL Eosinophils # (Auto) 0 0-0.8 10 ^3/uL Basophils # (Auto) 0 0-0.2 10 ^3/uL Nucleated Red Blood Cells 0.2 % Sodium Level 141 136-145 mmol/L Potassium Level 4.3 3.5-5.1 mmol/L Chloride Level 107 98-107 mmol/L Carbon Dioxide Level 25 20-31 mmol/L Anion Gap 9 5-15 Blood Urea Nitrogen 17 9-23 mg/dL Creatinine 0.84 0.550-1.02 mg/dL Glomerular Filtration Rate Calc 73 >90 mL/min BUN/Creatinine Ratio 20.2 H 10.0-20.0 Serum Glucose 140 H 74-106 mg/dL Calcium Level 9.8 8.7-10.4 mg/dL Total Bilirubin 0.7 0.2-1.0 mg/dL Aspartate Amino Transferase (AST) 9 L 13-40 U/L Alanine Aminotransferase (ALT) 11 7-40 U/L Alkaline Phosphatase 59 46-116 U/L B-Type Natriuretic Peptide 150.21 0-100 pg/mL Total Protein 7.1 5.7-8.2 g/dL Albumin 3.8 3.2-4.8 g/dL Prothrombin Time 11.1 9.3-11.8 sec Prothrombin Time INR 1.05 0.9-1.15 Activated Partial Thromboplast Time 25.5 24.5-34.5 SEC Test 11/12/24 04:25 11/10/24 12:04 11/10/24 08:38 Range/Units Urine Color Yellow Yellow Urine Clarity Clear Clear Urine pH 6.0 5.0-9.0 Urine Specific [place] 1.021 1.001-1.035 Urine Protein Negative Negative Urine Ketones Negative Negative Urine Blood Negative Negative /uL Urine Nitrite Negative Negative Urine Bilirubin Negative Negative Urine Urobilinogen Normal Negative mg/dL Urine Leukocyte Esterase 1+ Negative /uL Urine RBC 7 0 - 4 /hpf Urine Microscopic WBC 4 0-5 /HPF Urine Squamous Epithelial Cells Few <5 /hpf Urine Bacteria None seen None Seen /hpf Urine Glucose Trace Normal mg/dL Influenza Type A Antigen Negative Negative Influenza Type B Antigen Negative Negative SARS-CoV-2 Antigen (Rapid) Negative NEGATIVE Troponin I High Sensitivity 65 *H </=34 ng/L Microbiology Date/Time Source Procedure Growth Status 11/10/24 11:54 Nose MRSA Screen - Final Complete Assessment Impression: Acute hypoxic respiratory failure Noninvasive ventilation Pulmonary edema Pneumonia likely gram negative/gram positive Atelectasis Trace bilateral pleural effusions Right BKA. Plan: Supplemental oxygen Titrate to keep O2 sats above 92%. Patient subsequently required BiPAP with IPAP 12, EPAP 5, and FiO2 60% Taper FiO2 as tolerated Monitor respiratory status closely CTA reviewed; no pulmonary embolism. Bilateral pleural effusions. Bilateral lower lobe opacities. Atelectasis. Antibiotics Stop Rocephin/Zithromax; start Levaquin Incentive spirometry Accu-Cheks, ISS. Diurese with Lasix as tolerated Monitor renal function. Monitor electrolytes. Supplement as necessary. Monitor ins and outs. DVT prophylaxis. Prognosis: Poor given patient's multiple co-morbidities. Condition: Critical Rest of plan per hospitalist and other consultants. A total of 35 minutes of critical care time was spent reviewing the patient record, examining the patient, making a diagnostic and therapeutic plan, discussing this plan with the medical personnel, following up on diagnostic studies and following the patient for clinical stability excluding any and all procedures. At least 50% of this time was spent in direct, [id number] contact. Thank you Dr. Munguia, for allowing me to participate in this patient's care. Further recommendations will depend on the patient's clinical course. Please do not hesitate to contact me if you have any questions or concerns. This medical document was created using an electronic medical record system with [employer] system. Although these documentations are being carefully reviewed, there may still be some phonetic and typographical changes. The errors are purely typographical, due to imperfection on the software program, and do not reflect any compromise in the patient's medical care. Plan discussed with: Patient, Other (ARNULFO Xie/Dr. Munguia) TIM MENDOZA MD November 13, 2024 19:43
[2024-11-13] MEDS: DOXYCYCLINE 100MG/100ML 100 ML IV SCH (21:52)
[2024-11-13] MEDS: APIXABAN 5 MG TAB PO SCH (21:52)
[2024-11-13] MEDS: FUROSEMIDE 20 MG/2 ML VIAL IV ONE (22:58)
[2024-11-14] VITALS (14 sets, daily range): BP systolic 104–122; BP diastolic 39–54; PULSE 64–87; RESP 16–18; TEMP 97.4–98.3; O2SAT 94–99
[2024-11-14 06:27] LABS: Basophils # (auto) 0 10 ^3/uL (0-0.2); Basophils % (auto) 0.6 % (0.0-2.0); Eosinophils # (auto) 0 10 ^3/uL (0-0.8); Eosinophils % (auto) 0.6 % (0.0-7.0); Hematocrit 32.2 % (36.0-46.0); Hemoglobin 10.9 g/dL (12.2-16.2); Lymphocytes # (auto) 1.7 10 ^3/uL (0.4-5.4); Lymphocytes % (auto) 25.7 % (10.0-50.0); Mean Corpuscular Hemoglobin 26.8 pg (28.0-32.0); Mean Corpuscular Hgb Conc. 33.8 g/dL (32.0-36.0); Mean Corpuscular Volume 79.4 fL (80.0-100.0); Monocytes # (auto) 0.8 10 ^3/uL (0-1.3); Monocytes % (auto) 11.8 % (0.0-12.0); Neutrophils # (auto) 3.9 10 ^3/uL (1.6-8.6); Neutrophils % (auto) 61.3 % (37.0-80.0); Platelet Count (auto) 340 10^3/uL (140-450); Red Blood Cells 4.05 10^6/uL (4.0-5.20); Red Cell Distribution Width 15.1 % (11.8-14.3); White Blood Cell 6.4 10^3/uL (4.4-10.8)
[2024-11-14 06:43] LABS: Alanine Aminotransferase 19 U/L (7-40); Albumin 3.4 g/dL (3.2-4.8); Alkaline Phosphatase 55 U/L (46-116); Anion Gap 8 (5-15); Aspartate Aminotransferase 22 U/L (13-40); BUN/Creatinine Ratio 23.2 (10.0-20.0); Calcium 9.3 mg/dL (8.7-10.4); Carbon Dioxide 25 mmol/L (20-31); Chloride 105 mmol/L (98-107); Magnesium 1.9 mg/dL (1.6-2.6); Potassium 4.3 mmol/L (3.5-5.1); Sodium 138 mmol/L (136-145); Total Protein 6.5 g/dL (5.7-8.2)
[2024-11-14 06:44] LABS: Bilirubin, Total 0.6 mg/dL (0.2-1.0)
[2024-11-14 06:48] LABS: Blood Urea Nitrogen 26 mg/dL (9-23); Glucose 166 mg/dL (74-106)
[2024-11-14] MEDS: FUROSEMIDE 20 MG TAB PO SCH (09:58)
--- NOTE | 2024-11-14 13:01 | DVHPN2 ---
Subjective She is doing better Lungs are clear She was on 8 L face mask this morning, we lowered the to 5 L and she was still saturating 100% and therefore we lower the further to 4 L nasal cannula Reviewed: Care Plan, H&P, Medications Changes from previous H/P or p: Changes Cardiovascular: Other (Low BP) Respiratory: Shortness of breath Objective Vitals Vital Signs Date Time Temp Pulse Resp B/P (MAP) Pulse Ox O2 Delivery O2 Flow Rate FiO2 11/14/24 09:58 115/51 11/14/24 09:18 97.7 72 18 99 97.7 11/14/24 08:15 Room Air* 0 21 Intake/Output Intake and Output 11/14/24 07:00 Intake Total 1136 ml Output Total 1 ml Balance 1135 ml Intake Oral 1136 ml Urine/Stool Mix 1 ml # Voids 1 # Bowel Movements 1 General Appearance: Alert, Oriented X3, Cooperative, No acute distress, mild distress Lungs: Other (Diminished lung sounds. Currently on BiPAP) Cardiovascular: Regular rate, Normal S1, Normal S2 Abdomen: Normal bowel sounds, Soft, No tenderness, No hepatospenomegaly Extremities: No edema Medications Current Medications Medications Dose Ordered Sig/Sherice Route Start Time Stop Time Status Last Admin Dose Admin Atorvastatin Calcium 40 mg HS PO 11/09/24 22:00 11/13/24 21:51 40 MG Ondansetron HCl 4 mg Q4HP PRN IV 11/09/24 21:45 Acetaminophen 650 mg Q6HP PRN PO 11/09/24 21:45 Nitroglycerin 0.4 mg Q5MINP PRN SL 11/09/24 21:45 Morphine Sulfate 2 mg Q30M PRN IV 11/09/24 21:45 Albuterol 2.5 mg Q6HPRN PRN NEB 11/10/24 05:30 Cancel Flecainide Acetate 50 mg Q12HR PO 11/10/24 22:00 11/14/24 09:58 50 MG Ceftriaxone Sodium 50 ml @ 100 mls/hr DAILY@09 IV 11/11/24 09:00 11/14/24 09:49 100 MLS/HR Aspirin 81 mg DAILY PO 11/12/24 10:00 11/14/24 09:58 81 MG Diagnostic Test (Pha) 1 strip ACHS 11/13/24 17:00 11/14/24 11:32 1 STRIP Insulin Human Regular ACHS SC 11/13/24 17:00 11/14/24 11:32 10 UNITS Dextrose 50 ml UD PRN IV 11/13/24 12:00 Doxycycline Hyclate 100 ml @ 50 mls/hr Q12HR IV 11/13/24 18:15 11/14/24 09:54 50 MLS/HR Apixaban 5 mg BID PO 11/13/24 22:00 11/14/24 09:57 5 MG Furosemide 20 mg DAILY PO 11/14/24 10:00 11/14/24 09:58 20 MG Laboratory Results Laboratory Tests 11/14/24 04:28 Chemistry Test 11/14/24 04:28 Albumin 3.4 g/dL (3.2-4.8) Calcium Level 9.3 mg/dL (8.7-10.4) Magnesium Level 1.9 mg/dL (1.6-2.6) Total Protein 6.5 g/dL (5.7-8.2) LFT Test 11/14/24 04:28 Alanine Aminotransferase (ALT) 19 U/L (7-40) Alkaline Phosphatase 55 U/L (46-116) Aspartate Amino Transferase (AST) 22 U/L (13-40) Total Bilirubin 0.6 mg/dL (0.2-1.0) Urinalysis Test 11/12/24 04:25 Urine Color Yellow (Yellow) Urine Clarity Clear (Clear) Urine pH 6.0 (5.0-9.0) Urine Specific [place] 1.021 (1.001-1.035) Urine Protein Negative (Negative) Urine Ketones Negative (Negative) Urine Blood Negative /uL (Negative) Urine Nitrite Negative (Negative) Urine Bilirubin Negative (Negative) Urine Urobilinogen Normal mg/dL (Negative) Urine Leukocyte Esterase 1+ /uL (Negative) Urine RBC 7 /hpf (0 - 4) Urine Microscopic WBC 4 /HPF (0-5) Urine Squamous Epithelial Cells Few /hpf (<5) Urine Bacteria None seen /hpf (None Seen) Urine Glucose Trace mg/dL (Normal) Microbiology Microbiology Date/Time Source Procedure Growth Status 11/10/24 11:54 Nose MRSA Screen - Final Complete Assessment/Plan Assessment/Plan Troponin likely due to NSTEMI type 2 due to atrial fibrillation Paroxysmal atrial fibrillation Mild to moderate mitral regurgitation Type 2 diabetes Hypertension Peripheral arterial disease Osteomyelitis of the left 5th digit Mixed hyperlipidemia Viral pneumonitis versus pulmonary edema History of [id number] amputation of the right leg Plan Continue Eliquis Continue flecainide Ceftriaxone for the osteomyelitis And azithromycin for possible viral pneumonitis Lipitor Insulin as needed Losartan Cardiology consult Echocardiogram reviewed from last admission She had a normal stress test last admission also Full code Advance directives discussed for 20 minutes 11/11/2024: Chest pain with shortness of breaths, rule out coronary artery disease, The patient was seen by Cardiology and she is scheduled to have a heart catheterization today or tomorrow Continue flecainide and Eliquis IV antibiotics for possible underlying pneumonitis Aspirin Atrial fibrillation: Echocardiogram and Cardiolite stress test were done 1 week ago reported negative Peripheral arterial disease mild 11/12/24: ABGs on room air pending Discharge planning once ABGs is done 11/13/2024: Flash pulmonary edema with pleural effusion and atelectasis Paroxysmal atrial fibrillation Hypertension Type 2 diabetes Mixed hyperlipidemia Osteomyelitis of the left 5th digit Possible underlying pneumonia Plan Continue Lasix IV Continue IV antibiotics Rocephin and add doxycycline IV Cardiology was contacted again to see the patient Pulmonary consultation Hold metoprolol and losartan Eliquis 5 mg b.i.d. Flecainide 50 mg twice a day Aspirin Lipitor Oxygen as needed 11/14/2024: Pulmonary edema: Resolved, continue Lasix 20 mg p.o. daily Repeat the echocardiogram CTA of the chest showed no PE Continue IV antibiotics for the pneumonia Continue Eliquis and flecainide Hold metoprolol due to hypotension Med neb treatments p.r.n. Oxygen as needed Out of bed as tolerated Continue aspirin and Lipitor Plan discussed with: Patient My Orders Orders - KRIS GONZALEZ MD Procedure Category Date Status Time BIPAP RT 11/13/24 Logged 12:15 Electrocardigram EKG 11/13/24 Logged 16:30 Doxycycline PHA 11/13/24 In Process 100mg/100ml 18:15 Apixaban (Eliquis) PHA 11/13/24 In Process 22:00 Furosemide Tablet PHA 11/14/24 In Process (Lasix Tablet) 10:00 Echo 2d Mode Cardiac US 11/14/24 Logged DOP 09:57 Date of Service: November 14, 2024 Billing Provider: KRIS GONZALEZ MD Common Visit Codes: [id number] INP/OBS CARE(HIGH) MIDOU,WAHID MD November 14, 2024 13:01
--- NOTE | 2024-11-14 13:27 | DVHPN2 ---
Subjective Denies chest pain or shortness of breath No cardiac events reported Reviewed: Care Plan, H&P, Medications Changes from previous H/P or p: No Changes Cardiovascular: Other Respiratory: Shortness of breath Objective Vitals Vital Signs Date Time Temp Pulse Resp B/P (MAP) Pulse Ox O2 Delivery O2 Flow Rate FiO2 11/14/24 13:17 97.6 73 18 122/48 (72) 98 97.6 11/14/24 08:15 Room Air* 0 21 Intake/Output Intake and Output 11/14/24 07:00 Intake Total 1136 ml Output Total 1 ml Balance 1135 ml Intake Oral 1136 ml Urine/Stool Mix 1 ml # Voids 1 # Bowel Movements 1 General Appearance: Alert, Oriented X3, Cooperative, No acute distress, mild distress Lungs: Other Cardiovascular: Regular rate, Normal S1, Normal S2 Abdomen: Normal bowel sounds, Soft, No tenderness, No hepatospenomegaly Extremities: No edema Medications Current Medications Medications Dose Ordered Sig/Sherice Route Start Time Stop Time Status Last Admin Dose Admin Atorvastatin Calcium 40 mg HS PO 11/09/24 22:00 11/13/24 21:51 40 MG Ondansetron HCl 4 mg Q4HP PRN IV 11/09/24 21:45 Acetaminophen 650 mg Q6HP PRN PO 11/09/24 21:45 Nitroglycerin 0.4 mg Q5MINP PRN SL 11/09/24 21:45 Morphine Sulfate 2 mg Q30M PRN IV 11/09/24 21:45 Albuterol 2.5 mg Q6HPRN PRN NEB 11/10/24 05:30 Cancel Flecainide Acetate 50 mg Q12HR PO 11/10/24 22:00 11/14/24 09:58 50 MG Ceftriaxone Sodium 50 ml @ 100 mls/hr DAILY@09 IV 11/11/24 09:00 11/14/24 09:49 100 MLS/HR Aspirin 81 mg DAILY PO 11/12/24 10:00 11/14/24 09:58 81 MG Diagnostic Test (Pha) 1 strip ACHS 11/13/24 17:00 11/14/24 11:32 1 STRIP Insulin Human Regular ACHS SC 11/13/24 17:00 11/14/24 11:32 10 UNITS Dextrose 50 ml UD PRN IV 11/13/24 12:00 Doxycycline Hyclate 100 ml @ 50 mls/hr Q12HR IV 11/13/24 18:15 11/14/24 09:54 50 MLS/HR Apixaban 5 mg BID PO 11/13/24 22:00 11/14/24 09:57 5 MG Furosemide 20 mg DAILY PO 11/14/24 10:00 11/14/24 09:58 20 MG Albuterol 2.5 mg Q4HPRN PRN NEB 11/14/24 13:00 Magnesium Oxide 800 mg DAILY PO 11/15/24 10:00 Laboratory Results Laboratory Tests 11/14/24 04:28 Chemistry Test 11/14/24 04:28 Albumin 3.4 g/dL (3.2-4.8) Calcium Level 9.3 mg/dL (8.7-10.4) Magnesium Level 1.9 mg/dL (1.6-2.6) Total Protein 6.5 g/dL (5.7-8.2) LFT Test 11/14/24 04:28 Alanine Aminotransferase (ALT) 19 U/L (7-40) Alkaline Phosphatase 55 U/L (46-116) Aspartate Amino Transferase (AST) 22 U/L (13-40) Total Bilirubin 0.6 mg/dL (0.2-1.0) Urinalysis Test 11/12/24 04:25 Urine Color Yellow (Yellow) Urine Clarity Clear (Clear) Urine pH 6.0 (5.0-9.0) Urine Specific [place] 1.021 (1.001-1.035) Urine Protein Negative (Negative) Urine Ketones Negative (Negative) Urine Blood Negative /uL (Negative) Urine Nitrite Negative (Negative) Urine Bilirubin Negative (Negative) Urine Urobilinogen Normal mg/dL (Negative) Urine Leukocyte Esterase 1+ /uL (Negative) Urine RBC 7 /hpf (0 - 4) Urine Microscopic WBC 4 /HPF (0-5) Urine Squamous Epithelial Cells Few /hpf (<5) Urine Bacteria None seen /hpf (None Seen) Urine Glucose Trace mg/dL (Normal) Microbiology Microbiology Date/Time Source Procedure Growth Status 11/10/24 11:54 Nose MRSA Screen - Final Complete Assessment/Plan Assessment/Plan Problem List/Assessment/Plan Non ST-elevation myocardial infarction s/p LHC with no CAD Paroxysmal atrial fibrillation, Stage III, now NSR, recently diagnosed Diabetic ulcer to left 5th toe with mild peripheral arterial disease Mitral insufficiency, [id number] Insulin-dependent diabetes mellitus Hypertension Dyslipidemia Right BKA Plan/Recommendation (Dr. Mackay) 11/14/24 -Pulmonary embolism has been ruled out. Likely acute diastolic heart failure, recommend to continue furosemide, start on Jardiance and spironolactone if BP allows. 11/13/24 -- acute respiratory failure with hypoxemia, currently on BiPAP. Should rule out PE -pending CTA. Monitor BP closely. Pulmonary edema -IV diuresis * Echocardiogram revealed LVEF 60% with normal RV function * Cardiolite stress test rule out coronary ischemic * Preliminary, non-ischemic as reviewed by Dr. Mackay * Left lower extremity peripheral arterial duplex: mild PAD at 30-49% * Continue single-antiplatelet therapy and lipid-lowering agent * Rate control, metoprolol XL. Uptitrate as tolerated * Patient not sent home on BB on last admission * Antiarrhythmic therapy, initiate low-dose Flecainide * DOAC therapy, Eliquis: hold given interventional procedure * [id number] Score 4 points. HAS-BLED Score 1 point * Replete electrolytes as necessary, K>4 and Mg>2 * Follow-up with Dr. Mackay on 11/19/2024 at 0900 * Information provided to grand-daughter at bedside The patient underwent a cardiac catheterization without catheter based intervention given normal coronaries. Continue Eliquis, metoprolol XL, and Flecainide therapy. Follow up with Dr. Mackay as scheduled on 11/19/2024 at 0900. Kindly call with any questions or concerns. We will sign off at this time. Thank you for allowing us to participate in this patient's care. This medical document was created using an electronic medical record system with voice recognition software and computerized dictation system. Although this document has been carefully reviewed, there might still be some phonetic and typographical errors. Occasional wrong-word or ``sound-alike substitutions may have occurred due to the inherent limitations of voice recognition software. These areas are purely typographical due to imperfections of the software programs and do not reflect any compromise in the patient's medical care. Please read the chart carefully and recognize, using context, where these substitutions have occurred. Plan discussed with: Patient, Daughter, Other Plan discussed with: Patient, Daughter Date of Service: November 14, 2024 Billing Provider: JOHN MACKAY Sr., MD Common Visit Codes: CONSULT ONLY Consultation Codes: [id number] CONSULT <60MIN [employer]I [employer] November 14, 2024 13:27
[2024-11-14] MEDS: MAGNESIUM OXIDE 400 MG TAB PO ONE (14:20)
[2024-11-14] MEDS: ALBUTEROL SULF 2.5 MG/0.5ML(0.5%) NEB SOLN NEB PRN (17:50)
--- NOTE | 2024-11-14 23:01 | DVHPN2 ---
Progress Note - Dictate Date Seen: November 14, 2024 Medical Necessity Reason Pt with a Central, PICC or Fol: No Subjective Patient seen and examined at bedside. Remains on supplemental oxygen Overnight events reviewed. vital signs Vital Sign Date Time Temp Pulse Resp B/P (MAP) Pulse Ox O2 Delivery O2 Flow Rate FiO2 11/14/24 22:32 68 18 97 11/14/24 22:21 Nasal Cannula 2.0 11/14/24 22:21 28 11/14/24 21:00 98.3 119/50 (73) 98.3 Total Intake and Output 11/13/24 11/13/24 11/14/24 15:00 23:00 07:00 Intake Total 545 ml 591 ml Output Total 1 ml Balance 545 ml 590 ml medications Current Medications Medications Dose Ordered Sig/Sherice Route Start Time Stop Time Status Last Admin Dose Admin Atorvastatin Calcium 40 mg HS PO 11/09/24 22:00 11/14/24 21:13 40 MG Ondansetron HCl 4 mg Q4HP PRN IV 11/09/24 21:45 Acetaminophen 650 mg Q6HP PRN PO 11/09/24 21:45 Nitroglycerin 0.4 mg Q5MINP PRN SL 11/09/24 21:45 Morphine Sulfate 2 mg Q30M PRN IV 11/09/24 21:45 Albuterol 2.5 mg Q6HPRN PRN NEB 11/10/24 05:30 Cancel Flecainide Acetate 50 mg Q12HR PO 11/10/24 22:00 11/14/24 21:13 50 MG Ceftriaxone Sodium 50 ml @ 100 mls/hr DAILY@09 IV 11/11/24 09:00 11/14/24 09:49 100 MLS/HR Aspirin 81 mg DAILY PO 11/12/24 10:00 11/14/24 09:58 81 MG Diagnostic Test (Pha) 1 strip ACHS 11/13/24 17:00 11/14/24 21:23 1 STRIP Insulin Human Regular ACHS SC 11/13/24 17:00 11/14/24 21:23 8 UNITS Dextrose 50 ml UD PRN IV 11/13/24 12:00 Doxycycline Hyclate 100 ml @ 50 mls/hr Q12HR IV 11/13/24 18:15 11/14/24 21:13 50 MLS/HR Apixaban 5 mg BID PO 11/13/24 22:00 11/14/24 21:13 5 MG Furosemide 20 mg DAILY PO 11/14/24 10:00 11/14/24 09:58 20 MG Albuterol 2.5 mg Q4HPRN PRN NEB 11/14/24 13:00 11/14/24 22:25 2.5 MG Magnesium Oxide 800 mg DAILY PO 11/15/24 10:00 objective Gen.: Patient lying in bed in no apparent distress. On supplemental oxygen. Head: Normocephalic, atraumatic. Eyes: EOMI/PERRLA. Ears: Normal hearing. Normal anatomy. Neck/trachea: Trachea midline, supple. Nose: Normal external anatomy. Mouth: Moist mucous membranes. Chest: Decreased air entry bilaterally. No wheezing or rhonchi. Cardiovascular: Positive S1, positive S2. Regular rate and rhythm. Abdomen: Positive bowel sounds in all 4 quadrants. Soft, non-tender, non- distended. : Deferred. Rectal: Deferred. Skin: Warm, dry. Intact. Extremities: 2+ radial pulses bilaterally. No lower extremity edema. Right BKA. Neuro: Awake, alert, oriented x3. No gross motor or sensory deficits. Cranial nerves II through XII intact. Gait not assessed. laboratory and microbiology Laboratory Tests 11/14/24 04:28 Test 11/14/24 04:28 Range/Units Serum Glucose 166 H 74-106 mg/dL Assessment/Plan Impression: Acute hypoxic respiratory failure Noninvasive ventilation Pulmonary edema Pneumonia Atelectasis Trace bilateral pleural effusions S/p right BKA. Events: Transitioned off BiPAP Currently on supplemental oxygen, 8 LPM simple mask Placed on mask due to mouth breathing. Taper O2 as tolerated Continue antibiotics Incentive spirometry Diurese to achieve euvolemia Monitor renal function. Monitor electrolytes. Supplement as necessary. Monitor ins and outs. Labs and imaging reviewed. Rest of plan as noted below. Plan: Supplemental oxygen Titrate to keep O2 sats above 92%. CTA reviewed; no pulmonary embolism. Bilateral pleural effusions. Bilateral lower lobe opacities. Atelectasis. Antibiotics Incentive spirometry Accu-Cheks, ISS. Diurese with Lasix as tolerated Monitor renal function. Monitor electrolytes. Supplement as necessary. Monitor ins and outs. DVT prophylaxis. Prognosis: Poor given patient's multiple co-morbidities. Rest of plan per hospitalist and other consultants. Thank you Dr. Munguia, for allowing me to participate in this patient's care. Further recommendations will depend on the patient's clinical course. Please do not hesitate to contact me if you have any questions or concerns. This medical document was created using an electronic medical record system with [employer] dictation system. Although these documentations are being carefully reviewed, there may still be some phonetic and typographical changes. The errors are purely typographical, due to imperfection on the software program, and do not reflect any compromise in the patient's medical care. Plan discussed with: Patient, Other (ARNULFO Hernandez) TIM MENDOZA MD November 14, 2024 23:01
[2024-11-15] VITALS (9 sets, daily range): BP systolic 121–152; BP diastolic 47–75; PULSE 75–99; RESP 17–20; TEMP 97.5–98.5; O2SAT 92–99
[2024-11-15 06:13] LABS: Anion Gap 8 (5-15); Carbon Dioxide 26 mmol/L (20-31); Chloride 105 mmol/L (98-107); Sodium 139 mmol/L (136-145)
[2024-11-15 06:14] LABS: Calcium 9.2 mg/dL (8.7-10.4)
[2024-11-15 06:19] LABS: BUN/Creatinine Ratio 22.5 (10.0-20.0)
[2024-11-15 06:23] LABS: Blood Urea Nitrogen 23 mg/dL (9-23); Glucose 268 mg/dL (74-106)
[2024-11-15] MEDS: MAGNESIUM OXIDE 400 MG TAB PO SCH (09:25)
--- NOTE | 2024-11-15 11:39 | DVHPN2 ---
Progress Note - Dictate Date Seen: November 15, 2024 Medical Necessity Reason Pt with a Central, PICC or Fol: No vital signs Vital Sign Date Time Temp Pulse Resp B/P (MAP) Pulse Ox O2 Delivery O2 Flow Rate FiO2 11/15/24 09:31 121/61 11/15/24 08:32 98.4 79 18 96 98.4 11/15/24 08:00 Nasal Cannula* 2 28 Total Intake and Output 11/14/24 11/14/24 11/15/24 15:00 23:00 07:00 Intake Total 150 ml 725 ml 781 ml Balance 150 ml 725 ml 781 ml medications Current Medications Medications Dose Ordered Sig/Sherice Route Start Time Stop Time Status Last Admin Dose Admin Atorvastatin Calcium 40 mg HS PO 11/09/24 22:00 11/14/24 21:13 40 MG Ondansetron HCl 4 mg Q4HP PRN IV 11/09/24 21:45 Acetaminophen 650 mg Q6HP PRN PO 11/09/24 21:45 Nitroglycerin 0.4 mg Q5MINP PRN SL 11/09/24 21:45 Morphine Sulfate 2 mg Q30M PRN IV 11/09/24 21:45 Albuterol 2.5 mg Q6HPRN PRN NEB 11/10/24 05:30 Cancel Flecainide Acetate 50 mg Q12HR PO 11/10/24 22:00 11/15/24 09:25 50 MG Ceftriaxone Sodium 50 ml @ 100 mls/hr DAILY@09 IV 11/11/24 09:00 11/15/24 08:26 100 MLS/HR Aspirin 81 mg DAILY PO 11/12/24 10:00 11/15/24 09:25 81 MG Diagnostic Test (Pha) 1 strip ACHS 11/13/24 17:00 11/15/24 11:32 1 STRIP Insulin Human Regular ACHS SC 11/13/24 17:00 11/15/24 11:32 8 UNITS Dextrose 50 ml UD PRN IV 11/13/24 12:00 Doxycycline Hyclate 100 ml @ 50 mls/hr Q12HR IV 11/13/24 18:15 11/15/24 09:26 50 MLS/HR Apixaban 5 mg BID PO 11/13/24 22:00 11/15/24 09:25 5 MG Furosemide 20 mg DAILY PO 11/14/24 10:00 11/15/24 09:31 20 MG Albuterol 2.5 mg Q4HPRN PRN NEB 11/14/24 13:00 11/14/24 22:25 2.5 MG Magnesium Oxide 800 mg DAILY PO 11/15/24 10:00 11/15/24 09:25 800 MG laboratory and microbiology Laboratory Tests 11/15/24 04:59 11/14/24 04:28 Test 11/15/24 04:59 Range/Units Serum Glucose 268 H 74-106 mg/dL Assessment/Plan Impression: Acute hypoxic respiratory failure Noninvasive ventilation Pulmonary edema Pneumonia Atelectasis Pleural effusions Patient seen and examined Events: Low oxygen requirements On 2 liters nasal cannula No acute events Labs and imaging reviewed CTA reviewed; no pulmonary embolism. Bilateral pleural effusions. Bilateral lower lobe opacities. Atelectasis. Plan: Supplemental oxygen Titrate to keep O2 sats above 92% Incentive spirometry Prn bipap Continue antibiotics F/u culture Diurese Monitor renal function Monitor electrolytes Supplement as necessary Monitor ins and outs Glycemic control Accu-Cheks, ISS. DVT prophylaxis Plan discussed with: Patient RICARDO EDMONDSON MD November 15, 2024 11:39
--- NOTE | 2024-11-15 14:41 | DVHPN2 ---
Subjective She is feeling better Her oxygen saturation is 100% on 2 L nasal cannula She says her cough and shortness of breaths is better Chest x-ray was just done shows less congestion Repeat echocardiogram was done yesterday is still pending Reviewed: Care Plan, H&P, Medications Changes from previous H/P or p: Changes Cardiovascular: Other Respiratory: Shortness of breath Objective Vitals Vital Signs Date Time Temp Pulse Resp B/P (MAP) Pulse Ox O2 Delivery O2 Flow Rate FiO2 11/15/24 12:38 97.5 81 18 127/75 (92) 99 97.5 11/15/24 08:00 Nasal Cannula* 2 28 Intake/Output Intake and Output 11/15/24 07:00 Intake Total 1656 ml Balance 1656 ml Intake Oral 1406 ml IV Total 250 ml # Voids 5 General Appearance: Alert, Oriented X3, Cooperative, No acute distress, mild distress Lungs: Clear to auscultation, Normal air movement, Other Cardiovascular: Regular rate, Normal S1, Normal S2 Abdomen: Normal bowel sounds, Soft, No tenderness, No hepatospenomegaly Extremities: No edema Medications Current Medications Medications Dose Ordered Sig/Sherice Route Start Time Stop Time Status Last Admin Dose Admin Atorvastatin Calcium 40 mg HS PO 11/09/24 22:00 11/14/24 21:13 40 MG Ondansetron HCl 4 mg Q4HP PRN IV 11/09/24 21:45 Acetaminophen 650 mg Q6HP PRN PO 11/09/24 21:45 Nitroglycerin 0.4 mg Q5MINP PRN SL 11/09/24 21:45 Morphine Sulfate 2 mg Q30M PRN IV 11/09/24 21:45 Albuterol 2.5 mg Q6HPRN PRN NEB 11/10/24 05:30 Cancel Flecainide Acetate 50 mg Q12HR PO 11/10/24 22:00 11/15/24 09:25 50 MG Ceftriaxone Sodium 50 ml @ 100 mls/hr DAILY@09 IV 11/11/24 09:00 11/15/24 08:26 100 MLS/HR Aspirin 81 mg DAILY PO 11/12/24 10:00 11/15/24 09:25 81 MG Diagnostic Test (Pha) 1 strip ACHS 11/13/24 17:00 11/15/24 11:32 1 STRIP Insulin Human Regular ACHS SC 11/13/24 17:00 11/15/24 11:32 8 UNITS Dextrose 50 ml UD PRN IV 11/13/24 12:00 Doxycycline Hyclate 100 ml @ 50 mls/hr Q12HR IV 11/13/24 18:15 11/15/24 09:26 50 MLS/HR Apixaban 5 mg BID PO 11/13/24 22:00 11/15/24 09:25 5 MG Furosemide 20 mg DAILY PO 11/14/24 10:00 11/15/24 09:31 20 MG Albuterol 2.5 mg Q4HPRN PRN NEB 11/14/24 13:00 11/14/24 22:25 2.5 MG Magnesium Oxide 800 mg DAILY PO 11/15/24 10:00 11/15/24 09:25 800 MG Laboratory Results Laboratory Tests 11/14/24 04:28 11/15/24 04:59 Chemistry Test 11/15/24 04:59 Calcium Level 9.2 mg/dL (8.7-10.4) Urinalysis Test 11/12/24 04:25 Urine Color Yellow (Yellow) Urine Clarity Clear (Clear) Urine pH 6.0 (5.0-9.0) Urine Specific [place] 1.021 (1.001-1.035) Urine Protein Negative (Negative) Urine Ketones Negative (Negative) Urine Blood Negative /uL (Negative) Urine Nitrite Negative (Negative) Urine Bilirubin Negative (Negative) Urine Urobilinogen Normal mg/dL (Negative) Urine Leukocyte Esterase 1+ /uL (Negative) Urine RBC 7 /hpf (0 - 4) Urine Microscopic WBC 4 /HPF (0-5) Urine Squamous Epithelial Cells Few /hpf (<5) Urine Bacteria None seen /hpf (None Seen) Urine Glucose Trace mg/dL (Normal) Microbiology Microbiology Date/Time Source Procedure Growth Status 11/10/24 11:54 Nose MRSA Screen - Final Complete Assessment/Plan Assessment/Plan Troponin likely due to NSTEMI type 2 due to atrial fibrillation Paroxysmal atrial fibrillation Mild to moderate mitral regurgitation Type 2 diabetes Hypertension Peripheral arterial disease Osteomyelitis of the left 5th digit Mixed hyperlipidemia Viral pneumonitis versus pulmonary edema History of [id number] amputation of the right leg Plan Continue Eliquis Continue flecainide Ceftriaxone for the osteomyelitis And azithromycin for possible viral pneumonitis Lipitor Insulin as needed Losartan Cardiology consult Echocardiogram reviewed from last admission She had a normal stress test last admission also Full code Advance directives discussed for 20 minutes 11/11/2024: Chest pain with shortness of breaths, rule out coronary artery disease, The patient was seen by Cardiology and she is scheduled to have a heart catheterization today or tomorrow Continue flecainide and Eliquis IV antibiotics for possible underlying pneumonitis Aspirin Atrial fibrillation: Echocardiogram and Cardiolite stress test were done 1 week ago reported negative Peripheral arterial disease mild 11/12/24: ABGs on room air pending Discharge planning once ABGs is done 11/13/2024: Flash pulmonary edema with pleural effusion and atelectasis Paroxysmal atrial fibrillation Hypertension Type 2 diabetes Mixed hyperlipidemia Osteomyelitis of the left 5th digit Possible underlying pneumonia Plan Continue Lasix IV Continue IV antibiotics Rocephin and add doxycycline IV Cardiology was contacted again to see the patient Pulmonary consultation Hold metoprolol and losartan Eliquis 5 mg b.i.d. Flecainide 50 mg twice a day Aspirin Lipitor Oxygen as needed 11/14/2024: Pulmonary edema: Resolved, continue Lasix 20 mg p.o. daily Repeat the echocardiogram CTA of the chest showed no PE Continue IV antibiotics for the pneumonia Continue Eliquis and flecainide Hold metoprolol due to hypotension Med neb treatments p.r.n. Oxygen as needed Out of bed as tolerated Continue aspirin and Lipitor 11/15/2024: Pulmonary edema: Improved, continue Lasix p.o. Echocardiogram is pending Chest x-ray shows improved congestion Continue Eliquis and flecainide Lipitor Aspirin Med neb treatments as needed Rocephin and doxycycline IV Discussed with the daughter at the bedside Monitor closely Start physical therapy and ambulate as tolerated for preparation for discharge in the next 1-2 day Plan discussed with: Patient, Daughter My Orders Orders - KRIS GONZALEZ MD Procedure Category Date Status Time Chest Portable XY 11/15/24 Taken 13:10 Date of Service: November 15, 2024 Billing Provider: KRIS GONZALEZ MD Common Visit Codes: [id number] INP/OBS CARE(HIGH) KRIS GONZALEZ MD November 15, 2024 14:41
--- NOTE | 2024-11-15 14:57 | ECG ---
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
--- NOTE | 2024-11-15 15:25 | DVH ---
INDICATION: SOB TECHNIQUE: Frontal view of the chest. COMPARISON: XY CHEST XRAY 1 VIEW on DOS: 11/13/24, XY CHEST PORTABLE on DOS: 11/09/24, XY CHEST PORTABL E on DOS: 11/03/24 FINDINGS: Finding:. The heart and mediastinal contours are grossly unremarkable. There is no evidence of pleur al disease. The lungs are clear. The bony structures of the chest are intact without fracture. IMPRESSION: 1. No evidence of acute disease.
[2024-11-15] MEDS: INSULIN LANTUS (GLARGINE) 1 /0.01ml (100units/ml) SC ONE (17:21)
[2024-11-15] MEDS: INSULIN LANTUS (GLARGINE) 1 /0.01ml (100units/ml) SC SCH (22:14)
[2024-11-16] VITALS (12 sets, daily range): BP systolic 123–143; BP diastolic 42–85; PULSE 43–86; RESP 16–20; TEMP 98–98.8; O2SAT 93–98
--- NOTE | 2024-11-16 12:30 | DVHPN2 ---
Subjective She is better She is on room air now Reviewed: Care Plan, H&P, Medications Changes from previous H/P or p: Changes Cardiovascular: Other Respiratory: Shortness of breath Objective Vitals Vital Signs Date Time Temp Pulse Resp B/P (MAP) Pulse Ox O2 Delivery O2 Flow Rate FiO2 11/16/24 10:00 123/54 11/16/24 09:26 94 Room Air* 0 21 11/16/24 08:43 98.1 80 20 98.1 Intake/Output Intake and Output 11/16/24 07:00 Intake Total 1300 ml Output Total 2 ml Balance 1298 ml Intake Oral 1050 ml IV Total 250 ml Output Urine Total 2 ml # Voids 1 General Appearance: Alert, Oriented X3, Cooperative, No acute distress Lungs: Clear to auscultation, Normal air movement Cardiovascular: Regular rate, Normal S1, Normal S2, No murmurs Abdomen: Normal bowel sounds, Soft, No tenderness, No hepatospenomegaly Extremities: No edema Medications Current Medications Medications Dose Ordered Sig/Sherice Route Start Time Stop Time Status Last Admin Dose Admin Atorvastatin Calcium 40 mg HS PO 11/09/24 22:00 11/15/24 22:02 40 MG Ondansetron HCl 4 mg Q4HP PRN IV 11/09/24 21:45 Acetaminophen 650 mg Q6HP PRN PO 11/09/24 21:45 Nitroglycerin 0.4 mg Q5MINP PRN SL 11/09/24 21:45 Morphine Sulfate 2 mg Q30M PRN IV 11/09/24 21:45 Albuterol 2.5 mg Q6HPRN PRN NEB 11/10/24 05:30 Cancel Flecainide Acetate 50 mg Q12HR PO 11/10/24 22:00 11/15/24 22:02 50 MG Ceftriaxone Sodium 50 ml @ 100 mls/hr DAILY@09 IV 11/11/24 09:00 11/16/24 08:34 100 MLS/HR Aspirin 81 mg DAILY PO 11/12/24 10:00 11/16/24 10:00 81 MG Diagnostic Test (Pha) 1 strip ACHS 11/13/24 17:00 11/16/24 11:35 1 STRIP Insulin Human Regular ACHS SC 11/13/24 17:00 11/16/24 11:48 8 UNITS Dextrose 50 ml UD PRN IV 11/13/24 12:00 Doxycycline Hyclate 100 ml @ 50 mls/hr Q12HR IV 11/13/24 18:15 11/16/24 10:01 50 MLS/HR Apixaban 5 mg BID PO 11/13/24 22:00 11/16/24 09:59 5 MG Furosemide 20 mg DAILY PO 11/14/24 10:00 11/16/24 10:00 20 MG Albuterol 2.5 mg Q4HPRN PRN NEB 11/14/24 13:00 11/14/24 22:25 2.5 MG Magnesium Oxide 800 mg DAILY PO 11/15/24 10:00 11/16/24 10:00 800 MG Insulin Glargine 15 units BID@0700,2200 SC 11/15/24 22:00 11/16/24 06:01 15 UNITS Laboratory Results Laboratory Tests 11/14/24 04:28 11/15/24 04:59 Urinalysis Test 11/12/24 04:25 Urine Color Yellow (Yellow) Urine Clarity Clear (Clear) Urine pH 6.0 (5.0-9.0) Urine Specific [place] 1.021 (1.001-1.035) Urine Protein Negative (Negative) Urine Ketones Negative (Negative) Urine Blood Negative /uL (Negative) Urine Nitrite Negative (Negative) Urine Bilirubin Negative (Negative) Urine Urobilinogen Normal mg/dL (Negative) Urine Leukocyte Esterase 1+ /uL (Negative) Urine RBC 7 /hpf (0 - 4) Urine Microscopic WBC 4 /HPF (0-5) Urine Squamous Epithelial Cells Few /hpf (<5) Urine Bacteria None seen /hpf (None Seen) Urine Glucose Trace mg/dL (Normal) Microbiology Microbiology Date/Time Source Procedure Growth Status 11/10/24 11:54 Nose MRSA Screen - Final Complete Assessment/Plan Assessment/Plan Troponin likely due to NSTEMI type 2 due to atrial fibrillation Paroxysmal atrial fibrillation Mild to moderate mitral regurgitation Type 2 diabetes Hypertension Peripheral arterial disease Osteomyelitis of the left 5th digit Mixed hyperlipidemia Viral pneumonitis versus pulmonary edema History of onwlb-glt-kxci amputation of the right leg Plan Continue Eliquis Continue flecainide Ceftriaxone for the osteomyelitis And azithromycin for possible viral pneumonitis Lipitor Insulin as needed Losartan Cardiology consult Echocardiogram reviewed from last admission She had a normal stress test last admission also Full code Advance directives discussed for 20 minutes 11/11/2024: Chest pain with shortness of breaths, rule out coronary artery disease, The patient was seen by Cardiology and she is scheduled to have a heart catheterization today or tomorrow Continue flecainide and Eliquis IV antibiotics for possible underlying pneumonitis Aspirin Atrial fibrillation: Echocardiogram and Cardiolite stress test were done 1 week ago reported negative Peripheral arterial disease mild 11/12/24: ABGs on room air pending Discharge planning once ABGs is done 11/13/2024: Flash pulmonary edema with pleural effusion and atelectasis Paroxysmal atrial fibrillation Hypertension Type 2 diabetes Mixed hyperlipidemia Osteomyelitis of the left 5th digit Possible underlying pneumonia Plan Continue Lasix IV Continue IV antibiotics Rocephin and add doxycycline IV Cardiology was contacted again to see the patient Pulmonary consultation Hold metoprolol and losartan Eliquis 5 mg b.i.d. Flecainide 50 mg twice a day Aspirin Lipitor Oxygen as needed 11/14/2024: Pulmonary edema: Resolved, continue Lasix 20 mg p.o. daily Repeat the echocardiogram CTA of the chest showed no PE Continue IV antibiotics for the pneumonia Continue Eliquis and flecainide Hold metoprolol due to hypotension Med neb treatments p.r.n. Oxygen as needed Out of bed as tolerated Continue aspirin and Lipitor 11/15/2024: Pulmonary edema: Improved, continue Lasix p.o. Echocardiogram is pending Chest x-ray shows improved congestion Continue Eliquis and flecainide Lipitor Aspirin Med neb treatments as needed Rocephin and doxycycline IV Discussed with the daughter at the bedside Monitor closely Start physical therapy and ambulate as tolerated for preparation for discharge in the next 1-2 day 11/16/2024: Start physical therapy Med neb treatments as needed Incentive spirometry Out of bed as tolerated Plan discussed with: Patient My Orders Orders - KRIS GONZALEZ MD Procedure Category Date Status Time Chest Portable XY 11/15/24 Resulted 13:10 Pt Request For Service PT 11/15/24 Logged 14:39 Insulin Lantus PHA 11/15/24 In Process (Glargine) (Lantus) 22:00 Date of Service: November 16, 2024 Billing Provider: KRIS GONZALEZ MD Common Visit Codes: [id number] INP/OBS CARE(HIGH) KRIS GONZALEZ MD November 16, 2024 12:30
--- NOTE | 2024-11-16 19:44 | DVHPN2 ---
Progress Note - Dictate Date Seen: November 16, 2024 Medical Necessity Reason Pt with a Central, PICC or Fol: No vital signs Vital Sign Date Time Temp Pulse Resp B/P (MAP) Pulse Ox O2 Delivery O2 Flow Rate FiO2 11/16/24 16:56 98.0 43 18 143/85 (104) 96 98.0 11/16/24 09:26 Room Air* 0 21 Total Intake and Output 11/15/24 11/15/24 11/16/24 15:00 23:00 07:00 Intake Total 150 ml 800 ml 350 ml Output Total 2 ml Balance 150 ml 798 ml 350 ml medications Current Medications Medications Dose Ordered Sig/Sherice Route Start Time Stop Time Status Last Admin Dose Admin Atorvastatin Calcium 40 mg HS PO 11/09/24 22:00 11/15/24 22:02 40 MG Ondansetron HCl 4 mg Q4HP PRN IV 11/09/24 21:45 Acetaminophen 650 mg Q6HP PRN PO 11/09/24 21:45 Nitroglycerin 0.4 mg Q5MINP PRN SL 11/09/24 21:45 Morphine Sulfate 2 mg Q30M PRN IV 11/09/24 21:45 Albuterol 2.5 mg Q6HPRN PRN NEB 11/10/24 05:30 Cancel Flecainide Acetate 50 mg Q12HR PO 11/10/24 22:00 11/15/24 22:02 50 MG Ceftriaxone Sodium 50 ml @ 100 mls/hr DAILY@09 IV 11/11/24 09:00 11/16/24 08:34 100 MLS/HR Aspirin 81 mg DAILY PO 11/12/24 10:00 11/16/24 10:00 81 MG Diagnostic Test (Pha) 1 strip ACHS 11/13/24 17:00 11/16/24 17:09 1 STRIP Insulin Human Regular ACHS SC 11/13/24 17:00 11/16/24 17:17 4 UNITS Dextrose 50 ml UD PRN IV 11/13/24 12:00 Doxycycline Hyclate 100 ml @ 50 mls/hr Q12HR IV 11/13/24 18:15 11/16/24 10:01 50 MLS/HR Apixaban 5 mg BID PO 11/13/24 22:00 11/16/24 09:59 5 MG Furosemide 20 mg DAILY PO 11/14/24 10:00 11/16/24 10:00 20 MG Albuterol 2.5 mg Q4HPRN PRN NEB 11/14/24 13:00 11/14/24 22:25 2.5 MG Magnesium Oxide 800 mg DAILY PO 11/15/24 10:00 11/16/24 10:00 800 MG Insulin Glargine 20 units BID@0700,2200 SC 11/16/24 22:00 laboratory and microbiology Laboratory Tests 11/15/24 04:59 11/14/24 04:28 Test 11/15/24 04:59 Range/Units Serum Glucose 268 H 74-106 mg/dL Assessment/Plan Impression: Acute hypoxic respiratory failure Noninvasive ventilation Pulmonary edema Pneumonia Atelectasis Pleural effusions Patient seen and examined Events: Low oxygen requirements On 2 liters nasal cannula No distress Labs and imaging reviewed CTA reviewed; no pulmonary embolism. Bilateral pleural effusions. Bilateral lower lobe opacities. Atelectasis. Plan: Supplemental oxygen Titrate to keep O2 sats above 92% Incentive spirometry Prn bipap Continue antibiotics F/u culture Diurese Monitor renal function Monitor electrolytes Supplement as necessary Monitor ins and outs Glycemic control Accu-Cheks, ISS. DVT prophylaxis Dietary Evaluation Review Comments: 1. Glucerna 240ml BID if PO intake <50% 2. Refer to CDE on DC 3. Continue current POC Expected Outcomes/Goals: To meet >75% estimated needs Fu 3-5 days Plan discussed with: Patient RICARDO EDMONDSON MD November 16, 2024 19:44
[2024-11-16] MEDS: INSULIN LANTUS (GLARGINE) 1 /0.01ml (100units/ml) SC SCH (21:45)
[2024-11-17] VITALS (11 sets, daily range): BP systolic 129–147; BP diastolic 55–73; PULSE 80–87; RESP 18–19; TEMP 98.1–98.6; O2SAT 93–97
[2024-11-17 06:32] LABS: Anion Gap 10 (5-15); Carbon Dioxide 24 mmol/L (20-31); Potassium 4.2 mmol/L (3.5-5.1); Sodium 141 mmol/L (136-145)
[2024-11-17 06:33] LABS: Calcium 9.2 mg/dL (8.7-10.4)
[2024-11-17 06:38] LABS: BUN/Creatinine Ratio 15.7 (10.0-20.0); Blood Urea Nitrogen 13 mg/dL (9-23)
[2024-11-17 06:39] LABS: Magnesium 1.9 mg/dL (1.6-2.6)
[2024-11-17 06:48] LABS: Chloride 107 mmol/L (98-107); Glucose 123 mg/dL (74-106)
--- NOTE | 2024-11-17 12:20 | DVHPN2 ---
Progress Note - Dictate Date Seen: November 17, 2024 Medical Necessity Reason Pt with a Central, PICC or Fol: No vital signs Vital Sign Date Time Temp Pulse Resp B/P (MAP) Pulse Ox O2 Delivery O2 Flow Rate FiO2 11/17/24 09:22 140/60 11/17/24 09:00 98.6 87 18 97 98.6 11/17/24 08:03 Room Air* 0 21 Total Intake and Output 11/16/24 11/16/24 11/17/24 14:59 22:59 06:59 Intake Total 150 ml 1040 ml 500 ml Output Total 325 ml Balance 150 ml 1040 ml 175 ml medications Current Medications Medications Dose Ordered Sig/Sherice Route Start Time Stop Time Status Last Admin Dose Admin Atorvastatin Calcium 40 mg HS PO 11/09/24 22:00 11/16/24 21:59 40 MG Ondansetron HCl 4 mg Q4HP PRN IV 11/09/24 21:45 Acetaminophen 650 mg Q6HP PRN PO 11/09/24 21:45 Nitroglycerin 0.4 mg Q5MINP PRN SL 11/09/24 21:45 Morphine Sulfate 2 mg Q30M PRN IV 11/09/24 21:45 Albuterol 2.5 mg Q6HPRN PRN NEB 11/10/24 05:30 Cancel Flecainide Acetate 50 mg Q12HR PO 11/10/24 22:00 11/17/24 09:22 50 MG Ceftriaxone Sodium 50 ml @ 100 mls/hr DAILY@09 IV 11/11/24 09:00 11/17/24 08:03 100 MLS/HR Aspirin 81 mg DAILY PO 11/12/24 10:00 11/17/24 09:21 81 MG Diagnostic Test (Pha) 1 strip ACHS 11/13/24 17:00 11/17/24 12:10 1 STRIP Insulin Human Regular ACHS SC 11/13/24 17:00 11/16/24 21:44 3 UNITS Dextrose 50 ml UD PRN IV 11/13/24 12:00 Doxycycline Hyclate 100 ml @ 50 mls/hr Q12HR IV 11/13/24 18:15 11/17/24 09:21 50 MLS/HR Apixaban 5 mg BID PO 11/13/24 22:00 11/17/24 09:22 5 MG Furosemide 20 mg DAILY PO 11/14/24 10:00 11/17/24 09:22 20 MG Albuterol 2.5 mg Q4HPRN PRN NEB 11/14/24 13:00 11/14/24 22:25 2.5 MG Magnesium Oxide 800 mg DAILY PO 11/15/24 10:00 11/17/24 09:21 800 MG Insulin Glargine 20 units BID@0700,2200 SC 11/16/24 22:00 11/16/24 21:45 20 UNITS laboratory and microbiology Laboratory Tests 11/17/24 05:27 11/14/24 04:28 Test 11/17/24 05:27 Range/Units Serum Glucose 123 H 74-106 mg/dL Assessment/Plan Impression: Acute hypoxic respiratory failure Noninvasive ventilation Pulmonary edema Pneumonia Atelectasis Pleural effusions Patient seen and examined Events: improving on room air Labs and imaging reviewed CTA reviewed; no pulmonary embolism. Bilateral pleural effusions. Bilateral lower lobe opacities. Atelectasis. echo pending Plan: Incentive spirometry Continue antibiotics F/u culture Diurese Monitor renal function Monitor electrolytes Supplement as necessary Monitor ins and outs Glycemic control Accu-Cheks, ISS. DVT prophylaxis Dietary Evaluation Review Comments: 1. Glucerna 240ml BID if PO intake <50% 2. Refer to CDE on DC 3. Continue current POC Expected Outcomes/Goals: To meet >75% estimated needs Fu 3-5 days Plan discussed with: Patient RICARDO EDMONDSON MD November 17, 2024 12:20
--- NOTE | 2024-11-17 13:35 | DVHSR ---
APPROVED REPORT EXAM: LIMITED Two-dimensional and M-mode echocardiogram with Doppler and color Doppler. Blood Pressure: 152/73 mmHg INDICATION SOB RISK FACTORS Height: 65, Weight: 164 DIMENSIONS EF (%) 68.0 (55-70%)Rt. Atrium (1.9-4.0cm)Asc. Aorta cm Mitral Valve MitralMitral Stenosis E/A ratio0.02D MVAcm2 Tricuspid Valve TR Velocity2.59m/s [id number] Other Information Technically limited study due to EF and right sided pressures only. Conclusion Technically difficult study. Difficult acoustic windows. From the limited views obtained there appears to be mild left atrial enlargement. Mild aortic root e nlargement. Mild concentric LVH is possible. Endocardial structures are not clearly visualized due to poor Sigmoid septum present. From the limited views obtained the valves appear to be structurally normal. Tricuspid and pulmonic appear to be normal. There is mild mitral annular calcification. Questionably some mild aortic scle rosis. The pulmonic is not clearly visualized. Left ventricular systolic performance is preserved. EF is approximately 60% with normal right ventri cular function. There is mild tricuspid regurgitation. No pericardial effusion masses or vegetations. Inflow patterns not suggestive of impaired diastolic relaxation.
--- NOTE | 2024-11-17 21:31 | DVHPN2 ---
Subjective She is better She is on room air now Ambulating Reviewed: Care Plan, H&P, Medications Changes from previous H/P or p: Changes Cardiovascular: Other Respiratory: Shortness of breath Objective Vitals Vital Signs Date Time Temp Pulse Resp B/P (MAP) Pulse Ox O2 Delivery O2 Flow Rate FiO2 11/17/24 20:00 96 Room Air* 0 21 11/17/24 16:38 98.1 80 18 130/55 (80) 98.1 Intake/Output Intake and Output 11/17/24 07:00 Intake Total 1690 ml Output Total 325 ml Balance 1365 ml Intake Oral 1440 ml IV Total 250 ml Output Urine Total 325 ml # Voids 6 # Bowel Movements 2 General Appearance: Alert, Oriented X3, Cooperative, No acute distress Lungs: Clear to auscultation, Normal air movement Cardiovascular: Regular rate, Normal S1, Normal S2, No murmurs Abdomen: Normal bowel sounds, Soft, No tenderness, No hepatospenomegaly Extremities: No edema Medications Current Medications Medications Dose Ordered Sig/Sherice Route Start Time Stop Time Status Last Admin Dose Admin Atorvastatin Calcium 40 mg HS PO 11/09/24 22:00 11/17/24 21:08 40 MG Ondansetron HCl 4 mg Q4HP PRN IV 11/09/24 21:45 Acetaminophen 650 mg Q6HP PRN PO 11/09/24 21:45 Nitroglycerin 0.4 mg Q5MINP PRN SL 11/09/24 21:45 Morphine Sulfate 2 mg Q30M PRN IV 11/09/24 21:45 Albuterol 2.5 mg Q6HPRN PRN NEB 11/10/24 05:30 Cancel Flecainide Acetate 50 mg Q12HR PO 11/10/24 22:00 11/17/24 21:08 50 MG Ceftriaxone Sodium 50 ml @ 100 mls/hr DAILY@09 IV 11/11/24 09:00 11/17/24 08:03 100 MLS/HR Aspirin 81 mg DAILY PO 11/12/24 10:00 11/17/24 09:21 81 MG Diagnostic Test (Pha) 1 strip ACHS 11/13/24 17:00 11/17/24 16:43 1 STRIP Insulin Human Regular ACHS SC 11/13/24 17:00 11/17/24 16:53 8 UNITS Dextrose 50 ml UD PRN IV 11/13/24 12:00 Doxycycline Hyclate 100 ml @ 50 mls/hr Q12HR IV 11/13/24 18:15 11/17/24 21:07 50 MLS/HR Apixaban 5 mg BID PO 11/13/24 22:00 11/17/24 21:08 5 MG Furosemide 20 mg DAILY PO 11/14/24 10:00 11/17/24 09:22 20 MG Albuterol 2.5 mg Q4HPRN PRN NEB 11/14/24 13:00 11/14/24 22:25 2.5 MG Magnesium Oxide 800 mg DAILY PO 11/15/24 10:00 11/17/24 09:21 800 MG Insulin Glargine 20 units BID@0700,2200 SC 11/16/24 22:00 11/16/24 21:45 20 UNITS Laboratory Results Laboratory Tests 11/14/24 04:28 11/17/24 05:27 Chemistry Test 11/17/24 05:27 Calcium Level 9.2 mg/dL (8.7-10.4) Magnesium Level 1.9 mg/dL (1.6-2.6) Urinalysis Test 11/12/24 04:25 Urine Color Yellow (Yellow) Urine Clarity Clear (Clear) Urine pH 6.0 (5.0-9.0) Urine Specific Malcolm 1.021 (1.001-1.035) Urine Protein Negative (Negative) Urine Ketones Negative (Negative) Urine Blood Negative /uL (Negative) Urine Nitrite Negative (Negative) Urine Bilirubin Negative (Negative) Urine Urobilinogen Normal mg/dL (Negative) Urine Leukocyte Esterase 1+ /uL (Negative) Urine RBC 7 /hpf (0 - 4) Urine Microscopic WBC 4 /HPF (0-5) Urine Squamous Epithelial Cells Few /hpf (<5) Urine Bacteria None seen /hpf (None Seen) Urine Glucose Trace mg/dL (Normal) Microbiology Microbiology Date/Time Source Procedure Growth Status 11/10/24 11:54 Nose MRSA Screen - Final Complete Assessment/Plan Assessment/Plan Troponin likely due to NSTEMI type 2 due to atrial fibrillation Paroxysmal atrial fibrillation Mild to moderate mitral regurgitation Type 2 diabetes Hypertension Peripheral arterial disease Osteomyelitis of the left 5th digit Mixed hyperlipidemia Viral pneumonitis versus pulmonary edema History of [id number] amputation of the right leg Plan Continue Eliquis Continue flecainide Ceftriaxone for the osteomyelitis And azithromycin for possible viral pneumonitis Lipitor Insulin as needed Losartan Cardiology consult Echocardiogram reviewed from last admission She had a normal stress test last admission also Full code Advance directives discussed for 20 minutes 11/11/2024: Chest pain with shortness of breaths, rule out coronary artery disease, The patient was seen by Cardiology and she is scheduled to have a heart catheterization today or tomorrow Continue flecainide and Eliquis IV antibiotics for possible underlying pneumonitis Aspirin Atrial fibrillation: Echocardiogram and Cardiolite stress test were done 1 week ago reported negative Peripheral arterial disease mild 11/12/24: ABGs on room air pending Discharge planning once ABGs is done 11/13/2024: Flash pulmonary edema with pleural effusion and atelectasis Paroxysmal atrial fibrillation Hypertension Type 2 diabetes Mixed hyperlipidemia Osteomyelitis of the left 5th digit Possible underlying pneumonia Plan Continue Lasix IV Continue IV antibiotics Rocephin and add doxycycline IV Cardiology was contacted again to see the patient Pulmonary consultation Hold metoprolol and losartan Eliquis 5 mg b.i.d. Flecainide 50 mg twice a day Aspirin Lipitor Oxygen as needed 11/14/2024: Pulmonary edema: Resolved, continue Lasix 20 mg p.o. daily Repeat the echocardiogram CTA of the chest showed no PE Continue IV antibiotics for the pneumonia Continue Eliquis and flecainide Hold metoprolol due to hypotension Med neb treatments p.r.n. Oxygen as needed Out of bed as tolerated Continue aspirin and Lipitor 11/15/2024: Pulmonary edema: Improved, continue Lasix p.o. Echocardiogram is pending Chest x-ray shows improved congestion Continue Eliquis and flecainide Lipitor Aspirin Med neb treatments as needed Rocephin and doxycycline IV Discussed with the daughter at the bedside Monitor closely Start physical therapy and ambulate as tolerated for preparation for discharge in the next 1-2 day 11/16/2024: Start physical therapy Med neb treatments as needed Incentive spirometry Out of bed as tolerated 11/17/24: Continue the current care DC planning for tomorrow Plan discussed with: Patient My Orders Orders - KRIS GONZALEZ MD Procedure Category Date Status Time Basic Metabolic Panel LAB 11/18/24 Verified 04:00 Lipid Panel LAB 11/18/24 Verified 04:00 Magnesium LAB 11/18/24 Verified 04:00 Date of Service: November 17, 2024 Billing Provider: KRIS GONZALEZ MD Common Visit Codes: [id number] INP/OBS CARE(MOD) KRIS GONZALEZ MD November 17, 2024 21:31
[2024-11-18 01:00] VITALS: BP 135/51; PULSE 75; RESP 17; TEMP 97.5; O2SAT 94
[2024-11-18 05:00] VITALS: BP 147/56; PULSE 75; RESP 18; TEMP 98.3; O2SAT 94
[2024-11-18 06:47] LABS: Potassium 3.8 mmol/L (3.5-5.1); Sodium 141 mmol/L (136-145)
[2024-11-18 06:48] LABS: Anion Gap 9 (5-15); Calcium 9.1 mg/dL (8.7-10.4); Carbon Dioxide 24 mmol/L (20-31)
[2024-11-18 06:53] LABS: BUN/Creatinine Ratio 16.9 (10.0-20.0); Blood Urea Nitrogen 14 mg/dL (9-23); Glucose 98 mg/dL (74-106)
[2024-11-18 06:54] LABS: Magnesium 1.8 mg/dL (1.6-2.6)
[2024-11-18 07:04] LABS: Chloride 108 mmol/L (98-107)
[2024-11-18 08:00] VITALS: PULSE 77
[2024-11-18 08:13] LABS: Triglycerides 72 mg/dL (< 150)
[2024-11-18 08:14] LABS: LDL Cholesterol 55 mg/dL (< 100)
[2024-11-18 08:15] LABS: Cholesterol 95 mg/dL (< 200)
[2024-11-18 08:20] LABS: HDL Cholesterol 29 mg/dL (40-59)
[2024-11-18 09:00] VITALS: BP 146/67; PULSE 87; RESP 18; TEMP 97.8; O2SAT 96
[2024-11-18 09:46] VITALS: PULSE 87; RESP 15; O2SAT 95
[2024-11-18] MEDS ORDERED: FURO1TAB33 PO (09:46)
--- NOTE | 2024-11-18 09:50 | DVHDS2 ---
Discharge Summary Date of Admission November 09, 2024 at 21:37 Date of Discharge: November 18, 2024 Labs/Diagnostic Data: Laboratory Results Test 11/18/24 06:40 11/18/24 06:17 11/14/24 04:28 11/13/24 12:36 POC Glucose 128 mg/dl (70-106) Sodium Level 141 mmol/L (136-145) Potassium Level 3.8 mmol/L (3.5-5.1) Chloride Level 108 mmol/L (98-107) Carbon Dioxide Level 24 mmol/L (20-31) Anion Gap 9 (5-15) Blood Urea Nitrogen 14 mg/dL (9-23) Creatinine 0.83 mg/dL (0.550-1.02) Glomerular Filtration Rate Calc 74 mL/min (>90) BUN/Creatinine Ratio 16.9 (10.0-20.0) Serum Glucose 98 mg/dL (74-106) Calcium Level 9.1 mg/dL (8.7-10.4) Magnesium Level 1.8 mg/dL (1.6-2.6) Triglycerides Level 72 mg/dL (< 150) Cholesterol Level 95 mg/dL (< 200) LDL Cholesterol 55 mg/dL (< 100) HDL Cholesterol 29 mg/dL (40-59) White Blood Count 6.4 10^3/uL (4.4-10.8) Red Blood Count 4.05 10^6/uL (4.0-5.20) Hemoglobin 10.9 g/dL (12.2-16.2) Hematocrit 32.2 % (36.0-46.0) Mean Corpuscular Volume 79.4 fL (80.0-100.0) Mean Corpuscular Hemoglobin 26.8 pg (28.0-32.0) Mean Corpuscular Hemoglobin Concent 33.8 g/dL (32.0-36.0) Red Cell Distribution Width 15.1 % (11.8-14.3) Platelet Count 340 10^3/uL (140-450) Mean Platelet Volume 8.8 fL (6.9-10.8) Neutrophils (%) (Auto) 61.3 % (37.0-80.0) Lymphocytes (%) (Auto) 25.7 % (10.0-50.0) Monocytes (%) (Auto) 11.8 % (0.0-12.0) Eosinophils (%) (Auto) 0.6 % (0.0-7.0) Basophils (%) (Auto) 0.6 % (0.0-2.0) Neutrophils # (Auto) 3.9 10 ^3/uL (1.6-8.6) Lymphocytes # (Auto) 1.7 10 ^3/uL (0.4-5.4) Monocytes # (Auto) 0.8 10 ^3/uL (0-1.3) Eosinophils # (Auto) 0 10 ^3/uL (0-0.8) Basophils # (Auto) 0 10 ^3/uL (0-0.2) Nucleated Red Blood Cells 0.0 % Total Bilirubin 0.6 mg/dL (0.2-1.0) Aspartate Amino Transferase (AST) 22 U/L (13-40) Alanine Aminotransferase (ALT) 19 U/L (7-40) Alkaline Phosphatase 55 U/L (46-116) Total Protein 6.5 g/dL (5.7-8.2) Albumin 3.4 g/dL (3.2-4.8) Blood Gas Specimen Type Arterial Blood Gas Sample Site Right brachial Blood Gas Patient Temperature 37.0 Arterial Blood Date Drawn [id number] Arterial Blood pH 7.274 (7.350-7.450) Arterial Blood Partial Pressure CO2 41.1 mmHg (32.0-45.0) Arterial Blood Partial Pressure O2 83.7 mmHg (83.0-108.0) Arterial Blood HCO3 18.6 mmol/L (21.0-28.0) Arterial Blood Oxygen Saturation 94.0 % (94.0-98.0) Arterial Blood Base Excess -7.8 mmol/L (-2.0-3.0) Arterial Blood Oxyhemoglobin 92.8 % (94.0-98.0) Arterial Blood Carboxyhemoglobin 0.9 % (0.5-1.5) Arterial Blood Methemoglobin 0.4 % (0.0-1.5) Valerio Test N/a Blood Gas Total Hemoglobin 13.70 g/dL (12.0-16.0) Blood Gas Set Respiration Rate 12.0 Blood Gas Modality Mask - bipap FiO2 % 60.0 Blood Gas EPAP 5 Blood Gas IPAP 12 Test 11/13/24 06:14 11/12/24 06:10 11/12/24 04:25 11/10/24 12:04 B-Type Natriuretic Peptide 150.21 pg/mL (0-100) Prothrombin Time 11.1 sec (9.3-11.8) Prothrombin Time INR 1.05 (0.9-1.15) Activated Partial Thromboplast Time 25.5 SEC (24.5-34.5) Urine Color Yellow (Yellow) Urine Clarity Clear (Clear) Urine pH 6.0 (5.0-9.0) Urine Specific Logan 1.021 (1.001-1.035) Urine Protein Negative (Negative) Urine Ketones Negative (Negative) Urine Blood Negative /uL (Negative) Urine Nitrite Negative (Negative) Urine Bilirubin Negative (Negative) Urine Urobilinogen Normal mg/dL (Negative) Urine Leukocyte Esterase 1+ /uL (Negative) Urine RBC 7 /hpf (0 - 4) Urine Microscopic WBC 4 /HPF (0-5) Urine Squamous Epithelial Cells Few /hpf (<5) Urine Bacteria None seen /hpf (None Seen) Urine Glucose Trace mg/dL (Normal) Influenza Type A Antigen Negative (Negative) Influenza Type B Antigen Negative (Negative) SARS-CoV-2 Antigen (Rapid) Negative (NEGATIVE) Test 11/10/24 08:38 Troponin I High Sensitivity 65 ng/L (</=34) Other Laboratory Tests 11/18/24 06:17 11/14/24 04:28 Brief Hx & Hospital Course: Final diagnoses: NSTEMI type 2 due to atrial fibrillation Paroxysmal atrial fibrillation Mild to moderate mitral regurgitation Type 2 diabetes Hypertension Peripheral arterial disease Osteomyelitis of the left 5th digit Mixed hyperlipidemia Bilateral lung pneumonitis Pulmonary edema, resolved History of [id number] amputation of the right leg Acute hypoxic respiratory failure, resolved 74-year-old female who was admitted for palpitations and atrial fibrillation This was her 2nd admission and therefore she was evaluated again with a CT angiogram which was negative Repeat echocardiogram showed still normal ejection fraction Also a heart catheterization was done this time which showed no coronary artery disease Overall she was started on Eliquis and flecainide and then cardiology also recommended to give her metoprolol however she developed hypotension and bradycardia and therefore she was given a bolus of 250 mL of normal saline but that led to pulmonary edema and acute respiratory failure and she needed high- flow oxygen and BiPAP for few hours. She was diuresed with Lasix which resolved the pulmonary edema and she was also started on IV antibiotics to take care of any underlying infection Following that she was continued on Lasix daily and the repeat echocardiogram was normal Her oxygen demand decreased until she became on room air again Now she is ambulating on room air with her oxygen saturation stayed in the mid 90s She is tolerating flecainide and Eliquis and her blood pressure is starting to go a little higher and therefore we will restart her losartan at 25 mg daily now, she takes 50 mg at home Continue the Lasix p.r.n. No metoprolol Continue the other home medications Follow up with her primary care physician as soon as possible She also has an appointment with Dr. Mackay Condition at Discharge: Stable Final Diagnosis/Problems List NSTEMI type 2 due to atrial fibrillation Paroxysmal atrial fibrillation Mild to moderate mitral regurgitation Type 2 diabetes Hypertension Peripheral arterial disease Osteomyelitis of the left 5th digit Mixed hyperlipidemia Bilateral lung pneumonitis Pulmonary edema, resolved History of [id number] amputation of the right leg Acute hypoxic respiratory failure, resolved Discharge Disposition: Home SNF Discharge Will this Physician continue t: No Discharge Instruct/Medications Diet: Consistent carbohydrate, Cardiac 2g Na,low cholest Activity: No Restrictions, As Tolerated Follow Up/Referral: PCP JEAN-PIERRE Medications: Eliquis 5 mg b.i.d. Flecainide 50 mg twice a day Lipitor Doxycycline Lasix 20 mg daily p.r.n. Resume other home medications Discharge Statement: "Patient was advised to return to the ER or call 911 if any headaches, dizziness, shortness of breath, chest pain, abdominal pain, bleeding, fevers, or worsening of medical condition. Patient was counseled about treatment plan, medications, possible side effects, patientverbalized understanding. All questions were answered to the best of my ability. This discharge took greater then 30 minutes in planning, reviewing documentation, counseling the patient, and discussing with other team members." ASSESSMENT ASSESSMENT Assessment NSTEMI type 2 due to atrial fibrillation Paroxysmal atrial fibrillation Mild to moderate mitral regurgitation Type 2 diabetes Hypertension Peripheral arterial disease Osteomyelitis of the left 5th digit Mixed hyperlipidemia Bilateral lung pneumonitis Pulmonary edema, resolved History of [id number] amputation of the right leg Acute hypoxic respiratory failure, resolved Date of Service: November 18, 2024 Billing Provider: KRIS GONZALEZ MD Common Visit Codes: [id number] DISCH DAY >30min KRIS GONZALEZ MD November 18, 2024 09:50
[2024-11-18 09:52] VITALS: PULSE 85; RESP 18; O2SAT 100
== END 2024-11-18 11:30 | disposition home or self-care (01) | DRG 280 ==
LOC: ER 18:50 → EDBD 18:50 → OVERFLOW 21:37 → TELE-WESTW 21:41 → TELE-CENTR 23:38 → TELE-WESTW 11-10 05:32
PROVIDERS: ADMIT Internal Medicine Geriatric Medicine; ATTEND Internal Medicine Geriatric Medicine
PROC: 4A023N7 Measurement of Cardiac Sampling and Pressure, Left Heart, Percutaneous Approach (ICD-10-PCS; 2024-11-12)
PROC: B211YZZ Fluoroscopy of Multiple Coronary Arteries using Other Contrast (ICD-10-PCS; 2024-11-12)
PROC: B215YZZ Fluoroscopy of Left Heart using Other Contrast (ICD-10-PCS; 2024-11-12)
PROC: 5A09357 Assistance with Respiratory Ventilation, Less than 24 Consecutive Hours, Continuous Positive Airway Pressure (ICD-10-PCS; principal; 2024-11-13)
DX: I48.0 Paroxysmal atrial fibrillation (principal); J18.9 Pneumonia, unspecified organism; I21.A1 Myocardial infarction type 2; J96.01 Acute respiratory failure with hypoxia; J98.11 Atelectasis; J98.4 Other disorders of lung; I34.0 Nonrheumatic mitral (valve) insufficiency; Z20.822 Contact with and (suspected) exposure to COVID-19; E11.51 Type 2 diabetes mellitus with diabetic peripheral angiopathy without gangrene; E11.65 Type 2 diabetes mellitus with hyperglycemia; E11.69 Type 2 diabetes mellitus with other specified complication; E78.2 Mixed hyperlipidemia; I11.0 Hypertensive heart disease with heart failure; Z79.01 Long term (current) use of anticoagulants; Z79.4 Long term (current) use of insulin; Z89.511 Acquired absence of right leg below knee
CPT/HCPCS: 36415; 36600; 71045; 71275; 80048; 80053; 80061; 81001; 82805; 82962; 83735; 83880; 84484; 85025; 85610; 85730; 86850; 86900; 86901; 87081; 87426; 87804; 93005; 93306; 93458; 94640; 94660; 97110; 97116; 97163; 97530; 99152; 99291; G0378; J1815; J2250